=== PATIENT | female | born 1940 | race Caucasian/White ===

== ENCOUNTER 2019-09-11 15:50 | IRF | payer MEDICARE, SELFPAY ==
--- NOTE | ~2019-09-11 | XR_ITS ---
EXAMINATION: XR chest 2V DATE: 09/23/2019 14:01 INDICATION: Fever TECHNIQUE: Frontal and lateral views of the chest are obtained COMPARISON: None available FINDINGS: There are airspace opacities left lower lobe. A small left pleural effusion is present. The re is no pneumothorax. The heart size is normal for technique. There are changes of prior cardiac robert selvin. A loop monitor device is implanted in the left anterior chest wall. A coronary artery stent is noted. There is moderate thoracic spondylosis. IMPRESSION: 1. Small left pleural effusion. 2. Left basilar airspace opacity, consistent with atelectasis versus pneumonia. Reviewed, dictated and finalized at location A.
--- NOTE | ~2019-09-11 | MR_ITS ---
EXAMINATION: MR brain/brain stem wo/w con DATE: 09/19/2019 12:28 INDICATION: Weakness. TECHNIQUE: Magnetic resonance imaging (MRI) of the brain and brainstem was performed without and with 14 mL MultiHance intravenous contrast. Sequences included sagittal and axial T1-weighted FSE, axial diffusion-weighted FS EPI, axial T2*-weighted GRE, axial T2-weighted FLAIR Propeller, and axial T2-we ighted Propeller. Postcontrast sequences included axial and coronal T1-weighted FSE. Apparent diffusi on coefficient (ADC) maps were created. COMPARISON: None. FINDINGS: There is a large distribution of increased T2-weighted signal intensity involving the right frontal, temporal, parietal, and adnexa upper lobes, right insula, right basal ganglia, and right th alamus in expected distribution of right middle cerebral artery. There are areas of cortical and subc ortical increased T1-weighted signal intensity and decreased T2*weighted signal intensity within this volume. There is a large distribution of contrast enhancement within this volume with a cortical pre dominance. There is enlargement of this area of the brain with 10 mm leftward midline shift. Right la teral ventricle and third ventricle are small. There are scattered areas of nonspecific increased T2- weighted signal intensity in the left cerebral white matter, which is within normal limits for the pa tient's age. The paranasal sinuses are clear. There are likely changes of ocular lens replacement robert geries. The mastoid air cells are normal. IMPRESSION: 1. Large subacute ischemic infarct in the expected distribution of right middle cerebral artery with areas of hemorrhagic conversion. 2. 10 mm leftward midline shift. Reviewed, dictated and finalized at location A.
--- NOTE | ~2019-09-11 | XR_ITS ---
EXAMINATION: XR barium swallow modified DATE: 09/18/2019 11:01 INDICATION: Dysphagia. TECHNIQUE: Modified barium esophagram was performed by myself to administered fluoroscopy, in conjun ction with speech pathologist who administered barium in varying consistencies as per speech patholog ist documentation. This was recorded on tape. A single fluoroscopic spot image was recorded. The DAP for this procedure was 2.7 Gycm2. Fluoroscopy exposure time was 3.4 minutes. FINDINGS: Oral stage: Slow bolus formation. Pharyngeal phase: Adequate function. Laryngeal penetration: Trace with solids and thin liquids. Aspiration: None. Laryngeal sensitivity: Present. IMPRESSION: Trace laryngeal penetration with solids and thin liquids. Please refer to speech patholo gist findings and specific feeding recommendations. Reviewed, dictated and finalized at location A. IMPRESSION: Trace laryngeal penetration with solids and thin liquids. Please r efer to speech pathologist findings and specific feeding recommendations.
--- NOTE | ~2019-09-11 | MR_ITS ---
EXAMINATION: MR brain/brain stem wo con DATE: 09/26/2019 10:25 INDICATION: Stroke. Memory deficits. TECHNIQUE: Magnetic resonance imaging (MRI) of the brain and brainstem was performed without intraven ous contrast. Sequences included sagittal and axial T1-weighted SE, axial diffusion-weighted FS SE, a xial T2*-weighted GRE, axial T2-weighted FLAIR, and axial T2-weighted FSE. Postcontrast axial and cor onal T1-weighted SE was obtained. Apparent diffusion coefficient (ADC) maps were created. COMPARISON: Brain MR dated 09/19/2019 FINDINGS: Again seen is a large region of increased T2 signal loss of restricted diffusion involving the right frontal, temporal and parietal lobes as well as the right insula and portions of the right basal gang radha and right thalamus consistent with subacute infarct. Similar pattern of cortical and subcortical increased T1 signal with susceptibility artifact with signal loss on T2*weighted images consistent wi th regions of hemorrhagic conversion laminar necrosis. The degree of cytotoxic edema has decreased wi th reduction in the amount of associated mass effect with decrease in amount of effacement of the rig ht lateral ventricle and with resolution of prior right left midline shift at the ventricular septum. No new regions of restricted diffusion to suggest new acute infarct. No abnormal intracranial mass l esion or abnormal extra-axial fluid collections. There is mild age-appropriate scattered nonspecific increased T2-weighted signal intensity in the cerebral white matter, predominantly involving the deep and periventricular white matter. Symmetric prominence of the sulci and ventricles consistent with m ild age-appropriate diffuse cerebral volume loss. Flow voids are seen in the cerebral arteries on the T2-weighted sequences consistent with their expected patency. Changes of bilateral intraocular lens replacement. Mild mucoperiosteal thickening the bilateral ethmoid sinuses. IMPRESSION: 1. Decrease in cytotoxic edema and associated localized mass effect/swelling associated with a large subacute ischemic infarct in the expected vascular distribution of the right middle cerebral artery w ith unchanged regions of hemorrhagic conversion and laminar necrosis. The prior secondary right to le ft midline shift has resolved. Reviewed, dictated and finalized at location A. IMPRESSION: 1. Decrease in cytotoxic edema and associated localized mass effect/swelling as sociated with a large subacute ischemic infarct in the expected vascular distri bution of the right middle cerebral artery with unchanged regions of hemorrhagi c conversion and laminar necrosis. The prior secondary right to left midline sh ift has resolved.
[2019-09-11 15:50] VITALS: BP 144/55; PULSE 68; RESP 19; TEMP 36.7; O2SAT 99; BMI 26.2
--- NOTE | 2019-09-11 16:19 | ADMGEN ---
This patient, Randa Call, was admitted to [facility] Room 226-02. Patient/family oriented to hospital policies and general routines including ID bracelet, bed and alarms, visiting hours, pain management, procedures, bathroom and other care routines, personal items, smoking policy, room service/diet, and visiting hours. Valuables list has been completed. Information on how to activate the Rapid Response Team has been discussed. Patient/Family are encouraged to report perceived risks to care and to ask questions if they do not understand what they are told or what they should do.
[2019-09-11 18:12] LABS: Glucose Point of Care 233 (65-105)
[2019-09-11] MEDS: INSULIN ASPART (*BKC) 100 UNITS/ML SUB-Q (18:52)
[2019-09-11 21:11] VITALS: PULSE 78
[2019-09-11] MEDS: ATORVASTATIN 40 MG TABLET 80 MG PO (21:11)
[2019-09-11] MEDS: METOPROLOL TARTRATE 25 MG TABLET PO (21:11)
[2019-09-11 21:28] LABS: Glucose Point of Care 184 (65-105)
[2019-09-11 22:00] VITALS: BP 144/51; PULSE 69; RESP 18; TEMP 36.4; O2SAT 100
--- NOTE | 2019-09-11 22:30 | WPDCN ---
Assessment and Plan Assessment and plan (1) Recent cerebrovascular accident: Code(s): Z86.73 - Personal history of transient ischemic attack (TIA), and cerebral infarction without residual deficits Status: Acute Assessment and Plan: Currently undergoing rehab in [facility]. Patient does have residual dysphagia and is on a pureed diet with thickened liquids. Continue aspirin, clopidogrel, and statin. (2) Insulin dependent diabetes mellitus: Status: Acute Assessment and Plan: Continue basal insulin. Initiate sliding scale insulin, Accu-Cheks, and hypoglycemic protocol. (3) Essential hypertension: Code(s): I10 - Essential (primary) hypertension Status: Acute Assessment and Plan: Blood pressure on admission was 144/55. Her antihypertensives will be continued. Blood pressures will be monitored daily. (4) Hypothyroidism: Code(s): E03.9 - Hypothyroidism, unspecified Status: Acute Assessment and Plan: Continue levothyroxine. (5) Hyperlipidemia: Code(s): E78.5 - Hyperlipidemia, unspecified Status: Acute Assessment and Plan: Continue statin. She is also on Repatha. Additional Plan Thank you for allowing us to participate in this patient's care. Please do not hesitate to contact us with any questions. We will follow with you. Supervising physician for this medical consultation is Dr. Betty Mas. HPI Data of Consult Date/Time: 09/11/19 22:30 Requesting Physician: Dave Parson MD Primary Care Provider: Fili Brar, [facility] Consult Narrative Narrative: Randa Call is a 78-year-old right handed female with history of recent stroke, hypertension, hyperlipidemia, insulin-dependent diabetes, hypothyroidism, chronic kidney disease, chronic anemia, and coronary artery disease whom the hospitalist service has been consulted for help managing her chronic medical conditions. On August 30, 2019 she awoke from sleep with left-sided weakness and presented to [facility] where she was found to have a right M2 thrombus with mild cerebral edema. She was transferred to [facility] but was not a candidate for tPA given the fact that she presented greater than 4.5 hours after last known well. Unfortunately perfusion imaging was unfavorable and she was not a candidate for endovascular intervention. Additionally, her troponin levels were elevated and she was able to relay to staff that the day prior to her presentation, while outside gardening, that she developed substernal chest pain with shortness of breath. She was then taken to the clinical lab assistant and had percutaneous intervention with a drug-eluting stent to a [place] circumflex which revealed critical ostial stenosis. Her previous bypass grafts were patent and left ventricular systolic function was at the low end of normal. She was continued on aspirin and was started on clopidogrel (reportedly she was on Brilinta prior to this hospitalization). A repeat brain CT done a couple of days after presentation showed possible concerns of intracranial hemorrhage, although it was felt that the findings were due to retained contrast and she was kept on dual anti-platelet therapy. CT of the head and neck showed no significant carotid stenosis and the concern was that her stroke was due to a cardioembolic source/occult atrial fibrillation. A loop recorder has subsequently been inserted. She suffered an acute kidney injury, presumably due to contrast, and a temporary dialysis catheter was placed however she never required dialysis. Her left-sided weakness has improved each day, however she remains on a pureed and thickened liquid diet due to some
[2019-09-12 04:33] LABS: Basophils Absolute Auto 0.1 K/mm3 (0.0-0.1); Basophils Percent Auto 0.7 % (0.2-1.2); Eosinophils Absolute Auto 0.2 K/mm3 (0-0.3); Eosinophils Percent Auto 1.5 % (0-4.4); Hematocrit 27.4 % (37.0-47.0); Hemoglobin 8.9 g/dL (12.0-15.0); Immature Granulocyte Absolute 0.08 K/mm3 (0.00-0.031); Immature Granulocyte Percent A 0.6 % (0-0.5); Lymphocytes Absolute Auto 1.17 K/mm3 (0.9-3.2); Lymphocytes Percent Auto 8.5 % (18.3-44.2); Mean Corpuscular HGB Conc 32.5 g/dl (32-36); Mean Corpuscular Volume 98.6 fl (80-100); Mean Platelet Volume 10.4 fl (7.4-10.4); Monocytes Absolute Auto 0.9 K/mm3 (0.1-0.6); Monocytes Percent Auto 6.4 % (2.6-8.5); Neutrophils Absolute Auto 11.3 K/mm3 (1.3-6.7); Neutrophils Percent Auto 82.3 % (45.5-73.1); Platelet Count Result 341 k/mm3 (150-375); Red Blood Count 2.78 M/mm3 (4.2-5.4); Red Cell Distribution Width 14.4 % (11.5-14.5); White Blood Count 13.7 K/mm3 (4.5-10.0)
[2019-09-12 04:46] LABS: Blood Urea Nitrogen 19 mg/dL (7-17); Calcium 8.1 mg/dL (8.4-10.2); Carbon Dioxide 28 mmol/L (22-30); Chloride 99 mmol/L (98-107); Cholesterol 105 mg/dL (0-200); Estimated CRCL calculation 32 ml/min; Estimated Glomerular Filt Rate 40; Glucose 196 mg/dL (65-105); HDL Direct 73 mg/dL; Potassium 4.4 mmol/L (3.4-5.0); Sodium 133 mmol/L (137-145); Triglycerides 41 mg/dL (<150)
[2019-09-12 05:01] LABS: Hemoglobin A1C 8.6 % (<5.7)
[2019-09-12 05:02] LABS: LDL Cholesterol Direct < 30 mg/dL
[2019-09-12 06:00] VITALS: BP 135/60; PULSE 75; RESP 16; TEMP 36.7; O2SAT 100
[2019-09-12] MEDS: LEVOTHYROXINE SODIUM 150 MCG TABLET PO (06:14)
[2019-09-12 06:59] LABS: Glucose Point of Care 251 (65-105)
[2019-09-12] MEDS: INSULIN ASPART (*BKC) 100 UNITS/ML SUB-Q ×3 (07:28→17:14)
[2019-09-12] MEDS: INSULIN GLARGINE (*BKC) 100 UNITS/ML 10 UNITS SUB-Q (07:29)
[2019-09-12] MEDS: AMLODIPINE BESYLATE 2.5 MG TABLET PO (09:18)
[2019-09-12] MEDS: PAROXETINE 10 MG TABLET PO (09:18)
[2019-09-12] MEDS: CLOPIDOGREL BISULFATE 75 MG TABLET PO (09:18)
[2019-09-12] MEDS: ISOSORBIDE MONONITRATE 60 MG TAB.ER.24H PO (09:18)
[2019-09-12] MEDS: ASPIRIN 81 MG CHEWABLE TABLET PO (09:18)
[2019-09-12 09:19] VITALS: PULSE 75
[2019-09-12] MEDS: METOPROLOL TARTRATE 25 MG TABLET PO ×2 (09:19→20:52)
--- NOTE | 2019-09-12 10:00 | WPDREHABHP ---
H&P: HPI History of Present Illness Chief complaint: cva Narrative: Randa Call is a 78 year old female HISTORY OF PRESENT ILLNESS: The patient's primary rehab impairment category is stroke The etiologic diagnosis is acute right middle cerebral artery stroke I saw this patient [id number] on me the September 12, 2019 at 10:00 a.m. The patient is a 78-year-old the right-handed white woman with a past medical history of diabetes, hypertension, coronary artery disease, myocardial infarction, congestive heart failure, chronic renal insufficiency, hyperlipidemia, hypothyroidism, and depression who presented to [facility] on August 30, 2019 with left-sided weakness and slurring of the speech. Patient reported a cleaning her yard and had a sudden onset of severe Severe midsternal chest pain and shortness of breath. It subsided when she rested. She called a friend later when she was unable to get up and was taken to [facility]. TPA was not administered as she was outside the window for tPA. She was transferred to [facility] on August 30, [address] evaluation[address] A [address] angiography revealed right M2 thrombosis and no carotid stenosis. CT cerebral perfusion scan demonstrated a moderate core infarction with moderate surrounding penumbra in the right MCA distribution. she was admitted with diagnosis of right MCA stroke and non ST elevation myocardial infarction. Repeat CT of the head on September 01 showed contrast staining of the large right MCA distribution infarct involving the right temporal, insular, frontal, and parietal lobes with right to left 4 millimeter midline shift and increased mass effect. Neurology was involved and allowed for permissive hypertension and continue on her statin therapy and started on aspirin and Plavix. A loop recorder was placed to rule out atrial fibrillation. Cardiovascular consult was ordered for elevated troponin consistent with an non ST elevation myocardial infarction. An echocardiogram was performed and she was scheduled for cardiac catheterization her appetite August 27, 2019. Results were as follows. Critical three-vessel coronary artery disease with a de Dov stenosis of the ostium of the circumflex branch, patent 2 of 2 bypass grafts to the distal circumflex and right coronary artery. Ejection fraction 50% and moderate mitral regurgitation. A successful percutaneous coronary intervention was performed with implantation of 2.5 x 12 millimeter drug eluting stent in the ostium of the circumflex branch. Nephrology was consulted on August 31 for worsening renal function and IV fluids were stopped. Acute kidney injury was attributed to contrast nephropathy and further no for toxins were avoided. Her renal function continued to deteriorate and dialysis catheter was inserted on September 04, 2019. She underwent temporary dialysis and her creatinine issues doing down training and has improved to 1.33 at the time the screening was done. Dialysis has been discontinued and catheter was removed and September 10, 2019 patient was diagnosed with a urinary tract infection was placed on Rocephin and completed treatment. She passed her modified barium will swelling on September 07, 2019 and was placed on a mechanically altered missed and moist dysphagia 2 diet with nectar thickened liquids. Duff a hive for supplemental nutrition was removed on September 09 and patient is sitting 50% of breast 1st 90% of lunch on September 10, 2019. Physical examination is continue to reveal left-sided hemiparesis, impaired balance, decreased gross motor control and decreased safety awareness patient is awake and alert x4 and will be discharged to rehab and subcutaneous heparin for DVT prophylaxis. In patient insurance claims supervisor reviewed patient's chart on September 10, 2019 and made the following recommendations. Consider restarting Lantus at a lower dose than previous consider no more than 10 units of and titrate up as appropriate. If daytime blood glucose con
[2019-09-12 11:02] VITALS: BMI 26.2
[2019-09-12 11:49] LABS: Glucose Point of Care 301 (65-105)
[2019-09-12 14:00] VITALS: BP 143/57; PULSE 65; RESP 19; TEMP 36.6; O2SAT 100
--- NOTE | 2019-09-12 14:19 | PM.IMPN ---
Progress Note: A&P Assessment and Plan (1) Recent cerebrovascular accident: Code(s): Z86.73 - Personal history of transient ischemic attack (TIA), and cerebral infarction without residual deficits Status: Acute Assessment and Plan: Currently undergoing rehab in [facility]. Patient does have residual dysphagia and is on a pureed diet with thickened liquids. She remains on aspirin, clopidogrel, and statin therapy. (2) Insulin dependent diabetes mellitus: Status: Acute Assessment and Plan: Hgb A1c 8.6. Continue to monitor with Accu-Cheks and cover with SSI. Continue Lantus and adjust treatment as needed. (3) Essential hypertension: Code(s): I10 - Essential (primary) hypertension Status: Acute Assessment and Plan: Stable, last BP 135/60. She remains on home Norvasc, Imdur, Lopressor. (4) Coronary artery disease: Qualifiers: Coronary Disease-Associated Artery/Lesion type: unspecified vessel or lesion type [place] vs. transplanted heart: unspecified whether [place] or transplanted heart Associated angina: without angina Qualified Code(s): I25.10 - Atherosclerotic heart disease of [place] coronary artery without angina pectoris Code(s): I25.10 - Atherosclerotic heart disease of [place] coronary artery without angina pectoris Status: Chronic Assessment and Plan: Recently had PCI with stent to circumflex at [facility]. Stable, no chest pain. Continue her home medications as above. (5) Hypothyroidism: Qualifiers: Hypothyroidism type: unspecified Qualified Code(s): E03.9 - Hypothyroidism, unspecified Code(s): E03.9 - Hypothyroidism, unspecified Status: Acute Assessment and Plan: Continue home levothyroxine. (6) Hyperlipidemia: Qualifiers: Hyperlipidemia type: unspecified Qualified Code(s): E78.5 - Hyperlipidemia, unspecified Code(s): E78.5 - Hyperlipidemia, unspecified Status: Acute Assessment and Plan: Maintained on home statin therapy, she is also on Repatha. Additional Plan Thank you for allowing us to participate in this patient's care. Please do not hesitate to contact us with any questions. We will follow with you. Subjective Date/time seen: 09/12/19 1300 Interval history: Ms. Call is a 78yo F in [facility] following a right-sided CVA we are seeing in follow up for multiple medical comorbidities. She is in good spirits, feeling well today and offers no complaints other than being a bit tired from working with therapy today. She denies any chest pain, shortness of breath, or cough. She has tolerated oral intake without nausea, vomiting, or abdominal pain. Review of Systems Review of Systems: Narrative: Twelve systems were reviewed with pertinent positives and negatives as per HPI. Exam Narrative: Exam Narrative: General: Female resting comfortably in bed in no acute distress. HEENT: Normocephalic, EOMI, oral mucosa moist. Cardiovascular: Rate and rhythm regular. Respiratory: Lungs clear to auscultation. Respirations are even and nonlabored. Abdomen: Soft, non-tender, non-distended, bowel sounds present. Extremities: Peripheral pulses intact. No edema or erythema. Scattered ecchymosis to bilateral upper extremities. Neuro: Alert and oriented to self, place, and time. Cranial nerves II-XII grossly intact. Speech is clear. Objective Data Vital Signs Vital Signs: Last Vital Signs Temp 98.1 F 09/12/19 06:00 Pulse 75 09/12/19 09:19 Resp 16 09/12/19 06:00 BP 135/60 09/12/19 06:00 Pulse Ox 100 09/12/19 06:00 Intake/Output Intake/Output: Intake & Output 09/09/19 09/10/19 09/11/19 09/12/19 23:59 23:59 23:59 23:59 Intake Total 60 600 Balance 60 600 Meds/Results Medicat
[2019-09-12 17:12] LABS: Glucose Point of Care 213 (65-105)
[2019-09-12] MEDS: ATORVASTATIN 40 MG TABLET 80 MG PO (20:52)
[2019-09-12 21:08] LABS: Glucose Point of Care 169 (65-105)
[2019-09-12 22:00] VITALS: BP 151/49; PULSE 69; RESP 18; TEMP 37; O2SAT 96
[2019-09-13] MEDS: LEVOTHYROXINE SODIUM 150 MCG TABLET PO (05:50)
[2019-09-13 06:00] VITALS: BP 166/61; PULSE 74; RESP 18; TEMP 37; O2SAT 100
[2019-09-13 06:56] LABS: Glucose Point of Care 114 (65-105)
[2019-09-13] MEDS: INSULIN GLARGINE (*BKC) 100 UNITS/ML 10 UNITS SUB-Q (09:43)
[2019-09-13 09:44] VITALS: PULSE 74
[2019-09-13] MEDS: PAROXETINE 10 MG TABLET PO (09:44)
[2019-09-13] MEDS: ASPIRIN 81 MG CHEWABLE TABLET PO (09:44)
[2019-09-13] MEDS: CLOPIDOGREL BISULFATE 75 MG TABLET PO (09:44)
[2019-09-13] MEDS: AMLODIPINE BESYLATE 2.5 MG TABLET PO (09:44)
[2019-09-13] MEDS: METOPROLOL TARTRATE 25 MG TABLET PO ×2 (09:44→21:12)
[2019-09-13] MEDS: ISOSORBIDE MONONITRATE 60 MG TAB.ER.24H PO (09:44)
--- NOTE | 2019-09-13 10:13 | PC.NURSE ---
Spoke to patient's son this morning to see if he knew if she had any of the subq medicaton Repatha that is nonformulary to bring in. Pt's son stated he would check and see if she has some at home. Also asked if he knew what her wishes were regarding her advanced directive and code status. He stated she has always said she did not want to be on life support. Care coordination was requesting a copy of her advance directive be sent to us. Patient advance directive here. speaking with patient again regarding wishes.
--- NOTE | 2019-09-13 11:42 | PCDIET ---
Nutrition Follow-Up Complete: Nutrition Diagnosis: Suboptimal oral intake related to decreased appetite as evidenced by intakes 30-50%. Nutrition Goal: Patient to consume 50% of meals/supplements or greater. Goal not met. Patient consuming 25-50% of meals on diabetic, pureed diet with mildly thick liquids. Took minimal amount of oral supplement. Recommend changing supplement to no sugar added Thrive Ice Cream (230kcal, 9g protein - mildly thick consistency) BID. Last recorded weight is 76 kg. Bowel Motility: +BM on 09/12/19. Labs Reviewed: Glu (114) - improved Meds Noted: Novolog, Lantus Additional Notes: Groin macerated. Right elbow and left leg with scabs. Will continue to monitor with same goal. Nutrition Monitoring and Evaluation: Follow up in 5 days.
[2019-09-13 11:46] LABS: Glucose Point of Care 221 (65-105)
[2019-09-13] MEDS: INSULIN ASPART (*BKC) 100 UNITS/ML SUB-Q ×2 (12:46→17:15)
[2019-09-13 14:00] VITALS: BP 152/51; PULSE 67; RESP 18; TEMP 36.6; O2SAT 96
--- NOTE | 2019-09-13 14:06 | WPDNEURORHBP ---
Subjective Date/time seen: 09/13/19 14:06 Interval history: this 78-year-old woman is here after having had a right middle cerebral artery territory ischemic infarct with visual field defect and left-sided hemiparesis she is fairly stable denies any headache nausea vomiting chest pain shortness of breath she periodically has some visual hallucination and delusions which is combination of the stroke and also sundowning but remains stable during the daytime only happens after she wakes up from the sleep Review of Systems Review of Systems: All systems reviewed & are unremarkable except as noted in HPI and below Functional Status Ambulation Ability Ability to Ambulate 10 Feet: Moderate Assistance X 1 Ability to Ambulate 50 Feet With 2 Turns: Moderate Assistance X 1 Ambulation Assistive Devices: Walker, Wheeled Transfers Ability Ability to Transfer In/Out of Chair: Moderate Assistance X 1 Exam Const: General: comfortable and no acute distress HENMT: General nose exam: Normal nares present Mouth: Yes moist mucous membranes Eyes: General: appearance normal, both eyes and all related structures Other: left-sided visual field defect which is rather dense Neck: Neck: supple and no JVD Resp: Effort & Inspection: normal respiratory effort Auscultation: clear to auscultation bilaterally Cardio: Rate: regular rate Rhythm: regular rhythm GI: GI Palp: Yes Soft to palpation Auscultation: normal bowel sounds Skin: General skin exam: normal color and no rashes or lesions noted Neuro: Other: patient is awake alert oriented time place and person with fairly decent speech and language function left-sided visual defect and the left-sided hemiparesis Extrem: General: normal to inspection Psych: Mental Status: mental status grossly normal Objective Data Vital Signs Vital Signs: Vital Signs - 24 hr 09/13/19 21:12 09/13/19 21:47 09/14/19 06:00 Temperature 37.0 C 36.1 C L Pulse Rate 78 68 73 Respiratory Rate 20 20 Blood Pressure 150/55 H 167/50 H Pulse Oximetry 99 100 09/14/19 09:28 Temperature Pulse Rate 73 Respiratory Rate Blood Pressure Pulse Oximetry Intake/Output Intake/Output: Intake & Output 09/11/19 09/12/19 09/13/19 09/14/19 23:59 23:59 23:59 23:59 Intake Total 60 850 240 360 Balance 60 850 240 360 Meds/Results Medications: Active Medications Generic Name Dose Route Start Last Admin Trade Name Freq PRN Reason Stop Dose Admin Amlodipine Besylate 5 mg 09/13/19 15:46 09/14/19 09:28 Norvasc PO 5 mg DAILY YAMILE Administration Aspirin 81 mg 09/12/19 09:00 09/14/19 09:28 Aspirin Chewable PO 81 mg DAILY YAMILE Administration Atorvastatin Calcium 80 mg 09/11/19 21:00 09/13/19 21:12 Lipitor PO 80 mg HS YAMILE Administration Clopidogrel Bisulfate 75 mg 09/12/19 09:00 09/14/19 09:28 Plavix PO 75 mg DAILY YAMILE Administration Dextrose 12.5 gm 09/11/19 16:27 Dextrose 50% Syringe IV PUSH PRN PRN Hypoglycemia Protocol Dextrose 12.5 gm 09/11/19 17:42 Dextrose 50% Syringe IV PUSH PRN PRN Hypoglycemia Protocol Glucagon 1 mg 09/11/19 16:27 Glucagon For Inj IM PRN PRN Hypoglycemia Protocol Glucagon 1 mg 09/11/19 17:42 Glucagon For Inj IM PRN PRN Hypoglycemia Protocol Glucose 15 gm 09/11/19 16:27 Glutose 15 PO PRN PRN Hypoglycemia Protocol Glucose 15 gm 09/11/19 17:42 Glutose 15 PO PRN PRN Hypoglycemia Protocol Dextrose 1,000 mls @ 100 mls/hr 09/11/19 16:27 Dextrose 5% 1,000 Ml IVPB PRN PRN Hypoglycemia Protocol Dextrose 1,000 mls @ 100 mls/hr 09/11/19 17:42 Dextrose 5% 1,000 Ml IVPB PRN PRN Hypoglycemia Protocol Insulin Aspart 2 - 5 units 09/11/19 17:00 09/14/19 11:29 Novolog SUB-Q Not Given TIDWM [facility] Protocol Insulin Glargine 10 units 09/12/19 09:00 09/14/19 07:23
--- NOTE | 2019-09-13 15:42 | PM.IMPN ---
Progress Note: A&P Assessment and Plan (1) Recent cerebrovascular accident: Code(s): Z86.73 - Personal history of transient ischemic attack (TIA), and cerebral infarction without residual deficits Status: Acute Assessment and Plan: Currently undergoing rehab in [facility]. Patient does have residual dysphagia and is on a pureed diet with thickened liquids. She remains on aspirin, clopidogrel, and statin therapy. (2) Insulin dependent diabetes mellitus: Status: Chronic Assessment and Plan: Hgb A1c 8.6. Continue to monitor with Accu-Cheks and cover with SSI. Continue Lantus and adjust treatment as needed. (3) Essential hypertension: Code(s): I10 - Essential (primary) hypertension Status: Chronic Assessment and Plan: She remains on home Norvasc, Imdur, Lopressor. BPs elevated to 160s systolic, can increase her home Norvasc and monitor response. (4) Coronary artery disease: Qualifiers: Associated angina: without angina Coronary Disease-Associated Artery/Lesion type: unspecified vessel or lesion type [place] vs. transplanted heart: unspecified whether [place] or transplanted heart Qualified Code(s): I25.10 - Atherosclerotic heart disease of [place] coronary artery without angina pectoris Code(s): I25.10 - Atherosclerotic heart disease of [place] coronary artery without angina pectoris Status: Chronic Assessment and Plan: Recently had PCI with stent to circumflex at [facility]. Stable, no chest pain. Continue her home medications as above. (5) Hypothyroidism: Qualifiers: Hypothyroidism type: unspecified Qualified Code(s): E03.9 - Hypothyroidism, unspecified Code(s): E03.9 - Hypothyroidism, unspecified Status: Acute Assessment and Plan: Continue home levothyroxine. (6) Hyperlipidemia: Qualifiers: Hyperlipidemia type: unspecified Qualified Code(s): E78.5 - Hyperlipidemia, unspecified Code(s): E78.5 - Hyperlipidemia, unspecified Status: Acute Assessment and Plan: Maintained on home statin therapy, she is also on Repatha. Additional Plan Thank you for allowing us to participate in this patient's care. Please do not hesitate to contact us with any questions. We will follow with you. Subjective Date/time seen: 09/13/19 1400 Interval history: Ms. Call is a 78yo F in [facility] following a right-sided CVA we are seeing in follow up for management of several medical comorbidities. She is feeling well today and offers no complaints. She denies any chest pain, shortness of breath, or cough. She has tolerated oral intake without nausea, vomiting, or abdominal pain. She is working well with therapy. Review of Systems Review of Systems: Narrative: Twelve systems were reviewed with pertinent positives and negatives as per HPI. Exam Narrative: Exam Narrative: General: Female resting comfortably in bed in no acute distress. HEENT: Normocephalic, EOMI, oral mucosa moist. Cardiovascular: Rate and rhythm regular. Respiratory: Lungs clear to auscultation. Respirations are even and nonlabored. Abdomen: Soft, non-tender, non-distended, bowel sounds present. Extremities: Peripheral pulses intact. No edema or erythema. Scattered ecchymosis to bilateral upper extremities. Neuro: Alert and oriented to self, place, and time. Cranial nerves II-XII grossly intact. Speech is clear. Objective Data Vital Signs Vital Signs: Last Vital Signs Temp 98 F 09/13/19 14:00 Pulse 67 09/13/19 14:00 Resp 18 09/13/19 14:00 BP 152/51 H 09/13/19 14:00 Pulse Ox 96 09/13/19 14:00 Intake/Output Intake/Output: Intake & Output 09/10/19 09/11/19 09/12/19 09/13/19 23:59 23:59 23:59 23:59 Intake Total 60 850 120 Balance 60
[2019-09-13 17:26] LABS: Glucose Point of Care 219 (65-105)
--- NOTE | 2019-09-13 19:00 | PC.NURSE ---
spoke with Patient's son regarding code status. Pt son stated patient always told him she did not want to be on life support. Spoke with patient as well . Patient stated she would like for us to try to resucsitate her but she does not want her life prolonged on life support. She stated she would like to stay a full code and that if for some reason she needs CPR she has a healthcare POA and they have the ability to further decide from there according to the wishes in her advanced directives.
[2019-09-13 21:12] VITALS: PULSE 78
[2019-09-13] MEDS: ATORVASTATIN 40 MG TABLET 80 MG PO (21:12)
[2019-09-13 21:47] VITALS: BP 150/55; PULSE 68; RESP 20; TEMP 37; O2SAT 99
[2019-09-13 21:56] LABS: Glucose Point of Care 150 (65-105)
[2019-09-14 06:00] VITALS: BP 167/50; PULSE 73; RESP 20; TEMP 36.1; O2SAT 100
[2019-09-14] MEDS: LEVOTHYROXINE SODIUM 150 MCG TABLET PO (06:00)
[2019-09-14 07:03] LABS: Glucose Point of Care 151 (65-105)
[2019-09-14] MEDS: INSULIN GLARGINE (*BKC) 100 UNITS/ML 10 UNITS SUB-Q (07:23)
[2019-09-14 09:28] VITALS: PULSE 73
[2019-09-14] MEDS: CLOPIDOGREL BISULFATE 75 MG TABLET PO (09:28)
[2019-09-14] MEDS: METOPROLOL TARTRATE 25 MG TABLET PO ×2 (09:28→20:45)
[2019-09-14] MEDS: ASPIRIN 81 MG CHEWABLE TABLET PO (09:28)
[2019-09-14] MEDS: AMLODIPINE BESYLATE 5 MG TABLET PO (09:28)
[2019-09-14] MEDS: PAROXETINE 10 MG TABLET PO (09:28)
[2019-09-14] MEDS: ISOSORBIDE MONONITRATE 60 MG TAB.ER.24H PO (09:29)
--- NOTE | 2019-09-14 10:35 | RPD ---
INDIVIDUALIZED PLAN OF CARE FOR Randa Call Brief Synthesis of Pre-Admission Screen, Post-Admission Evaluation and Therapy Evaluations: The patient presents to rehab with Acute right MCA stroke. Comorbidities include acute kidney injury and renal failure requiring dialysis, status post dialysis catheter insertion and removal, NSTEMI, status post loop recorder. hypertension, coronary artery disease, diabetes mellitus with hyperglycemia and hypoglycemia, dyslipidemia, dysphagia, congestive heart failure, edema, malnutrition, aphasia, left-sided hemiparesis, urinary tract infection, elevated troponin, hypothyroidism, depression, anion gap metabolic acidosis, status post cardiac catheterization with stent placement. The patient requires physician services for neurology services, medical oversight, and coordination of care.Emotional needs will be monitored as depression is a common sequelae of stroke. The patient needs physician monitoring and treatment of hypertension, hyperglycemia, hypoglycemia, dysphagia, monitoring for adverse reactions to new medications, monitoring of infection, and pain control. The patient requires nursing services for frequent neuro checks, anticoagulation therapy, medication management and education, pressure relief and skin care management, monitoring of labs, diabetes management and education, and fall/safety precautions. Deficits include:ADLs, Balance, Endurance, Family Training/Education, Mobility, Pain Management, ROM, Safety, Strength, Swallowing, Transfers Electronic Prepress Technician/Case Management for: Discharge Planning and Patient/Family Counseling Physical Therapy: 5 days per week for 60 minutes. Treatments may include: Therapeutic Exercise, Gait Training, Neuromuscular Re-education, Transfer Training, Community Reintegration, Bed Mobility, Patient/Family Education, Wheelchair Mobility Group Therapy/Concurrent Therapy Rationales: -Improve attention span during functional activities in a distracted environment. -Enhance problem solving and/or adequate judgment skills during functional activities in a distracted environment. -Promote increased safety awareness in a distracted environment to reduce fall risk with functional tasks, transfers, and ambulation to allow a more safe, self-sufficient return to the home environment. -Improve dynamic balance skills to promote safety and independence with functional activities in a distracted environment for maximum gain. Occupational Therapy: 5 days per week for 60 minutes. Treatments may include: Therapeutic Exercise, Therapeutic Activity, Cognitive Training, Self-Care Transfer Training, Community Reintegration, Home Management, Patient/Family Education, Wheelchair Mobility Training, Energy Conservation Training Group Therapy/Concurrent Therapy Rationales: -Allow therapist to observe and teach generalization and carry-over of skills learned in individual therapy. -Enhance problem solving and sequencing skills during therapeutic activities in a distracted environment. -Promote increased safety awareness in a realistic setting to reduce fall risk with functional tasks due to visual and verbal distractions. -Increase functional level with ADLs, ADL transfers and use of adaptive equipment through therapeutic activities with others while promoting safety to allow a more safe, self-sufficient return home. Speech Therapy: 5 days per week for 60 minutes. Treatments may include: Dysphasia Therapy, Speech/Language/Communication Therapy, Cognitive Training, Patient/Family Education Group Therapy/Concurrent Therapy - Rationale: -Allow therapist to observe and teach generalization and carry-over of skills learned in individual therapy. -Improve comprehension skills with complex or abstract ideas through discussion in a realistic setting. -Enhance problem solving skills with complex issues during activities in a distracted environment. -Promote increased memory skills and concentration in a distracted environment
[2019-09-14 11:35] LABS: Glucose Point of Care 200 (65-105)
[2019-09-14 14:00] VITALS: BP 153/54; PULSE 67; RESP 18; TEMP 36.7; O2SAT 100
--- NOTE | 2019-09-14 15:35 | WPDNEURORHBP ---
Subjective Date/time seen: 09/14/19 15:35 Interval history: this 78-year-old woman is here after having a stroke with left-sided hemiparesis and left-sided visual field defect she is quite stable doing fairly well denies any headache nausea vomiting chest pain shortness of breath the hospital is following her diabetic status Review of Systems Review of Systems: All systems reviewed & are unremarkable except as noted in HPI and below Functional Status Ambulation Ability Ability to Ambulate 10 Feet: Moderate Assistance X 1 Ability to Ambulate 50 Feet With 2 Turns: Moderate Assistance X 1 Ambulation Assistive Devices: Walker, Wheeled Transfers Ability Ability to Transfer In/Out of Chair: Moderate Assistance X 1 Exam Const: General: comfortable and no acute distress HENMT: General nose exam: Normal nares present Mouth: Yes moist mucous membranes Eyes: General: appearance normal, both eyes and all related structures Neck: Neck: supple and no JVD Resp: Effort & Inspection: normal respiratory effort Auscultation: clear to auscultation bilaterally Cardio: Rate: regular rate Rhythm: regular rhythm GI: GI Palp: Yes Soft to palpation Auscultation: normal bowel sounds Skin: General skin exam: normal color and no rashes or lesions noted Neuro: Other: she is awake and alert and well oriented to time place and person is speech language functions are normal she has a left-sided visual field defect left-sided hemiparesis which are improved Extrem: General: normal to inspection Psych: Mental Status: mental status grossly normal Objective Data Vital Signs Vital Signs: Vital Signs - 24 hr 09/13/19 21:12 09/13/19 21:47 09/14/19 06:00 Temperature 37.0 C 36.1 C L Pulse Rate 78 68 73 Respiratory Rate 20 20 Blood Pressure 150/55 H 167/50 H Pulse Oximetry 99 100 09/14/19 09:28 Temperature Pulse Rate 73 Respiratory Rate Blood Pressure Pulse Oximetry Intake/Output Intake/Output: Intake & Output 09/11/19 09/12/19 09/13/19 09/14/19 23:59 23:59 23:59 23:59 Intake Total 60 850 240 360 Balance 60 850 240 360 Meds/Results Medications: Active Medications Generic Name Dose Route Start Last Admin Trade Name Freq PRN Reason Stop Dose Admin Amlodipine Besylate 5 mg 09/13/19 15:46 09/14/19 09:28 Norvasc PO 5 mg DAILY YAMILE Administration Aspirin 81 mg 09/12/19 09:00 09/14/19 09:28 Aspirin Chewable PO 81 mg DAILY YAMILE Administration Atorvastatin Calcium 80 mg 09/11/19 21:00 09/13/19 21:12 Lipitor PO 80 mg HS YAMILE Administration Clopidogrel Bisulfate 75 mg 09/12/19 09:00 09/14/19 09:28 Plavix PO 75 mg DAILY YAMILE Administration Dextrose 12.5 gm 09/11/19 16:27 Dextrose 50% Syringe IV PUSH PRN PRN Hypoglycemia Protocol Dextrose 12.5 gm 09/11/19 17:42 Dextrose 50% Syringe IV PUSH PRN PRN Hypoglycemia Protocol Glucagon 1 mg 09/11/19 16:27 Glucagon For Inj IM PRN PRN Hypoglycemia Protocol Glucagon 1 mg 09/11/19 17:42 Glucagon For Inj IM PRN PRN Hypoglycemia Protocol Glucose 15 gm 09/11/19 16:27 Glutose 15 PO PRN PRN Hypoglycemia Protocol Glucose 15 gm 09/11/19 17:42 Glutose 15 PO PRN PRN Hypoglycemia Protocol Dextrose 1,000 mls @ 100 mls/hr 09/11/19 16:27 Dextrose 5% 1,000 Ml IVPB PRN PRN Hypoglycemia Protocol Dextrose 1,000 mls @ 100 mls/hr 09/11/19 17:42 Dextrose 5% 1,000 Ml IVPB PRN PRN Hypoglycemia Protocol Insulin Aspart 2 - 5 units 09/11/19 17:00 09/14/19 11:29 Novolog SUB-Q Not Given TIDWM [facility] Protocol Insulin Glargine 10 units 09/12/19 09:00 09/14/19 07:23 Lantus SUB-Q 10 units DAILY YAMILE Administration Isosorbide Mononitrate 60 mg 09/12/19 09:00 09/14/19 09:29 Imdur PO 60 mg DAILY YAMILE Administration Levothyroxine Sodium 150 mcg 09/12/19
--- NOTE | 2019-09-14 15:58 | PM.IMPN ---
Progress Note: A&P Assessment and Plan (1) Recent cerebrovascular accident: Code(s): Z86.73 - Personal history of transient ischemic attack (TIA), and cerebral infarction without residual deficits Status: Acute Assessment and Plan: Currently undergoing rehab [facility]. Patient does have residual dysphagia and is on a pureed diet with thickened liquids. She remains on aspirin, clopidogrel, and statin therapy. (2) Insulin dependent diabetes mellitus: Status: Chronic Assessment and Plan: Hgb A1c 8.6. Continue to monitor with Accu-Cheks and cover with SSI. Continue Lantus and adjust treatment as needed. (3) Essential hypertension: Code(s): I10 - Essential (primary) hypertension Status: Chronic Assessment and Plan: She remains on home Norvasc, Imdur, Lopressor. Increased home Norvasc yesterday, monitor BP. (4) Coronary artery disease: Qualifiers: Coronary Disease-Associated Artery/Lesion type: unspecified vessel or lesion type [place] vs. transplanted heart: unspecified whether [place] or transplanted heart Associated angina: without angina Qualified Code(s): I25.10 - Atherosclerotic heart disease of [place] coronary artery without angina pectoris Code(s): I25.10 - Atherosclerotic heart disease of [place] coronary artery without angina pectoris Status: Chronic Assessment and Plan: Recently had PCI with stent to circumflex at [facility]. Stable, no chest pain. Continue her home medications as above. (5) Hypothyroidism: Qualifiers: Hypothyroidism type: unspecified Qualified Code(s): E03.9 - Hypothyroidism, unspecified Code(s): E03.9 - Hypothyroidism, unspecified Status: Acute Assessment and Plan: Continue home levothyroxine. (6) Hyperlipidemia: Qualifiers: Hyperlipidemia type: unspecified Qualified Code(s): E78.5 - Hyperlipidemia, unspecified Code(s): E78.5 - Hyperlipidemia, unspecified Status: Acute Assessment and Plan: Maintained on home Statin therapy, she is also on Repatha they are trying to bring from home. Additional Plan Thank you for allowing us to participate in this patient's care. Please do not hesitate to contact us with any questions. We will follow with you. Subjective Date/time seen: 09/14/19 15:45 Interval history: Ms. Call is a 78yo F in [facility] following a right-sided CVA we are seeing in follow up for management of several medical comorbidities. She is resting comfortably, feeling well today and offers no complaints. She denies any chest pain, shortness of breath, or cough. She has tolerated oral intake without nausea, vomiting, or abdominal pain. Review of Systems Review of Systems: Narrative: Twelve systems were reviewed with pertinent positives and negatives as per HPI. Exam Narrative: Exam Narrative: General: Female resting comfortably in bed in no acute distress. HEENT: Normocephalic, EOMI, oral mucosa moist. Cardiovascular: Rate and rhythm regular. Respiratory: Lungs clear to auscultation. Respirations are even and non-labored. Abdomen: Soft, non-tender, non-distended, bowel sounds present. Extremities: Peripheral pulses intact. No edema or erythema. Neuro: Alert and oriented to self, place, and time. Cranial nerves II-XII grossly intact. Speech is clear. Objective Data Vital Signs Vital Signs: Last Vital Signs Temp 98.0 F 09/14/19 14:00 Pulse 67 09/14/19 14:00 Resp 18 09/14/19 14:00 BP 153/54 H 09/14/19 14:00 Pulse Ox 100 09/14/19 14:00 Intake/Output Intake/Output: Intake & Output 09/11/19 09/12/19 09/13/19 09/14/19 23:59 23:59 23:59 23:59 Intake Total 60 850 240 360 Balance 60 850 240 360 Meds/Results Medications: Active Medicati
[2019-09-14 17:42] LABS: Glucose Point of Care 173 (65-105)
[2019-09-14 20:45] VITALS: PULSE 68
[2019-09-14] MEDS: ATORVASTATIN 40 MG TABLET 80 MG PO (20:46)
[2019-09-14 21:39] LABS: Glucose Point of Care 173 (65-105)
[2019-09-14 22:00] VITALS: BP 149/55; PULSE 68; RESP 16; TEMP 36.6; O2SAT 100
[2019-09-15 06:00] VITALS: BP 152/70; PULSE 71; RESP 18; TEMP 36.9; O2SAT 100
[2019-09-15] MEDS: LEVOTHYROXINE SODIUM 150 MCG TABLET PO (06:31)
[2019-09-15 06:51] LABS: Glucose Point of Care 167 (65-105)
[2019-09-15 08:00] VITALS: PULSE 71; RESP 18; O2SAT 100
[2019-09-15] MEDS: ISOSORBIDE MONONITRATE 60 MG TAB.ER.24H PO (08:52)
[2019-09-15 08:53] VITALS: PULSE 71
[2019-09-15] MEDS: AMLODIPINE BESYLATE 5 MG TABLET PO (08:53)
[2019-09-15] MEDS: ASPIRIN 81 MG CHEWABLE TABLET PO (08:53)
[2019-09-15] MEDS: METOPROLOL TARTRATE 25 MG TABLET PO ×2 (08:53→20:42)
[2019-09-15] MEDS: INSULIN GLARGINE (*BKC) 100 UNITS/ML 10 UNITS SUB-Q (08:53)
[2019-09-15] MEDS: CLOPIDOGREL BISULFATE 75 MG TABLET PO (08:53)
[2019-09-15] MEDS: PAROXETINE 10 MG TABLET PO (08:53)
[2019-09-15 12:07] LABS: Glucose Point of Care 302 (65-105)
--- NOTE | 2019-09-15 12:56 | WPDNEURORHBP ---
Subjective Date/time seen: Left hemiparesiswith left visual field cut09/15/19 12:56 Review of Systems Review of Systems: All systems reviewed & are unremarkable except as noted in HPI and below Functional Status Ambulation Ability Ability to Ambulate 10 Feet: Moderate Assistance X 1 Ability to Ambulate 50 Feet With 2 Turns: Moderate Assistance X 1 Ambulation Assistive Devices: Walker, Wheeled Transfers Ability Ability to Transfer In/Out of Chair: Moderate Assistance X 1 Exam Const: General: cooperative, comfortable and no acute distress HENMT: Head: normal to inspection General nose exam: No nasal discharge present Eyes: General: appearance normal, both eyes and all related structures Neck: Neck: full ROM, supple and no JVD Resp: Effort & Inspection: normal respiratory effort Auscultation: clear to auscultation bilaterally Cardio: Rate: regular rate Rhythm: regular rhythm GI: GI Palp: Yes No hepatosplenomegaly present Auscultation: normal bowel sounds Skin: General skin exam: no rashes or lesions noted Neuro: Motor exam (neuro): Abnormal motor strength present (improving left hemiparesis) Psych: Appearance: grossly normal Objective Data Vital Signs Vital Signs: Vital Signs - 24 hr 09/14/19 14:00 09/14/19 20:45 09/14/19 22:00 Temperature 36.7 C 36.6 C Pulse Rate 67 68 68 Respiratory Rate 18 16 Blood Pressure 153/54 H 149/55 H Pulse Oximetry 100 100 09/15/19 06:00 09/15/19 08:00 09/15/19 08:53 Temperature 36.9 C Pulse Rate 71 71 71 Respiratory Rate 18 18 Blood Pressure 152/70 H Pulse Oximetry 100 100 Intake/Output Intake/Output: Intake & Output 09/12/19 09/13/19 09/14/19 09/15/19 23:59 23:59 23:59 23:59 Intake Total 850 240 600 120 Balance 850 240 600 120 Meds/Results Medications: Active Medications Generic Name Dose Route Start Last Admin Trade Name Freq PRN Reason Stop Dose Admin Amlodipine Besylate 5 mg 09/13/19 15:46 09/15/19 08:53 Norvasc PO 5 mg DAILY YAMILE Administration Aspirin 81 mg 09/12/19 09:00 09/15/19 08:53 Aspirin Chewable PO 81 mg DAILY YAMILE Administration Atorvastatin Calcium 80 mg 09/11/19 21:00 09/14/19 20:46 Lipitor PO 80 mg HS YAMILE Administration Clopidogrel Bisulfate 75 mg 09/12/19 09:00 09/15/19 08:53 Plavix PO 75 mg DAILY YAMILE Administration Dextrose 12.5 gm 09/11/19 16:27 Dextrose 50% Syringe IV PUSH PRN PRN Hypoglycemia Protocol Dextrose 12.5 gm 09/11/19 17:42 Dextrose 50% Syringe IV PUSH PRN PRN Hypoglycemia Protocol Glucagon 1 mg 09/11/19 16:27 Glucagon For Inj IM PRN PRN Hypoglycemia Protocol Glucagon 1 mg 09/11/19 17:42 Glucagon For Inj IM PRN PRN Hypoglycemia Protocol Glucose 15 gm 09/11/19 16:27 Glutose 15 PO PRN PRN Hypoglycemia Protocol Glucose 15 gm 09/11/19 17:42 Glutose 15 PO PRN PRN Hypoglycemia Protocol Dextrose 1,000 mls @ 100 mls/hr 09/11/19 16:27 Dextrose 5% 1,000 Ml IVPB PRN PRN Hypoglycemia Protocol Dextrose 1,000 mls @ 100 mls/hr 09/11/19 17:42 Dextrose 5% 1,000 Ml IVPB PRN PRN Hypoglycemia Protocol Insulin Aspart 2 - 5 units 09/11/19 17:00 09/15/19 08:52 Novolog SUB-Q Not Given TIDWM [facility] Protocol Insulin Glargine 10 units 09/12/19 09:00 09/15/19 08:53 Lantus SUB-Q 10 units DAILY YAMILE Administration Isosorbide Mononitrate 60 mg 09/12/19 09:00 09/15/19 08:52 Imdur PO 60 mg DAILY YAMILE Administration Levothyroxine Sodium 150 mcg 09/12/19 06:30 09/15/19 06:31 Synthroid PO 150 mcg 0630 YAMILE Administration Metoprolol Tartrate 25 mg 09/11/19 21:00 09/15/19 08:53 Lopressor PO 25 mg Q12HR YAMILE Administration Non-Formulary Medication 140 mg 09/17/19 09:00 Evolocumab [Repatha Syringe] SUB-Q 09/17/19 09:01 ONCE ONE Paroxetine HCl 1
[2019-09-15] MEDS: INSULIN ASPART (*BKC) 100 UNITS/ML SUB-Q ×2 (13:17→17:11)
[2019-09-15 14:00] VITALS: BP 154/58; PULSE 80; RESP 18; TEMP 36.7; O2SAT 98
[2019-09-15 16:56] LABS: Glucose Point of Care 212 (65-105)
[2019-09-15 20:42] VITALS: PULSE 76
[2019-09-15] MEDS: ATORVASTATIN 40 MG TABLET 80 MG PO (20:42)
[2019-09-15 21:18] LABS: Glucose Point of Care 204 (65-105)
[2019-09-15 22:00] VITALS: BP 146/52; PULSE 71; RESP 18; TEMP 37.1; O2SAT 100
[2019-09-16 06:00] VITALS: BP 168/58; PULSE 72; RESP 19; TEMP 37.1; O2SAT 100
[2019-09-16 06:38] LABS: Glucose Point of Care 219 (65-105)
[2019-09-16] MEDS: LEVOTHYROXINE SODIUM 150 MCG TABLET PO (06:49)
[2019-09-16 08:00] VITALS: PULSE 72; RESP 19; O2SAT 100
[2019-09-16] MEDS: ASPIRIN 81 MG CHEWABLE TABLET PO (09:34)
[2019-09-16] MEDS: CLOPIDOGREL BISULFATE 75 MG TABLET PO (09:34)
[2019-09-16] MEDS: ISOSORBIDE MONONITRATE 60 MG TAB.ER.24H PO (09:35)
[2019-09-16] MEDS: PAROXETINE 10 MG TABLET PO (09:35)
[2019-09-16] MEDS: AMLODIPINE BESYLATE 5 MG TABLET PO (09:35)
[2019-09-16] MEDS: METOPROLOL TARTRATE 25 MG TABLET PO ×2 (09:35→19:41)
[2019-09-16] MEDS: INSULIN GLARGINE (*BKC) 100 UNITS/ML 10 UNITS SUB-Q (09:37)
[2019-09-16] MEDS: INSULIN ASPART (*BKC) 100 UNITS/ML SUB-Q ×2 (09:39→12:49)
--- NOTE | 2019-09-16 10:06 | P.PNIM_ITS ---
Progress Note: A&P Assessment and Plan (1) Recent cerebrovascular accident: Code(s): Z86.73 - Personal history of transient ischemic attack (TIA), and cerebral infarction without residual deficits Status: Acute Assessment and Plan: * Currently undergoing rehab in [facility]. * Patient does have residual dysphagia and is on a pureed diet with thickened liquids. * She remains on aspirin, clopidogrel, and statin therapy. (2) Insulin dependent diabetes mellitus: Status: Chronic Assessment and Plan: * Hgb A1c 8.6. Continue to monitor with Accu-Cheks and cover with SSI. Continue Lantus and adjust treatment as needed. * Blood sugars in 200s, will increase Lantus. (3) Essential hypertension: Code(s): I10 - Essential (primary) hypertension Status: Chronic Assessment and Plan: * She remains on home Norvasc, Imdur, Lopressor. Increased home Norvasc 5/7 to 5mg, monitor BP. * BPs 168/58 this AM, increase Norvasc to 10mg. (4) Coronary artery disease: Qualifiers: Associated angina: without angina Coronary Disease-Associated Artery/Lesion type: unspecified vessel or lesion type [place] vs. transplanted heart: unspecified whether [place] or transplanted heart Qualified Code(s): I25.10 - Atherosclerotic heart disease of [place] coronary artery without angina pectoris Code(s): I25.10 - Atherosclerotic heart disease of [place] coronary artery without angina pectoris Status: Chronic Assessment and Plan: * Recently had PCI with stent to circumflex at [facility]. Stable, no chest pain. * Continue her home medications as above. (5) Hypothyroidism: Qualifiers: Hypothyroidism type: unspecified Qualified Code(s): E03.9 - Hypothyroidism, unspecified Code(s): E03.9 - Hypothyroidism, unspecified Status: Acute Assessment and Plan: * Continue home levothyroxine. (6) Hyperlipidemia: Qualifiers: Hyperlipidemia type: unspecified Qualified Code(s): E78.5 - Hyp erlipidemia, unspecified Code(s): E78.5 - Hyperlipidemia, unspecified Status: Acute Assessment and Plan: * Maintained on home Statin therapy, she is also on Repatha they are trying to bring from home. Subjective Date/time seen: 09/16/19 0945 Interval history: Ms. Call is a 78yo F in [facility] following a right-sided CVA we are seeing in follow up for management of several medical comorbidities. She is resting comfortably in bed. She is doing well with therapy. She denies any chest pain, shortness of breath, or cough. She is tolerating oral intake without nausea or vomiting. Review of Systems Review of Systems: Narrative: Twelve systems were reviewed with pertinent positives and negatives as per HPI. Exam Narrative: Exam Narrative: General: Female resting comfortably in bed in no acute distress. HEENT: Normocephalic, EOMI, oral mucosa moist. Cardiovascular: Rate and rhythm regular. Respiratory: Lungs clear to auscultation. Respirations are even and non- labored. Abdomen: Soft, non-tender, non-distended, bowel sounds present. Extremities: Peripheral pulses intact. No edema or erythema. Neuro: Alert and oriented to self, place, and time. Speech is clear. Objective Data Vital Signs Vital Signs: Last Vital Signs Temp 98.8 F 09/16/19 06:00
--- NOTE | 2019-09-16 10:06 | PM.IMPN ---
Progress Note: A&P Assessment and Plan (1) Recent cerebrovascular accident: Code(s): Z86.73 - Personal history of transient ischemic attack (TIA), and cerebral infarction without residual deficits Status: Acute Assessment and Plan: Currently undergoing rehab in [facility]. Patient does have residual dysphagia and is on a pureed diet with thickened liquids. She remains on aspirin, clopidogrel, and statin therapy. (2) Insulin dependent diabetes mellitus: Status: Chronic Assessment and Plan: Hgb A1c 8.6. Continue to monitor with Accu-Cheks and cover with SSI. Continue Lantus and adjust treatment as needed. Blood sugars in 200s, will increase Lantus. (3) Essential hypertension: Code(s): I10 - Essential (primary) hypertension Status: Chronic Assessment and Plan: She remains on home Norvasc, Imdur, Lopressor. Increased home Norvasc 5/7 to 5mg, monitor BP. BPs 168/58 this AM, increase Norvasc to 10mg. (4) Coronary artery disease: Qualifiers: Associated angina: without angina Coronary Disease-Associated Artery/Lesion type: unspecified vessel or lesion type [place] vs. transplanted heart: unspecified whether [place] or transplanted heart Qualified Code(s): I25.10 - Atherosclerotic heart disease of [place] coronary artery without angina pectoris Code(s): I25.10 - Atherosclerotic heart disease of [place] coronary artery without angina pectoris Status: Chronic Assessment and Plan: Recently had PCI with stent to circumflex at [facility]. Stable, no chest pain. Continue her home medications as above. (5) Hypothyroidism: Qualifiers: Hypothyroidism type: unspecified Qualified Code(s): E03.9 - Hypothyroidism, unspecified Code(s): E03.9 - Hypothyroidism, unspecified Status: Acute Assessment and Plan: Continue home levothyroxine. (6) Hyperlipidemia: Qualifiers: Hyperlipidemia type: unspecified Qualified Code(s): E78.5 - Hyperlipidemia, unspecified Code(s): E78.5 - Hyperlipidemia, unspecified Status: Acute Assessment and Plan: Maintained on home Statin therapy, she is also on Repatha they are trying to bring from home. Subjective Date/time seen: 09/16/19 0945 Interval history: Ms. Call is a 78yo F in [facility] following a right-sided CVA we are seeing in follow up for management of several medical comorbidities. She is resting comfortably in bed. She is doing well with therapy. She denies any chest pain, shortness of breath, or cough. She is tolerating oral intake without nausea or vomiting. Review of Systems Review of Systems: Narrative: Twelve systems were reviewed with pertinent positives and negatives as per HPI. Exam Narrative: Exam Narrative: General: Female resting comfortably in bed in no acute distress. HEENT: Normocephalic, EOMI, oral mucosa moist. Cardiovascular: Rate and rhythm regular. Respiratory: Lungs clear to auscultation. Respirations are even and non-labored. Abdomen: Soft, non-tender, non-distended, bowel sounds present. Extremities: Peripheral pulses intact. No edema or erythema. Neuro: Alert and oriented to self, place, and time. Speech is clear. Objective Data Vital Signs Vital Signs: Last Vital Signs Temp 98.8 F 09/16/19 06:00 Pulse 72 09/16/19 06:00 Resp 19 09/16/19 06:00 BP 168/58 H 09/16/19 06:00 Pulse Ox 100 09/16/19 06:00 Intake/Output Intake/Output: Intake & Output 09/13/19 09/14/19 09/15/19 09/16/19 23:59 23:59 23:59 23:59 Intake Total 240 600 480 120 Balance 240 600 480 120 Meds/Results Medications: Active Medications Generic Name Dose Route Start Last Admin Trade Name Freq PRN Reason Stop Dose Admin Amlodipine Besylate 5 mg 09/13/19 15
[2019-09-16 11:54] LABS: Glucose Point of Care 287 (65-105)
[2019-09-16 14:00] VITALS: BP 158/54; PULSE 86; RESP 18; TEMP 36.1; O2SAT 96
[2019-09-16 17:06] LABS: Glucose Point of Care 172 (65-105)
[2019-09-16 19:41] VITALS: PULSE 88
[2019-09-16] MEDS: ATORVASTATIN 40 MG TABLET 80 MG PO (19:41)
[2019-09-16 20:58] LABS: Glucose Point of Care 310 (65-105)
[2019-09-16 22:00] VITALS: BP 147/50; PULSE 69; RESP 16; TEMP 37.2; O2SAT 99
[2019-09-17 05:01] LABS: Basophils Absolute Auto 0.1 K/mm3 (0.0-0.1); Eosinophils Absolute Auto 0.1 K/mm3 (0-0.3); Eosinophils Percent Auto 1.3 % (0-4.4); Hematocrit 26.7 % (37.0-47.0); Hemoglobin 8.8 g/dL (12.0-15.0); Immature Granulocyte Absolute 0.01 K/mm3 (0.00-0.031); Immature Granulocyte Percent A 0.1 % (0-0.5); Lymphocytes Absolute Auto 1.19 K/mm3 (0.9-3.2); Lymphocytes Percent Auto 16.8 % (18.3-44.2); Mean Corpuscular Hemoglobin 31.7 pg (26-34); Mean Platelet Volume 10.6 fl (7.4-10.4); Monocytes Absolute Auto 0.9 K/mm3 (0.1-0.6); Monocytes Percent Auto 12.7 % (2.6-8.5); Neutrophils Absolute Auto 4.8 K/mm3 (1.3-6.7); Neutrophils Percent Auto 68.1 % (45.5-73.1); Platelet Count Result 287 k/mm3 (150-375); Red Blood Count 2.78 M/mm3 (4.2-5.4); White Blood Count 7.1 K/mm3 (4.5-10.0)
[2019-09-17 05:28] LABS: Blood Urea Nitrogen 11 mg/dL (7-17); Calcium 8.1 mg/dL (8.4-10.2); Carbon Dioxide 31 mmol/L (22-30); Chloride 100 mmol/L (98-107); Estimated CRCL calculation 41 ml/min; Estimated Glomerular Filt Rate 54; Glucose 247 mg/dL (65-105); Sodium 133 mmol/L (137-145)
[2019-09-17 06:00] VITALS: BP 160/50; PULSE 67; RESP 16; TEMP 36.8; O2SAT 99
[2019-09-17] MEDS: LEVOTHYROXINE SODIUM 150 MCG TABLET PO (06:05)
[2019-09-17 06:12] LABS: Glucose Point of Care 243 (65-105)
--- NOTE | 2019-09-17 10:19 | P.PNIM_ITS ---
Progress Note: A&P Assessment and Plan (1) Recent cerebrovascular accident: Code(s): Z86.73 - Personal history of transient ischemic attack (TIA), and cerebral infarction without residual deficits Status: Acute Assessment and Plan: * Currently undergoing rehab in [facility]. * Patient does have residual dysphagia and is on a pureed diet with thickened liquids. * She remains on aspirin, clopidogrel, and statin therapy. (2) Insulin dependent diabetes mellitus: Status: Chronic Assessment and Plan: * Hgb A1c 8.6. Continue to monitor with Accu-Cheks and cover with SSI. Continue Lantus and adjust treatment as needed. * Lantus was increased to 14 units 09/16. Blood sugars still elevated today - increase Lantus to 20 units. (3) Essential hypertension: Code(s): I10 - Essential (primary) hypertension Status: Chronic Assessment and Plan: * She remains on home Norvasc, Imdur, Lopressor. * BPs still elevated. Home Norvasc increased / to 5mg; BPs still high - increased to 10 mg 09/16. Monitor BP and adjust treatment as needed. (4) Coronary artery disease: Qualifiers: Associated angina: without angina Coronary Disease-Associated Artery/Lesion type: unspecified vessel or lesion type [place] vs. transplanted heart: unspecified whether [place] or transplanted heart Qualified Code(s): I25.10 - Atherosclerotic heart disease of [place] coronary artery without angina pectoris Code(s): I25.10 - Atherosclerotic heart disease of [place] coronary artery without angina pectoris Status: Chronic Assessment and Plan: * Recently had PCI with stent to circumflex at [facility]. Stable, no chest pain. * Continue her home medications as above. (5) Hypothyroidism: Qualifiers: Hypothyroidism type: unspecified Qualified Code(s): E03.9 - Hypothyroidism, unspecified Code(s): E03.9 - Hypothyroidism, unspecified Status: Acute Assessment and Plan: * Continue home levothyroxine. (6) Hyperlipidemia: Qualifiers: Hyperlipidemia type: unspecified Qualified Code(s): E78.5 - Hyperlipidemia, unspecified Code(s): E78.5 - Hyperlipidemia, unspecified Status: Acute Assessment and Plan: * Maintained on home Statin therapy, she is also on Repatha at home. Subjective Date/time seen: 09/17/19 0945 Interval history: Ms. Call is a 78yo F in [facility] following a right-sided CVA we are seeing in follow up for management of several medical comorbidities. She is sitting up in bedside chair. She is doing well today but feels tired. She denies any chest pain, shortness of breath, or cough. She is tolerating oral intake without nausea or vomiting. Review of Systems Review of Systems: Narrative: Twelve systems were reviewed with pertinent positives and negatives as per HPI. Exam Narrative: Exam Narrative: General: Female resting comfortably in bed in no acute distress. HEENT: Normocephalic, EOMI, oral mucosa moist. Cardiovascular: Rate and rhythm regular. Respiratory: Lungs clear to auscultation. Respirations are even and non- labored. Abdomen: Soft, non-tender, non-distended, bowel sounds present. Extremities: Peripheral pulses intact. No edema or erythema. Neuro: Alert and oriented to self, place, and time. Speech is clear. Objective Data Vital Signs Vital Signs:
--- NOTE | 2019-09-17 10:19 | PM.IMPN ---
Progress Note: A&P Assessment and Plan (1) Recent cerebrovascular accident: Code(s): Z86.73 - Personal history of transient ischemic attack (TIA), and cerebral infarction without residual deficits Status: Acute Assessment and Plan: Currently undergoing rehab in [facility]. Patient does have residual dysphagia and is on a pureed diet with thickened liquids. She remains on aspirin, clopidogrel, and statin therapy. (2) Insulin dependent diabetes mellitus: Status: Chronic Assessment and Plan: Hgb A1c 8.6. Continue to monitor with Accu-Cheks and cover with SSI. Continue Lantus and adjust treatment as needed. Lantus was increased to 14 units 09/16. Blood sugars still elevated today - increase Lantus to 20 units. (3) Essential hypertension: Code(s): I10 - Essential (primary) hypertension Status: Chronic Assessment and Plan: She remains on home Norvasc, Imdur, Lopressor. BPs still elevated. Home Norvasc increased 5/ to 5mg; BPs still high - increased to 10 mg 09/16. Monitor BP and adjust treatment as needed. (4) Coronary artery disease: Qualifiers: Associated angina: without angina Coronary Disease-Associated Artery/Lesion type: unspecified vessel or lesion type [place] vs. transplanted heart: unspecified whether [place] or transplanted heart Qualified Code(s): I25.10 - Atherosclerotic heart disease of [place] coronary artery without angina pectoris Code(s): I25.10 - Atherosclerotic heart disease of [place] coronary artery without angina pectoris Status: Chronic Assessment and Plan: Recently had PCI with stent to circumflex at [facility]. Stable, no chest pain. Continue her home medications as above. (5) Hypothyroidism: Qualifiers: Hypothyroidism type: unspecified Qualified Code(s): E03.9 - Hypothyroidism, unspecified Code(s): E03.9 - Hypothyroidism, unspecified Status: Acute Assessment and Plan: Continue home levothyroxine. (6) Hyperlipidemia: Qualifiers: Hyperlipidemia type: unspecified Qualified Code(s): E78.5 - Hyperlipidemia, unspecified Code(s): E78.5 - Hyperlipidemia, unspecified Status: Acute Assessment and Plan: Maintained on home Statin therapy, she is also on Repatha at home. Subjective Date/time seen: 09/17/19 0945 Interval history: Ms. Call is a 78yo F in [facility] following a right-sided CVA we are seeing in follow up for management of several medical comorbidities. She is sitting up in bedside chair. She is doing well today but feels tired. She denies any chest pain, shortness of breath, or cough. She is tolerating oral intake without nausea or vomiting. Review of Systems Review of Systems: Narrative: Twelve systems were reviewed with pertinent positives and negatives as per HPI. Exam Narrative: Exam Narrative: General: Female resting comfortably in bed in no acute distress. HEENT: Normocephalic, EOMI, oral mucosa moist. Cardiovascular: Rate and rhythm regular. Respiratory: Lungs clear to auscultation. Respirations are even and non-labored. Abdomen: Soft, non-tender, non-distended, bowel sounds present. Extremities: Peripheral pulses intact. No edema or erythema. Neuro: Alert and oriented to self, place, and time. Speech is clear. Objective Data Vital Signs Vital Signs: Last Vital Signs Temp 98.2 F 09/17/19 06:00 Pulse 67 09/17/19 06:00 Resp 16 09/17/19 06:00 BP 160/50 H 09/17/19 06:00 Pulse Ox 99 09/17/19 06:00 Intake/Output Intake/Output: Intake & Output 09/14/19 09/15/19 09/16/19 09/17/19 23:59 23:59 23:59 23:59 Intake Total 600 480 600 480 Balance 600 480 600 480 Meds/Results Medications: Active Medications Generic Name Dose Route Start Last Adm
[2019-09-17] MEDS: INSULIN ASPART (*BKC) 100 UNITS/ML SUB-Q ×3 (10:31→17:27)
[2019-09-17] MEDS: INSULIN GLARGINE (*BKC) 100 UNITS/ML 14 UNITS SUB-Q (10:31)
[2019-09-17] MEDS: AMLODIPINE BESYLATE 5 MG TABLET 10 MG PO (10:32)
[2019-09-17] MEDS: CLOPIDOGREL BISULFATE 75 MG TABLET PO (10:32)
[2019-09-17] MEDS: PAROXETINE 10 MG TABLET PO (10:32)
[2019-09-17] MEDS: ASPIRIN 81 MG CHEWABLE TABLET PO (10:32)
[2019-09-17 10:33] VITALS: PULSE 66
[2019-09-17] MEDS: ISOSORBIDE MONONITRATE 60 MG TAB.ER.24H PO (10:33)
[2019-09-17] MEDS: METOPROLOL TARTRATE 25 MG TABLET PO ×2 (10:33→21:01)
[2019-09-17 12:00] VITALS: BMI 26.2
[2019-09-17 12:00] LABS: Glucose Point of Care 326 (65-105)
[2019-09-17 14:00] VITALS: BP 140/57; PULSE 66; RESP 18; TEMP 36.7; O2SAT 100
[2019-09-17 14:47] VITALS: PULSE 68; RESP 18; O2SAT 100
[2019-09-17 16:52] LABS: Glucose Point of Care 290 (65-105)
--- NOTE | 2019-09-17 17:59 | WPDNEURORHBP ---
Subjective Date/time seen: 09/17/19 17:59 left hemiparesis with left visual field cut and coronary artey disease Review of Systems Review of Systems: All systems reviewed & are unremarkable except as noted in HPI and below Functional Status Ambulation Ability Ability to Ambulate 10 Feet: Moderate Assistance X 1 Ability to Ambulate 50 Feet With 2 Turns: Moderate Assistance X 1 Ambulation Assistive Devices: Walker, Wheeled Transfers Ability Ability to Transfer In/Out of Chair: Moderate Assistance X 1 Exam Const: General: cooperative, comfortable and no acute distress HENMT: Head: normal to inspection Ears: hearing grossly normal bilaterally General nose exam: No nasal discharge present Mouth: Yes Normal oral and palatal mucosa present Eyes: General: appearance normal, both eyes and all related structures Resp: Auscultation: clear to auscultation bilaterally GI: Auscultation: normal bowel sounds Skin: General skin exam: no rashes or lesions noted Neuro: Motor exam (neuro): Abnormal motor strength present (left hemiparesis improving) Psych: Appearance: grossly normal Objective Data Vital Signs Vital Signs: Vital Signs - 24 hr 09/16/19 19:41 09/16/19 22:00 09/17/19 06:00 Temperature 37.2 C 36.8 C Pulse Rate 88 69 67 Respiratory Rate 16 16 Blood Pressure 147/50 H 160/50 H Pulse Oximetry 99 99 09/17/19 10:33 09/17/19 14:00 09/17/19 14:47 Temperature 36.7 C Pulse Rate 66 66 68 Respiratory Rate 18 18 Blood Pressure 140/57 L Pulse Oximetry 100 100 Intake/Output Intake/Output: Intake & Output 09/14/19 09/15/19 09/16/19 09/17/19 23:59 23:59 23:59 23:59 Intake Total 600 480 600 840 Balance 600 480 600 840 Meds/Results Medications: Active Medications Generic Name Dose Route Start Last Admin Trade Name Freq PRN Reason Stop Dose Admin Amlodipine Besylate 10 mg 09/17/19 09:00 09/17/19 10:32 Norvasc PO 10 mg DAILY YAMILE Administration Aspirin 81 mg 09/12/19 09:00 09/17/19 10:32 Aspirin Chewable PO 81 mg DAILY YAMILE Administration Atorvastatin Calcium 80 mg 09/11/19 21:00 09/16/19 19:41 Lipitor PO 80 mg HS YAMILE Administration Clopidogrel Bisulfate 75 mg 09/12/19 09:00 09/17/19 10:32 Plavix PO 75 mg DAILY YAMILE Administration Dextrose 12.5 gm 09/11/19 16:27 Dextrose 50% Syringe IV PUSH PRN PRN Hypoglycemia Protocol Dextrose 12.5 gm 09/11/19 17:42 Dextrose 50% Syringe IV PUSH PRN PRN Hypoglycemia Protocol Glucagon 1 mg 09/11/19 16:27 Glucagon For Inj IM PRN PRN Hypoglycemia Protocol Glucagon 1 mg 09/11/19 17:42 Glucagon For Inj IM PRN PRN Hypoglycemia Protocol Glucose 15 gm 09/11/19 16:27 Glutose 15 PO PRN PRN Hypoglycemia Protocol Glucose 15 gm 09/11/19 17:42 Glutose 15 PO PRN PRN Hypoglycemia Protocol Dextrose 1,000 mls @ 100 mls/hr 09/11/19 16:27 Dextrose 5% 1,000 Ml IVPB PRN PRN Hypoglycemia Protocol Dextrose 1,000 mls @ 100 mls/hr 09/11/19 17:42 Dextrose 5% 1,000 Ml IVPB PRN PRN Hypoglycemia Protocol Insulin Aspart 2 - 5 units 09/11/19 17:00 09/17/19 17:27 Novolog SUB-Q 3 units TIDWM YAMILE Administration Protocol Insulin Glargine 20 units 09/18/19 09:00 Lantus SUB-Q DAILY YAMILE Isosorbide Mononitrate 60 mg 09/12/19 09:00 09/17/19 10:33 Imdur PO 60 mg DAILY YAMILE Administration Levothyroxine Sodium 150 mcg 09/12/19 06:30 09/17/19 06:05 Synthroid PO 150 mcg 0630 YAMILE Administration Metoprolol Tartrate 25 mg 09/11/19 21:00 09/17/19 10:33 Lopressor PO 25 mg Q12HR YAMILE Administration Paroxetine HCl 10 mg 09/12/19 09:00 09/17/19 10:32 Paxil PO 10 mg QAM YAMILE Administration Labs Labs: Laboratory Results - last 24 hr 09/16/19 09/17/19 09/17/19 19:45 04:39 04:40 WBC 7.1 RBC 2.78 L
[2019-09-17 21:01] VITALS: PULSE 72
[2019-09-17] MEDS: ATORVASTATIN 40 MG TABLET 80 MG PO (21:01)
[2019-09-17 21:34] LABS: Glucose Point of Care 265 (65-105)
[2019-09-17 22:00] VITALS: BP 135/48; PULSE 72; RESP 18; TEMP 37.7; O2SAT 99
[2019-09-18] VITALS (7 sets, daily range): BP systolic 135–144; BP diastolic 48–71; PULSE 68–74; RESP 16–18; TEMP 36.8–37.3; O2SAT 98–100
[2019-09-18] MEDS: LEVOTHYROXINE SODIUM 150 MCG TABLET PO (06:58)
[2019-09-18] MEDS: INSULIN ASPART (*BKC) 100 UNITS/ML SUB-Q ×3 (07:17→17:42)
[2019-09-18 08:08] LABS: Glucose Point of Care 250 (65-105)
[2019-09-18] MEDS: ASPIRIN 81 MG CHEWABLE TABLET PO (09:47)
[2019-09-18] MEDS: CLOPIDOGREL BISULFATE 75 MG TABLET PO (09:47)
[2019-09-18] MEDS: AMLODIPINE BESYLATE 5 MG TABLET 10 MG PO (09:47)
[2019-09-18] MEDS: METOPROLOL TARTRATE 25 MG TABLET PO ×2 (09:48→20:30)
[2019-09-18] MEDS: PAROXETINE 10 MG TABLET PO (09:48)
[2019-09-18] MEDS: ISOSORBIDE MONONITRATE 60 MG TAB.ER.24H PO (09:48)
[2019-09-18] MEDS: INSULIN GLARGINE (*BKC) 100 UNITS/ML 20 UNITS SUB-Q (09:51)
--- NOTE | 2019-09-18 10:53 | PCDIET ---
Nutrition Follow-Up Complete: Nutrition Diagnosis: Suboptimal oral intake related to decreased appetite as evidenced by intakes 30-50%. Nutrition Goal: Patient to consume 50% of meals/supplements or greater. Goal met. Average intake since 09/14/19 has been 55% of meals on diabetic, pureed diet with mildly thick liquids. Patient had not been receiving Thrive Ice Cream (no sugar added); was continuing to receive Glucerna and not accepting it. Clarified MD order with dietary department. Patient to have MBS today. Last recorded weight is 76 kg. Recommend obtaining new weight. Bowel Motility: Last BM on 09/16/19. Labs Reviewed: Glu (250) - Lantus being increased. Meds Noted: Novolog, Lantus Additional Notes: Right elbow and left leg with scabs; no other skin issues reported. Will continue to monitor with same goals. Nutrition Monitoring and Evaluation: Follow up in 5 days.
--- NOTE | 2019-09-18 11:42 | PCSTNOTE ---
Please refer to the Modified Barium Swallow Evaluation in the EMR.
[2019-09-18 12:14] LABS: Glucose Point of Care 409 (65-105)
--- NOTE | 2019-09-18 12:23 | PC.NURSE ---
Talked with Dr. Seymour and advised him of accucheck being 409 and he ordered 5 units Novolog now. will continue to monitor patient.
[2019-09-18 13:31] LABS: Glucose Point of Care 359 (65-105)
--- NOTE | 2019-09-18 14:10 | PCCDE ---
diabetes education: meds: Lantus increased today to 20 units and continues on low dose Novolog correction scale at meals. BG today was 250 at breakfast and 409 at lunch. Called endo office (Dr Angeles) and left message requesting her Humalog dosing at home. Met with pt; pt sts I am non compliant . Questioned pt about what she means and she states that sometimes she eats [employer] donut when she visits her friend. Encouraged pt to not be so hard on herself and that it is what she does/eats most of the time that matters the most. Pt sts she has had DM for 40 years and pt c/o flucuating BG. MONITORING: pt SMBG before meals and bedtime and tracks in logbook. Pt sts BG range 40-600mg/dl. Pt was able to voice some causes of hyperglycemia and hypoglycemia. MEDICATIONS: pt sts to take Toujeo (long acting insulin) every day without problems. When questioning pt is she is able to identify what causes her hypoglycemia she sts I think I go overboard with my insulin. It appears that sometimes pt will check BG after eating and dose Humalog on that BG. Advised to only dose on pre-meal BG and take insulin before she eats. Pt v/u. EXERCISE: Pt also sts she likes to do a lot of yard work and recognizes that this can be a factor in hypoglycemia. Pt usually treats with food. Recommended to carry glucose tabs outside with her and if she plans to be outside for more than 15 minutes she should test BG before going outside. Pt sts she does have glucose tabs at home too. Pt was very drowsy and falling asleep. Provided Diabetes Management book with educator contact info. Pt sees endo every 3 mos.
--- NOTE | 2019-09-18 15:57 | PM.IMPN ---
Progress Note: A&P Assessment and Plan (1) Recent cerebrovascular accident: Code(s): Z86.73 - Personal history of transient ischemic attack (TIA), and cerebral infarction without residual deficits Status: Acute Assessment and Plan: ----was at [facility] and now currently undergoing rehab in [facility]. Patient does have residual dysphagia and is on a pureed diet with thickened liquids. Continue aspirin, clopidogrel, and statin therapy. (2) Insulin dependent diabetes mellitus: Status: Chronic Assessment and Plan: -----patient has had diabetes for 40 years and says that she usually takes 7-10 units of Humalog with her meals as well as 36 units of long-acting insulin. For whatever reason, [facility] did not discharge her on any sliding scale insulin so this was unknown until today. We have been giving her 2-5 units of insulin which is under dosing her. At this time I will transition her to high sliding scale and continue her Lantus but will be increased. Metformin will also be started and she is told to let us know if she starts having any upset stomach or diarrhea. Hgb A1c 8.6. Continue to monitor with Accu-Cheks and cover with SSI. I have asked the nursing staff to call the medicine team for any glucose >400. (3) Essential hypertension: Code(s): I10 - Essential (primary) hypertension Status: Chronic Assessment and Plan: ----Last bp 135/66. Continue home Norvasc, Imdur, Lopressor. (4) Coronary artery disease: Qualifiers: Coronary Disease-Associated Artery/Lesion type: unspecified vessel or lesion type [place] vs. transplanted heart: unspecified whether [place] or transplanted heart Associated angina: without angina Qualified Code(s): I25.10 - Atherosclerotic heart disease of [place] coronary artery without angina pectoris Code(s): I25.10 - Atherosclerotic heart disease of [place] coronary artery without angina pectoris Status: Chronic Assessment and Plan: ------Recently had PCI with stent to circumflex at [facility]. Stable, no chest pain. Continue her home medications as above. (5) Hypothyroidism: Qualifiers: Hypothyroidism type: unspecified Qualified Code(s): E03.9 - Hypothyroidism, unspecified Code(s): E03.9 - Hypothyroidism, unspecified Status: Acute Assessment and Plan: -----Continue home levothyroxine. (6) Hyperlipidemia: Qualifiers: Hyperlipidemia type: unspecified Qualified Code(s): E78.5 - Hyperlipidemia, unspecified Code(s): E78.5 - Hyperlipidemia, unspecified Status: Acute Assessment and Plan: ----Maintained on home Statin therapy, she is also on Repatha at home. Time Spent With Patient Time with patient: 25 - 35 minutes Subjective Date/time seen: 09/18/19 15:57 Interval history: Pt is a 78-year-old female consulted for diabetes management. Patient was seen today and has no complaints. She said she did well with therapy and is not in any pain. We reviewed her typical diabetes regimen and at home, before her stroke, she said she was taking Humalog with a sliding scale. She said she averaged about 7-10 units per meal. She also took Toujeo 36 units every morning. She has never been on metformin and does not know why. Today the patient denies chest pain, shortness of breath, fevers, chills, nausea, vomiting, diarrhea or constipation. Review of Systems Review of Systems: All systems reviewed & are unremarkable except as noted in HPI and below Exam Narrative: Exam Narrative: General: Well developed well nourished patient resting comfortably in bed in no acute distress HEENT: normocephalic Neck: supple Neuro: Alert and oriented x4. 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 Unable to plantar flex on the left. Right-sided strength 5/5. CV:RRR Resp:CTA Abd: Soft, non distended. No pain to palpation. Positive bowel sounds Extremities: No swelling, eryt
[2019-09-18 15:58] LABS: Glucose Point of Care 241 (65-105)
--- NOTE | 2019-09-18 16:28 | WPDNEURORHBP ---
Subjective Date/time seen: 09/18/19 16:28 Interval history: this 78-year-old woman is here with the right hemispheric stroke with rather dense left-sided visual field defect left-sided neglect and moderately severe left hemiparesis she was relatively tired this morning but better today not engage much therapy with remains awake alert without any headache nausea vomiting chest pain shortness of breath fever chills or sore throat Review of Systems Review of Systems: All systems reviewed & are unremarkable except as noted in HPI and below Functional Status Ambulation Ability Ability to Ambulate 10 Feet: Moderate Assistance X 1 Ability to Ambulate 50 Feet With 2 Turns: Moderate Assistance X 1 Ambulation Assistive Devices: Walker, Wheeled Transfers Ability Ability to Transfer In/Out of Chair: Maximum Assistance X 1 Exam Const: General: comfortable and no acute distress HENMT: General nose exam: Normal nares present Mouth: Yes moist mucous membranes Eyes: General: appearance normal, both eyes and all related structures Neck: Neck: supple and no JVD Resp: Effort & Inspection: normal respiratory effort Auscultation: clear to auscultation bilaterally Cardio: Rate: regular rate Rhythm: regular rhythm GI: GI Palp: Yes Soft to palpation Auscultation: normal bowel sounds Skin: General skin exam: normal color and no rashes or lesions noted Neuro: Other: she is awake and alert well oriented time place and person with fixed neurological deficit which is relatively weaker today however I believe it is related to her fatigue and tiredness rather than any new evidence of stroke but we will observe Extrem: General: normal to inspection Psych: Mental Status: mental status grossly normal Objective Data Vital Signs Vital Signs: Vital Signs - 24 hr 09/17/19 21:01 09/17/19 22:00 09/18/19 06:00 Temperature 37.7 C H 37.1 C Pulse Rate 72 72 71 Respiratory Rate 18 16 Blood Pressure 135/48 L 142/48 H Pulse Oximetry 99 100 09/18/19 08:00 09/18/19 09:48 09/18/19 14:00 Temperature 37.3 C Pulse Rate 72 72 68 Respiratory Rate 16 16 Blood Pressure 135/66 Pulse Oximetry 100 100 Intake/Output Intake/Output: Intake & Output 09/15/19 09/16/19 09/17/19 09/18/19 23:59 23:59 23:59 23:59 Intake Total 496 563 5469 720 Balance 540 213 2775 720 Meds/Results Medications: Active Medications Generic Name Dose Route Start Last Admin Trade Name Freq PRN Reason Stop Dose Admin Amlodipine Besylate 10 mg 09/17/19 09:00 09/18/19 09:47 Norvasc PO 10 mg DAILY YAMILE Administration Aspirin 81 mg 09/12/19 09:00 09/18/19 09:47 Aspirin Chewable PO 81 mg DAILY YAMILE Administration Atorvastatin Calcium 80 mg 09/11/19 21:00 09/17/19 21:01 Lipitor PO 80 mg HS YAMILE Administration Clopidogrel Bisulfate 75 mg 09/12/19 09:00 09/18/19 09:47 Plavix PO 75 mg DAILY YAMILE Administration Dextrose 12.5 gm 09/11/19 16:27 Dextrose 50% Syringe IV PUSH PRN PRN Hypoglycemia Protocol Glucagon 1 mg 09/11/19 16:27 Glucagon For Inj IM PRN PRN Hypoglycemia Protocol Glucose 15 gm 09/11/19 16:27 Glutose 15 PO PRN PRN Hypoglycemia Protocol Dextrose 1,000 mls @ 100 mls/hr 09/11/19 16:27 Dextrose 5% 1,000 Ml IVPB PRN PRN Hypoglycemia Protocol Insulin Aspart 4 - 8 units 09/18/19 17:00 Novolog SUB-Q TIDWM [facility] Protocol Insulin Glargine 20 units 09/18/19 09:00 09/18/19 09:51 Lantus SUB-Q 20 units DAILY YAMILE Administration Isosorbide Mononitrate 60 mg 09/12/19 09:00 09/18/19 09:48 Imdur PO 60 mg DAILY YAMILE Administration Levothyroxine Sodium 150 mcg 09/12/19 06:30 09/18/19 06:58 Synthroid PO 150 mcg 0630 YAMILE Administration Metformin HCl 500 mg 09/18/19 17:00 Glucophage PO BIDWM [facility] Metoprolol Tartrate 25 mg 09/11/19 21:00 09/18/19 09:48 Lopressor PO 25
[2019-09-18 17:01] LABS: Glucose Point of Care 218 (65-105)
[2019-09-18] MEDS: metFORMIN HCL 500 MG TABLET PO (17:42)
[2019-09-18] MEDS: ATORVASTATIN 40 MG TABLET 80 MG PO (20:30)
[2019-09-18 20:43] LABS: Glucose Point of Care 256 (65-105)
[2019-09-19] VITALS (7 sets, daily range): BP systolic 126–148; BP diastolic 48–64; PULSE 70–87; RESP 17–20; TEMP 36.6–37.6; O2SAT 98–100
[2019-09-19 04:57] LABS: Basophils Absolute Auto 0.1 K/mm3 (0.0-0.1); Eosinophils Absolute Auto 0.1 K/mm3 (0-0.3); Eosinophils Percent Auto 1.6 % (0-4.4); Hemoglobin 9.7 g/dL (12.0-15.0); Immature Granulocyte Absolute 0.02 K/mm3 (0.00-0.031); Immature Granulocyte Percent A 0.3 % (0-0.5); Lymphocytes Absolute Auto 1.38 K/mm3 (0.9-3.2); Lymphocytes Percent Auto 19.7 % (18.3-44.2); Mean Corpuscular HGB Conc 32.3 g/dl (32-36); Mean Corpuscular Hemoglobin 31.7 pg (26-34); Monocytes Absolute Auto 0.7 K/mm3 (0.1-0.6); Monocytes Percent Auto 10.1 % (2.6-8.5); Neutrophils Absolute Auto 4.7 K/mm3 (1.3-6.7); Neutrophils Percent Auto 67.3 % (45.5-73.1); Platelet Count Result 257 k/mm3 (150-375); Red Blood Count 3.06 M/mm3 (4.2-5.4); Red Cell Distribution Width 13.8 % (11.5-14.5)
[2019-09-19 05:14] LABS: Blood Urea Nitrogen 14 mg/dL (7-17); Calcium 8.1 mg/dL (8.4-10.2); Carbon Dioxide 31 mmol/L (22-30); Chloride 102 mmol/L (98-107); Estimated CRCL calculation 41 ml/min; Estimated Glomerular Filt Rate 54; Glucose 124 mg/dL (65-105); Potassium 4.1 mmol/L (3.4-5.0); Sodium 135 mmol/L (137-145)
[2019-09-19] MEDS: LEVOTHYROXINE SODIUM 150 MCG TABLET PO (06:06)
[2019-09-19 06:59] LABS: Glucose Point of Care 137 (65-105)
[2019-09-19] MEDS: CLOPIDOGREL BISULFATE 75 MG TABLET PO (09:00)
[2019-09-19] MEDS: AMLODIPINE BESYLATE 5 MG TABLET 10 MG PO (09:00)
[2019-09-19] MEDS: ASPIRIN 81 MG CHEWABLE TABLET PO (09:00)
[2019-09-19] MEDS: PAROXETINE 10 MG TABLET PO (09:00)
[2019-09-19] MEDS: METOPROLOL TARTRATE 25 MG TABLET PO ×2 (09:01→22:05)
[2019-09-19] MEDS: metFORMIN HCL 500 MG TABLET PO ×2 (09:01→17:02)
[2019-09-19] MEDS: ISOSORBIDE MONONITRATE 60 MG TAB.ER.24H PO (09:01)
[2019-09-19] MEDS: INSULIN GLARGINE (*BKC) 100 UNITS/ML 20 UNITS SUB-Q (09:02)
--- NOTE | 2019-09-19 10:16 | ECG_ITS ---
Measurements Intervals [place] Rate: 72 P: 47 TX: 149 QRS: -14 QRSD: 132 T: 120 QT: 430 QTc: 474 Interpretive Statements SINUS RHYTHM LEFT BUNDLE BRANCH BLOCK BASELINE ARTIFACT- I, II, III, AVR, AVL, AVF ABNORMAL ECG Electronically Signed On 09-19-2019 11:42:23 CDT by Flip Earl D.O.
--- NOTE | 2019-09-19 10:38 | PCCDE ---
Angelita from Dr Angeles's office (endo) left a message this am with pt's home insulin dosin units [place] daily, Humalog at meals: 5 units for low carb meal, 7 units for medium carb meal and 10 units for high carb meal plus correction scale of 2 units for BG >150, 3 units for BG >200, 5 units for BG > 300 Pt is currently receiving 20 units of Lantus daily (dose increased on 09/17) and moderate correction scale (similar to home correction). BG was 137mg/dl this am but noted BG up to 409mg/dl yesterday at lunch. May wish to add 5 units Novolog at meals if trend persists.
[2019-09-19 10:41] LABS: Basophils Absolute Auto 0.1 K/mm3 (0.0-0.1); Eosinophils Absolute Auto 0.1 K/mm3 (0-0.3); Eosinophils Percent Auto 0.9 % (0-4.4); Immature Granulocyte Absolute 0.02 K/mm3 (0.00-0.031); Immature Granulocyte Percent A 0.3 % (0-0.5); Lymphocytes Absolute Auto 1.01 K/mm3 (0.9-3.2); Lymphocytes Percent Auto 12.9 % (18.3-44.2); Mean Corpuscular HGB Conc 32.3 g/dl (32-36); Mean Corpuscular Hemoglobin 31.7 pg (26-34); Mean Corpuscular Volume 98.4 fl (80-100); Mean Platelet Volume 10.8 fl (7.4-10.4); Monocytes Absolute Auto 0.7 K/mm3 (0.1-0.6); Monocytes Percent Auto 8.6 % (2.6-8.5); Neutrophils Percent Auto 76.3 % (45.5-73.1); Platelet Count Result 282 k/mm3 (150-375); Red Blood Count 3.15 M/mm3 (4.2-5.4); Red Cell Distribution Width 13.9 % (11.5-14.5); White Blood Count 7.8 K/mm3 (4.5-10.0)
--- NOTE | 2019-09-19 11:00 | PC.NURSE ---
Dr Parson notified of change in patient status - patient requiring increased assistance with bathing and ambulating this morning. Also noted to be leaning toward left side more than observed in past. Patient also had difficulty with am meds- normally takes meds with bites of applesauce and swallows without difficulty but this morning pills rolled out of left side of patient's mouth. Patient alert and oriented x 3. Left sided weakness persists with left field visual deficit same. Dr Parson notified by Radha enrique. Son notified.
[2019-09-19 11:36] LABS: Glucose Point of Care 246 (65-105)
--- NOTE | 2019-09-19 11:37 | PC.NURSE ---
Dr Parson here to examine patient and discuss ongoing plan for care with son, Geovanni. Aurea Alvarez notified of patient status including lab results, EKG, and pending MRI.
--- NOTE | 2019-09-19 12:07 | PM.IMPN ---
Progress Note: A&P Assessment and Plan (1) Recent cerebrovascular accident: Code(s): Z86.73 - Personal history of transient ischemic attack (TIA), and cerebral infarction without residual deficits Status: Acute Assessment and Plan: ----was at [facility] and now currently undergoing rehab in [facility]. Concern by [facility] staff for worsening symptoms. Pt is going to get an MRI today. She does have residual dysphagia and is on a pureed diet with thickened liquids. Continue aspirin, clopidogrel, and statin therapy. Continue PT/OT/ST. (2) Insulin dependent diabetes mellitus: Status: Chronic Assessment and Plan: -----patient has had diabetes for 40 years and says that she usually takes 7-10 units of Humalog with her meals as well as 36 units of long-acting insulin. For whatever reason, [facility] did not discharge her on any sliding scale insulin. We have been giving her 2-5 units of insulin which is under dosing her. Continue mod-dose sliding scale and continue lantus at a reduced dose at this time. Metformin was also started. Will see how this regimen does and adjust further as needed. Her glucose has been more controlled toay. Educated the pt on side affects of metformin such as abdominal pain or diarrhea and to let us know if this occurs. Hgb A1c 8.6. Continue to monitor with Accu-Cheks and cover with SSI. I have asked the nursing staff to call the medicine team for any glucose >400. (3) Essential hypertension: Code(s): I10 - Essential (primary) hypertension Status: Chronic Assessment and Plan: ----Last bp 148/56. Continue home Norvasc, Imdur, Lopressor. (4) Coronary artery disease: Qualifiers: Coronary Disease-Associated Artery/Lesion type: unspecified vessel or lesion type [place] vs. transplanted heart: unspecified whether [place] or transplanted heart Associated angina: without angina Qualified Code(s): I25.10 - Atherosclerotic heart disease of [place] coronary artery without angina pectoris Code(s): I25.10 - Atherosclerotic heart disease of [place] coronary artery without angina pectoris Status: Chronic Assessment and Plan: ------Recently had PCI with stent to circumflex at [facility]. Stable, no chest pain. EKG NSR w/ LBBB. Since pt was just stented and has no CP or cardiac symptoms at this time, do not suspect ACS. LBBB chronic? Perceptive content not allowing me to log in. Will see if I can get an EKG from [facility]. Continue her home medications as above. (5) Hypothyroidism: Qualifiers: Hypothyroidism type: unspecified Qualified Code(s): E03.9 - Hypothyroidism, unspecified Code(s): E03.9 - Hypothyroidism, unspecified Status: Acute Assessment and Plan: -----Continue home levothyroxine. (6) Hyperlipidemia: Qualifiers: Hyperlipidemia type: unspecified Qualified Code(s): E78.5 - Hyperlipidemia, unspecified Code(s): E78.5 - Hyperlipidemia, unspecified Status: Acute Assessment and Plan: ----Maintained on home Statin therapy, she is also on Repatha at home. Subjective Date/time seen: 09/19/19 12:07 Interval history: Pt is a 78-year-old female consulted for diabetes management. Patient was seen today and has no complaints. She says she thought she did well with physical therapy but she wasn't able to do things today like she has been in during his stay. The nurse, at bedside, states that she has been leaning to the left and was having more trouble taking her pills this morning. Pt denies CP, fevers, chills, dysuria, abdominal pain, nausea or vomiting. Exam Narrative: Exam Narrative: General: Well developed well nourished patient resting comfortably in bed in no acute distress HEENT: normocephalic Neck: supple Neuro: Alert and oriented to herself, place, and time but couldn't think of the presidents name. Very weak research and evaluation analyst strength on the left. Unable to plantar flex
[2019-09-19] MEDS: INSULIN ASPART (*BKC) 100 UNITS/ML SUB-Q (12:45)
[2019-09-19] MEDS: DEXAMETHASONE 2 MG TABLET PO (13:49)
[2019-09-19] MEDS: DEXAMETHASONE 4 MG TABLET 8 MG PO (13:49)
[2019-09-19] MEDS: PANTOPRAZOLE 40 MG TABLET PO ×2 (13:49→22:06)
[2019-09-19 14:44] LABS: Add Urine Microscopic? YES; Appearance Urine Clear (Clear); Bilirubin Urine Negative (Negative); Blood Urine Negative (Negative); Color Urine Yellow (Yellow); Glucose Urine UA 3+ mg/dL (Negative); Ketones Urine Negative (Negative); Leukocyte Esterase Ur Negative LEU/UL (Negative); Mucus Urine Rare /lpf; Nitrate Urine Negative (Negative); Protein Urine 3+ mg/dL (Negative); RBC Urine 0-2 /hpf (0-2); Specific Grav Ur 1.013 (1.001-1.035); Squamous Epithelial Cell Urine Rare /hpf (Few); Urobilinogen Urine Negative mg/dL (<2.0); WBC Urine 0-3 /hpf
--- NOTE | 2019-09-19 14:57 | PC.NURSE ---
call placed to Dr Haim Pond's office at [phone] to obtain fax number. Faxed a copy of the MRI report per Dr Parson's request to Dr Pond's office at fax number [phone]. pt is currently receiving neurochecks q 6 hours and are wnl at this time. plavix is currently on hold as well at this time. gave patient one time dose of decadron 10 mg and protonix as well. will conitnue to monitor.
--- NOTE | 2019-09-19 15:47 | PC.NURSE ---
patient signed a release of information in order to obtain EKG records from previous hospital. fax was sent to [facility] at [phone] to fax number [phone]. will continue to monitor.
[2019-09-19 16:43] LABS: Glucose Point of Care 110 (65-105)
[2019-09-19] MEDS: DEXAMETHASONE 4 MG TABLET PO (17:27)
[2019-09-19] MEDS: ATORVASTATIN 40 MG TABLET 80 MG PO (22:05)
[2019-09-19 22:24] LABS: Glucose Point of Care 201 (65-105)
[2019-09-20] VITALS (8 sets, daily range): BP systolic 117–129; BP diastolic 44–61; PULSE 67–76; RESP 18–20; TEMP 36.9–37.3; O2SAT 97–100
[2019-09-20] MEDS: DEXAMETHASONE 4 MG TABLET PO ×4 (02:31→17:00)
[2019-09-20 04:45] LABS: Glucose Point of Care 235 (65-105)
[2019-09-20 06:55] LABS: Glucose Point of Care 240 (65-105)
[2019-09-20] MEDS: LEVOTHYROXINE SODIUM 150 MCG TABLET PO (06:59)
[2019-09-20] MEDS: INSULIN ASPART (*BKC) 100 UNITS/ML SUB-Q ×3 (07:17→16:54)
[2019-09-20] MEDS: INSULIN GLARGINE (*BKC) 100 UNITS/ML 20 UNITS SUB-Q (09:19)
[2019-09-20] MEDS: metFORMIN HCL 500 MG TABLET PO ×2 (09:21→16:56)
[2019-09-20] MEDS: ISOSORBIDE MONONITRATE 60 MG TAB.ER.24H PO (09:21)
[2019-09-20] MEDS: PAROXETINE 10 MG TABLET PO (09:21)
[2019-09-20] MEDS: AMLODIPINE BESYLATE 5 MG TABLET 10 MG PO (09:21)
[2019-09-20] MEDS: PANTOPRAZOLE 40 MG TABLET PO ×2 (09:21→20:03)
[2019-09-20] MEDS: METOPROLOL TARTRATE 25 MG TABLET PO ×2 (09:21→20:02)
[2019-09-20] MEDS: ASPIRIN 81 MG CHEWABLE TABLET PO (09:21)
[2019-09-20 11:47] LABS: Glucose Point of Care 338 (65-105)
[2019-09-20 11:47] LABS: Glucose Point of Care 413 (65-105)
--- NOTE | 2019-09-20 13:56 | PM.IMPN ---
Progress Note: A&P Assessment and Plan (1) Recent cerebrovascular accident: Code(s): Z86.73 - Personal history of transient ischemic attack (TIA), and cerebral infarction without residual deficits Status: Acute Assessment and Plan: ----was at [facility] and now currently undergoing rehab in [facility]. Concern by [facility] staff for worsening symptoms 09/18.. Repeat scan shows worsening stroke with hemorrhagic transformation with a midline shift of 10 mm. Previously this shift was 4 mm. I talked to a neurologist at [facility] who suggested that we continue dexamethasone and holding the Plavix for 7 days. If she has worsening symptoms, she will need to be transferred and other, more invasive, treatments should be pursued. Patient is doing well at this time and I spoke to her family about this.. (2) Insulin dependent diabetes mellitus: Status: Chronic Assessment and Plan: ----- Worse since on dexamethasone. Will increase lantus and change to high dose SSI. If she continues to run high with this, will do planned meal time insulin with SSI. patient has had diabetes for 40 years and says that she usually takes 7-10 units of Humalog with her meals as well as 36 units of long-acting insulin. Metformin was also started this stay. Educated the pt on side affects of metformin such as abdominal pain or diarrhea and to let us know if this occurs. Hgb A1c 8.6. Continue to monitor with Accu-Cheks and cover with SSI. I have asked the nursing staff to call the medicine team for any glucose >400. (3) Essential hypertension: Code(s): I10 - Essential (primary) hypertension Status: Chronic Assessment and Plan: ----Last bp 129/61. Continue home Norvasc, Imdur, Lopressor. (4) Coronary artery disease: Qualifiers: Coronary Disease-Associated Artery/Lesion type: unspecified vessel or lesion type [place] vs. transplanted heart: unspecified whether [place] or transplanted heart Associated angina: without angina Qualified Code(s): I25.10 - Atherosclerotic heart disease of [place] coronary artery without angina pectoris Code(s): I25.10 - Atherosclerotic heart disease of [place] coronary artery without angina pectoris Status: Chronic Assessment and Plan: ------Recently had PCI with stent to circumflex at [facility]. Stable, no chest pain. EKG NSR w/ LBBB. Since pt was just stented and has no CP or cardiac symptoms at this time, do not suspect ACS. LBBB chronic, confirmed with old EKGs 09/19. Continue aspirin. (5) Hypothyroidism: Qualifiers: Hypothyroidism type: unspecified Qualified Code(s): E03.9 - Hypothyroidism, unspecified Code(s): E03.9 - Hypothyroidism, unspecified Status: Acute Assessment and Plan: -----Continue home levothyroxine. (6) Hyperlipidemia: Qualifiers: Hyperlipidemia type: unspecified Qualified Code(s): E78.5 - Hyperlipidemia, unspecified Code(s): E78.5 - Hyperlipidemia, unspecified Status: Acute Assessment and Plan: ----Maintained on home Statin therapy, she is also on Repatha at home. Subjective Date/time seen: 09/20/19 13:56 Interval history: Pt is a 78-year-old female consulted for diabetes management. Patient was seen today and has no complaints. She says she is feeling much better. Nursing staff said she did better with therapy and was able to taker her pills better. Pt denies nausea, vomiting, fevers, chills, constipation, diarrhea, chest pain, sob, or abdominal pain. Exam Narrative: Exam Narrative: General: Well developed well nourished patient resting comfortably in the chair in no acute distress HEENT: normocephalic Neck: supple Neuro: Alert and oriented x4. 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 Decreased strength in left lower limb. Right-sided strength 5/5. CV:RRR. EKG reviewed NSR w/ LBBB (chronic on review of old EKG) Resp:CTA Abd: Soft, non distended. No pain to
[2019-09-20 16:45] LABS: Glucose Point of Care 318 (65-105)
[2019-09-20] MEDS: ATORVASTATIN 40 MG TABLET 80 MG PO (20:01)
[2019-09-20 20:27] LABS: Glucose Point of Care 314 (65-105)
[2019-09-21] VITALS (7 sets, daily range): BP systolic 126–142; BP diastolic 51–57; PULSE 66–76; RESP 18–20; TEMP 36.6–37.1; O2SAT 95–100
[2019-09-21] MEDS: DEXAMETHASONE 4 MG TABLET PO ×4 (00:27→17:27)
[2019-09-21] MEDS: LEVOTHYROXINE SODIUM 150 MCG TABLET PO (06:16)
[2019-09-21 06:55] LABS: Glucose Point of Care 269 (65-105)
[2019-09-21] MEDS: INSULIN ASPART (*BKC) 100 UNITS/ML SUB-Q ×2 (07:12→12:08)
[2019-09-21] MEDS: INSULIN GLARGINE (*BKC) 100 UNITS/ML 27 UNITS SUB-Q (09:18)
[2019-09-21] MEDS: AMLODIPINE BESYLATE 5 MG TABLET 10 MG PO (09:26)
[2019-09-21] MEDS: ASPIRIN 81 MG CHEWABLE TABLET PO (09:26)
[2019-09-21] MEDS: METOPROLOL TARTRATE 25 MG TABLET PO ×2 (09:26→21:51)
[2019-09-21] MEDS: metFORMIN HCL 500 MG TABLET PO ×2 (09:26→17:27)
[2019-09-21] MEDS: PAROXETINE 10 MG TABLET PO (09:26)
[2019-09-21] MEDS: ISOSORBIDE MONONITRATE 60 MG TAB.ER.24H PO (09:26)
[2019-09-21] MEDS: PANTOPRAZOLE 40 MG TABLET PO ×2 (09:27→21:52)
[2019-09-21 11:42] LABS: Glucose Point of Care 313 (65-105)
--- NOTE | 2019-09-21 12:41 | PCDIET ---
Nutrition Follow-Up Complete: Nutrition Diagnosis: Suboptimal oral intake related to decreased appetite as evidenced by intakes 30-50%. Nutrition Goal: Patient to consume 50% of meals/supplements or greater. Goal met. Patient consumed an average of 69% of meals since 09/18/19. Spoke with patient via phone due to COVID-19 precautions. Patient reports improving appetite. Taking some Thrive Ice cream. Does not especially care for it but would like to continue on it for the time being. Last recorded weight is 76 kg. Recommend obtaining new weight. Bowel Motility: Last BM on 09/20/19. Labs Reviewed: Glu (313) Meds Noted: Dexamethasone, Novolog, Lantus, Glucophage, Protonix Additional Notes: MD increasing Lantus. Diet is appropriate (pureed, diabetic with mildly thick liquids and no sugar added Thrive BID). No documented pressure sores. Will continue to monitor with same goals. Nutrition Monitoring and Evaluation: Follow up in 5 days.
--- NOTE | 2019-09-21 14:31 | WPDNEURORHBP ---
Subjective Date/time seen: 09/21/19 14:31 Interval history: this 78-year-old woman is recuperating fairly well with the hemorrhagic transformation of the right hemispheric stroke she denies any headache nausea vomiting chest pain shortness of breath and tremendous improvement in the past 48 hours with the use of the Decadron Review of Systems Review of Systems: All systems reviewed & are unremarkable except as noted in HPI and below Functional Status Ambulation Ability Ability to Ambulate 10 Feet: Contact Guard Ability to Ambulate 50 Feet With 2 Turns: Minimum Assistance X 1 Ability to Ambulate 150 Feet: Minimum Assistance X 1 Ambulation Assistive Devices: Walker, Wheeled Transfers Ability Ability to Transfer In/Out of Chair: Maximum Assistance X 1 Exam Const: General: comfortable and no acute distress HENMT: General nose exam: Normal nares present Mouth: Yes moist mucous membranes Eyes: General: appearance normal, both eyes and all related structures Neck: Neck: supple and no JVD Resp: Effort & Inspection: normal respiratory effort Auscultation: clear to auscultation bilaterally Cardio: Rate: regular rate Rhythm: regular rhythm GI: GI Palp: Yes Soft to palpation Auscultation: normal bowel sounds Skin: General skin exam: normal color and no rashes or lesions noted Neuro: Other: patient has significantly improved overall and past 48 hours she remains awake alert and well oriented to time place person with normal speech and language function left-sided a.m. hemiparesis has improved and she walked quite a bit Extrem: General: normal to inspection Psych: Mental Status: mental status grossly normal Objective Data Vital Signs Vital Signs: Vital Signs - 24 hr 09/20/19 20:00 09/20/19 20:02 09/20/19 20:20 Temperature 36.9 C Pulse Rate 75 75 75 Respiratory Rate 20 20 Blood Pressure 127/45 L Pulse Oximetry 100 100 09/20/19 22:00 09/21/19 06:00 09/21/19 09:26 Temperature 36.9 C 37.1 C Pulse Rate 75 76 76 Respiratory Rate 20 18 Blood Pressure 127/45 L 142/51 H Pulse Oximetry 100 100 09/21/19 11:43 Temperature 36.6 C Pulse Rate 73 Respiratory Rate 20 Blood Pressure 126/56 L Pulse Oximetry 100 Intake/Output Intake/Output: Intake & Output 09/18/19 09/19/19 09/20/19 09/21/19 23:59 23:59 23:59 23:59 Intake Total 1190 840 960 Output Total 500 Balance 1190 340 960 Meds/Results Medications: Active Medications Generic Name Dose Route Start Last Admin Trade Name Freq PRN Reason Stop Dose Admin Amlodipine Besylate 10 mg 09/17/19 09:00 09/21/19 09:26 Norvasc PO 10 mg DAILY YAMILE Administration Aspirin 81 mg 09/12/19 09:00 09/21/19 09:26 Aspirin Chewable PO 81 mg DAILY YAMILE Administration Atorvastatin Calcium 80 mg 09/11/19 21:00 09/20/19 20:01 Lipitor PO 80 mg HS YAMILE Administration Clopidogrel Bisulfate 75 mg 09/12/19 09:00 09/19/19 09:00 Plavix PO 75 mg DAILY YAMILE Administration Dexamethasone 4 mg 09/19/19 18:00 09/21/19 12:09 Dexamethasone Po PO 4 mg Q6HR YAMILE Administration Dextrose 12.5 gm 09/11/19 16:27 Dextrose 50% Syringe IV PUSH PRN PRN Hypoglycemia Protocol Glucagon 1 mg 09/11/19 16:27 Glucagon For Inj IM PRN PRN Hypoglycemia Protocol Glucose 15 gm 09/11/19 16:27 Glutose 15 PO PRN PRN Hypoglycemia Protocol Dextrose 1,000 mls @ 100 mls/hr 09/11/19 16:27 Dextrose 5% 1,000 Ml IVPB PRN PRN Hypoglycemia Protocol Insulin Aspart 4 - 8 units 09/20/19 12:00 09/21/19 12:08 Novolog SUB-Q 6 units TIDWM YAMILE Administration Protocol Insulin Glargine 27 units 09/21/19 09:00 09/21/19 09:18 Lantus SUB-Q 27 units DAILY YAMILE Administration Isosorbide Mononitrate 60 mg 09/12/19 09:00 09/21/19 09:26 Imdur PO 60 mg DAILY YAMILE Administration Levothyroxine Sodium 150 mcg 09/12/19 06:30 09/21/19 06:16
--- NOTE | 2019-09-21 15:32 | PM.IMPN ---
Progress Note: A&P Assessment and Plan (1) Recent cerebrovascular accident: Code(s): Z86.73 - Personal history of transient ischemic attack (TIA), and cerebral infarction without residual deficits Status: Acute Assessment and Plan: ----was at [facility] and now currently undergoing rehab in [facility]. Concern by [facility] staff for worsening symptoms 09/18. Repeat scan shows worsening stroke with hemorrhagic transformation with a midline shift of 10 mm. Previously this shift was 4 mm. I talked to a neurologist at [facility] who suggested that we continue dexamethasone and holding the Plavix for 7 days. If she has worsening symptoms, she will need to be transferred and other, more invasive, treatments should be pursued. Patient is doing well at this time and I spoke to her family about this. (2) Insulin dependent diabetes mellitus: Status: Chronic Assessment and Plan: ----- Worse since on dexamethasone. Will increase lantus again today (pt took 36u at home at baseline) and continue high dose SSI. If she continues to run high with this, will do planned meal time insulin with SSI. patient has had diabetes for 40 years and says that she usually takes 7-10 units of Humalog with her meals as well as 36 units of long-acting insulin. Metformin was also started this stay. Educated the pt on side affects of metformin such as abdominal pain or diarrhea and to let us know if this occurs. Hgb A1c 8.6. Continue to monitor with Accu-Cheks and cover with SSI. I have asked the nursing staff to call the medicine team for any glucose >400. (3) Essential hypertension: Code(s): I10 - Essential (primary) hypertension Status: Chronic Assessment and Plan: ----Last bp 129/53. Continue home Norvasc, Imdur, Lopressor. (4) Coronary artery disease: Qualifiers: Coronary Disease-Associated Artery/Lesion type: unspecified vessel or lesion type [place] vs. transplanted heart: unspecified whether [place] or transplanted heart Associated angina: without angina Qualified Code(s): I25.10 - Atherosclerotic heart disease of [place] coronary artery without angina pectoris Code(s): I25.10 - Atherosclerotic heart disease of [place] coronary artery without angina pectoris Status: Chronic Assessment and Plan: ------Recently had PCI with stent to circumflex at [facility]. Stable, no chest pain. EKG NSR w/ LBBB. Since pt was just stented and has no CP or cardiac symptoms at this time, do not suspect ACS. LBBB chronic, confirmed with old EKGs 09/19. Continue aspirin. (5) Hypothyroidism: Qualifiers: Hypothyroidism type: unspecified Qualified Code(s): E03.9 - Hypothyroidism, unspecified Code(s): E03.9 - Hypothyroidism, unspecified Status: Acute Assessment and Plan: -----Continue home levothyroxine. (6) Hyperlipidemia: Qualifiers: Hyperlipidemia type: unspecified Qualified Code(s): E78.5 - Hyperlipidemia, unspecified Code(s): E78.5 - Hyperlipidemia, unspecified Status: Acute Assessment and Plan: ----Maintained on home Statin therapy, she is also on Repatha at home. Subjective Date/time seen: 09/21/19 15:32 Interval history: Pt is a 78-year-old female consulted for diabetes management. Patient was seen today and has no complaints. Pt denies nausea, vomiting, fevers, chills, constipation, diarrhea, chest pain, sob, or abdominal pain. She is doing better with physical therapy. Exam Narrative: Exam Narrative: General: Well developed well nourished patient resting comfortably in the bed eating lunch in no acute distress HEENT: normocephalic Neck: supple Neuro: Alert and oriented x4. 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 Decreased strength in left lower limb. Right-sided strength 5/5. CV:RRR. EKG reviewed NSR w/ LBBB (chronic on review of old EKG) Resp:CTA Abd: Soft, non distended. No pain to palpation. Positive bowel s
[2019-09-21 16:53] LABS: Glucose Point of Care 188 (65-105)
[2019-09-21] MEDS: ATORVASTATIN 40 MG TABLET 80 MG PO (21:52)
[2019-09-21 22:31] LABS: Glucose Point of Care 209 (65-105)
[2019-09-22] MEDS: DEXAMETHASONE 4 MG TABLET PO ×5 (03:59→21:00)
[2019-09-22] MEDS: LEVOTHYROXINE SODIUM 150 MCG TABLET PO (05:25)
[2019-09-22 06:00] VITALS: BP 132/58; PULSE 81; RESP 19; TEMP 37; O2SAT 99
[2019-09-22 07:34] LABS: Glucose Point of Care 150 (65-105)
[2019-09-22] MEDS: INSULIN GLARGINE (*BKC) 100 UNITS/ML 32 UNITS SUB-Q (08:47)
[2019-09-22 08:48] VITALS: PULSE 81
[2019-09-22] MEDS: ISOSORBIDE MONONITRATE 60 MG TAB.ER.24H PO (08:48)
[2019-09-22] MEDS: AMLODIPINE BESYLATE 5 MG TABLET 10 MG PO (08:48)
[2019-09-22] MEDS: METOPROLOL TARTRATE 25 MG TABLET PO ×2 (08:48→20:55)
[2019-09-22] MEDS: PAROXETINE 10 MG TABLET PO (08:48)
[2019-09-22] MEDS: PANTOPRAZOLE 40 MG TABLET PO ×2 (08:49→20:54)
[2019-09-22] MEDS: ASPIRIN 81 MG CHEWABLE TABLET PO (08:49)
[2019-09-22] MEDS: metFORMIN HCL 500 MG TABLET PO ×2 (08:49→17:20)
[2019-09-22 10:00] VITALS: BP 125/56; PULSE 68; RESP 20; TEMP 36.8; O2SAT 100
[2019-09-22 11:50] LABS: Glucose Point of Care 220 (65-105)
[2019-09-22] MEDS: INSULIN ASPART (*BKC) 100 UNITS/ML SUB-Q (12:12)
[2019-09-22 14:00] VITALS: BP 132/53; PULSE 72; RESP 18; TEMP 37.1; O2SAT 100
--- NOTE | 2019-09-22 14:23 | PM.IMPN ---
Progress Note: A&P Assessment and Plan (1) Recent cerebrovascular accident: Code(s): Z86.73 - Personal history of transient ischemic attack (TIA), and cerebral infarction without residual deficits Status: Acute Assessment and Plan: ----was at [facility] and now currently undergoing rehab in [facility]. Concern by [facility] staff for worsening symptoms 09/18. Repeat scan shows worsening stroke with hemorrhagic transformation with a midline shift of 10 mm. Previously this shift was 4 mm. I talked to a neurologist at [facility] who suggested that we continue dexamethasone and holding the Plavix for 7 days. If she has worsening symptoms, she will need to be transferred and other, more invasive, treatments should be pursued. (2) Insulin dependent diabetes mellitus: Status: Chronic Assessment and Plan: ----- Worse since on dexamethasone but better with yesterday's adjustment. Lantus now at 32u a day (she takes 36 at home) and we will continue with high dose SSI. patient has had diabetes for 40 years and says that she usually takes 7-10 units of Humalog with her meals as well as 36 units of long-acting insulin. Metformin was also started this stay. Educated the pt on side affects of metformin such as abdominal pain or diarrhea and to let us know if this occurs. Hgb A1c 8.6. Continue to monitor with Accu-Cheks and cover with SSI. I have asked the nursing staff to call the medicine team for any glucose >400. (3) Essential hypertension: Code(s): I10 - Essential (primary) hypertension Status: Chronic Assessment and Plan: ----Last bp 132/58. Continue home Norvasc, Imdur, Lopressor. (4) Coronary artery disease: Qualifiers: Associated angina: without angina Coronary Disease-Associated Artery/Lesion type: unspecified vessel or lesion type [place] vs. transplanted heart: unspecified whether [place] or transplanted heart Qualified Code(s): I25.10 - Atherosclerotic heart disease of [place] coronary artery without angina pectoris Code(s): I25.10 - Atherosclerotic heart disease of [place] coronary artery without angina pectoris Status: Chronic Assessment and Plan: ------Recently had PCI with stent to circumflex at [facility]. Stable, no chest pain. EKG NSR w/ LBBB. Since pt was just stented and has no CP or cardiac symptoms at this time, do not suspect ACS. LBBB chronic, confirmed with old EKGs 09/19. Continue aspirin. (5) Hypothyroidism: Qualifiers: Hypothyroidism type: unspecified Qualified Code(s): E03.9 - Hypothyroidism, unspecified Code(s): E03.9 - Hypothyroidism, unspecified Status: Acute Assessment and Plan: -----Continue home levothyroxine. (6) Hyperlipidemia: Qualifiers: Hyperlipidemia type: unspecified Qualified Code(s): E78.5 - Hyperlipidemia, unspecified Code(s): E78.5 - Hyperlipidemia, unspecified Status: Acute Assessment and Plan: ----Maintained on home Statin therapy, she is also on Repatha at home. Subjective Date/time seen: 09/22/19 14:23 Interval history: Pt is a 78-year-old female consulted for diabetes management. Patient was seen today and has no complaints. Pt denies nausea, vomiting, fevers, chills, constipation, diarrhea, chest pain, sob, or abdominal pain. Exam Narrative: Exam Narrative: General: Well developed well nourished patient resting comfortably in the bed eating lunch in no acute distress HEENT: normocephalic Neck: supple Neuro: Alert and oriented x4. Very weak meal miller strength on the left. Decreased strength in left lower limb. Right-sided strength 5/5. CV:RRR. EKG reviewed NSR w/ LBBB (chronic on review of old EKG) Resp:CTA Abd: Soft, non distended. No pain to palpation. Positive bowel sounds Extremities: No swelling, erythema, or pain to palpation. Objective Data Vital Signs Vital Signs: Vital Signs - 24 hr 09/21/19 20:00 09/21/19 21:51 05
[2019-09-22 16:53] LABS: Glucose Point of Care 145 (65-105)
--- NOTE | 2019-09-22 17:46 | WPDNEURORHBP ---
Subjective Date/time seen: 09/22/19 17:46 Interval history: this 78-year-old woman is recuperating from the hemorrhagic transformation of the right hemispheric stroke she is doing remarkably well and the walking much better denies any headache nausea vomiting chest pain shortness of breath fever chills sore throat Review of Systems Review of Systems: All systems reviewed & are unremarkable except as noted in HPI and below Functional Status Ambulation Ability Ability to Ambulate 10 Feet: Contact Guard Ability to Ambulate 50 Feet With 2 Turns: Contact Guard Ability to Ambulate 150 Feet: Minimum Assistance X 1 Ambulation Assistive Devices: Walker, Wheeled Transfers Ability Ability to Transfer In/Out of Chair: Maximum Assistance X 1 Exam Const: General: comfortable and no acute distress HENMT: General nose exam: Normal nares present Mouth: Yes moist mucous membranes Eyes: General: appearance normal, both eyes and all related structures Neck: Neck: supple and no JVD Resp: Effort & Inspection: normal respiratory effort Auscultation: clear to auscultation bilaterally Cardio: Rate: regular rate Rhythm: regular rhythm GI: GI Palp: Yes Soft to palpation Auscultation: normal bowel sounds Skin: General skin exam: normal color and no rashes or lesions noted Neuro: Other: her mental status examination is normal left-sided hemiparesis is improving left-sided visual field defect is stable left-sided neglect has significantly improved Extrem: General: normal to inspection Psych: Mental Status: mental status grossly normal Objective Data Vital Signs Vital Signs: Vital Signs - 24 hr 09/21/19 20:00 09/21/19 21:51 09/21/19 22:00 Temperature 36.7 C Pulse Rate 76 76 76 Respiratory Rate 18 18 Blood Pressure 130/57 L Pulse Oximetry 100 100 09/22/19 06:00 09/22/19 08:48 09/22/19 10:00 Temperature 37.0 C 36.8 C Pulse Rate 81 81 68 Respiratory Rate 19 20 Blood Pressure 132/58 L 125/56 L Pulse Oximetry 99 100 09/22/19 14:00 Temperature 37.1 C Pulse Rate 72 Respiratory Rate 18 Blood Pressure 132/53 L Pulse Oximetry 100 Intake/Output Intake/Output: Intake & Output 09/19/19 09/20/19 09/21/19 09/22/19 23:59 23:59 23:59 23:59 Intake Total 840 960 480 720 Output Total 500 250 Balance 340 960 230 720 Meds/Results Medications: Active Medications Generic Name Dose Route Start Last Admin Trade Name Freq PRN Reason Stop Dose Admin Amlodipine Besylate 10 mg 09/17/19 09:00 09/22/19 08:48 Norvasc PO 10 mg DAILY YAMILE Administration Aspirin 81 mg 09/12/19 09:00 09/22/19 08:49 Aspirin Chewable PO 81 mg DAILY YAMILE Administration Atorvastatin Calcium 80 mg 09/11/19 21:00 09/21/19 21:52 Lipitor PO 80 mg HS YAMILE Administration Clopidogrel Bisulfate 75 mg 09/12/19 09:00 09/19/19 09:00 Plavix PO 75 mg DAILY YAMILE Administration Dexamethasone 4 mg 09/22/19 22:00 Dexamethasone Po PO Q8HR [facility] Dextrose 12.5 gm 09/11/19 16:27 Dextrose 50% Syringe IV PUSH PRN PRN Hypoglycemia Protocol Glucagon 1 mg 09/11/19 16:27 Glucagon For Inj IM PRN PRN Hypoglycemia Protocol Glucose 15 gm 09/11/19 16:27 Glutose 15 PO PRN PRN Hypoglycemia Protocol Dextrose 1,000 mls @ 100 mls/hr 09/11/19 16:27 Dextrose 5% 1,000 Ml IVPB PRN PRN Hypoglycemia Protocol Insulin Aspart 4 - 8 units 09/20/19 12:00 09/22/19 17:05 Novolog SUB-Q Not Given TIDWM [facility] Protocol Insulin Glargine 32 units 09/21/19 15:32 09/22/19 08:47 Lantus SUB-Q 32 units DAILY YAMILE Administration Isosorbide Mononitrate 60 mg 09/12/19 09:00 09/22/19 08:48 Imdur PO 60 mg DAILY YAMILE Administration Levothyroxine Sodium 150 mcg 09/12/19 06:30 09/22/19 05:25 Synthroid PO 150 mcg 0630 YAMILE Administration Metformin HCl 500 mg 09/18/19 17:00 09/22/19 17:20 Glucophage PO 5
[2019-09-22] MEDS: ATORVASTATIN 40 MG TABLET 80 MG PO (20:54)
[2019-09-22 20:55] VITALS: PULSE 76
[2019-09-22 21:25] LABS: Glucose Point of Care 168 (65-105)
[2019-09-22 22:00] VITALS: BP 126/67; PULSE 74; RESP 18; TEMP 37.8; O2SAT 100
[2019-09-23] MEDS: LEVOTHYROXINE SODIUM 150 MCG TABLET PO (05:59)
[2019-09-23] MEDS: DEXAMETHASONE 4 MG TABLET PO ×3 (05:59→21:26)
[2019-09-23 06:00] VITALS: BP 156/57; PULSE 77; RESP 77; TEMP 37.2; O2SAT 18
[2019-09-23 07:02] LABS: Glucose Point of Care 108 (65-105)
[2019-09-23] MEDS: AMLODIPINE BESYLATE 5 MG TABLET 10 MG PO (09:17)
[2019-09-23] MEDS: ASPIRIN 81 MG CHEWABLE TABLET PO (09:17)
[2019-09-23] MEDS: metFORMIN HCL 500 MG TABLET PO ×2 (09:17→18:05)
[2019-09-23 09:18] VITALS: PULSE 77
[2019-09-23] MEDS: METOPROLOL TARTRATE 25 MG TABLET PO ×2 (09:18→21:26)
[2019-09-23] MEDS: ISOSORBIDE MONONITRATE 60 MG TAB.ER.24H PO (09:18)
[2019-09-23] MEDS: INSULIN GLARGINE (*BKC) 100 UNITS/ML 25 UNITS SUB-Q (09:18)
[2019-09-23] MEDS: PANTOPRAZOLE 40 MG TABLET PO ×2 (09:19→21:26)
[2019-09-23] MEDS: PAROXETINE 10 MG TABLET PO (09:19)
[2019-09-23 10:00] VITALS: BP 140/64; PULSE 76
[2019-09-23 12:19] LABS: Glucose Point of Care 120 (65-105)
--- NOTE | 2019-09-23 12:44 | PM.IMPN ---
Progress Note: A&P Assessment and Plan (1) Low grade fever: Code(s): R50.9 - Fever, unspecified Status: Acute Assessment and Plan: -----patient had a low-grade fever overnight 100.1. No infection suspected will check a CBC tomorrow morning. I am going to order a spirometer so she can avoid atelectasis. Lung exam sounds normal, no history of dysuria. If she continues to have fevers, more workup will be done. Her white blood cell count may be elevated tomorrow since she is on dexamethasone. As of now, she feels great and I will monitor her. (2) Recent cerebrovascular accident: Code(s): Z86.73 - Personal history of transient ischemic attack (TIA), and cerebral infarction without residual deficits Status: Acute Assessment and Plan: ----was at [facility] and now currently undergoing rehab in [facility]. Concern by [facility] staff for worsening symptoms 09/18. Repeat scan shows worsening stroke with hemorrhagic transformation with a midline shift of 10 mm. Previously this shift was 4 mm. I talked to a neurologist at [facility] who suggested that we continue dexamethasone and holding the Plavix for 7 days. If she has worsening symptoms, she will need to be transferred and other, more invasive, treatments should be pursued. (3) Insulin dependent diabetes mellitus: Status: Chronic Assessment and Plan: ----- Worse since on dexamethasone but better with yesterday's adjustment. Lantus decrease today to 25u since she is getting less steroids (she takes 36 at home) and we will continue with high dose SSI. patient has had diabetes for 40 years and says that she usually takes 7-10 units of Humalog with her meals as well as 36 units of long-acting insulin. Metformin was also started this stay. Educated the pt on side affects of metformin such as abdominal pain or diarrhea and to let us know if this occurs. Hgb A1c 8.6. Continue to monitor with Accu-Cheks and cover with SSI. I have asked the nursing staff to call the medicine team for any glucose >400. (4) Essential hypertension: Code(s): I10 - Essential (primary) hypertension Status: Chronic Assessment and Plan: ----Last bp 156/57, higher than her normal average. Continue home Norvasc, Imdur, and Lopressor. (5) Coronary artery disease: Qualifiers: Coronary Disease-Associated Artery/Lesion type: unspecified vessel or lesion type [place] vs. transplanted heart: unspecified whether [place] or transplanted heart Associated angina: without angina Qualified Code(s): I25.10 - Atherosclerotic heart disease of [place] coronary artery without angina pectoris Code(s): I25.10 - Atherosclerotic heart disease of [place] coronary artery without angina pectoris Status: Chronic Assessment and Plan: ------Recently had PCI with stent to circumflex at [facility]. Stable, no chest pain. EKG NSR w/ LBBB. Since pt was just stented and has no CP or cardiac symptoms at this time, do not suspect ACS. LBBB chronic, confirmed with old EKGs 09/19. Continue aspirin. (6) Hypothyroidism: Qualifiers: Hypothyroidism type: unspecified Qualified Code(s): E03.9 - Hypothyroidism, unspecified Code(s): E03.9 - Hypothyroidism, unspecified Status: Acute Assessment and Plan: -----Continue home levothyroxine. (7) Hyperlipidemia: Qualifiers: Hyperlipidemia type: unspecified Qualified Code(s): E78.5 - Hyperlipidemia, unspecified Code(s): E78.5 - Hyperlipidemia, unspecified Status: Acute Assessment and Plan: ----Maintained on home Statin therapy, she is also on Repatha at home. Additional Plan Thank you for allowing us to participate in this patient's care. Please do not hesitate to contact us with any questions. We will follow with you. Subjective Date/time seen: 09/23/19 12:44 Interval history: 78-year-old female here for CVA. Patient states that she feels
[2019-09-23 14:00] VITALS: BP 135/60; PULSE 70; RESP 18; TEMP 37; O2SAT 100
--- NOTE | 2019-09-23 17:29 | WPDNEURORHBP ---
Subjective Date/time seen: 09/23/19 17:29 Interval history: the 78-year-old woman is recuperating from the hemorrhagic transformation of the rather large right hemispheric stroke with left-sided hemiparesis she has significantly improved and I am tapering her dexamethasone patient denies any headache nausea vomiting chest pain shortness of breath fever chills sore throat and looking forward to go home of course she will need supervision and assistance because of the visual field defect and the safety concerns which have been addressing during the team conference and I have always spoken with her son Review of Systems Review of Systems: All systems reviewed & are unremarkable except as noted in HPI and below Functional Status Ambulation Ability Ability to Ambulate 10 Feet: Contact Guard Ability to Ambulate 50 Feet With 2 Turns: Contact Guard Ability to Ambulate 150 Feet: Contact Guard Ambulation Assistive Devices: Walker, Wheeled Transfers Ability Ability to Transfer In/Out of Chair: Maximum Assistance X 1 Exam Const: General: comfortable and no acute distress HENMT: General nose exam: Normal nares present Mouth: Yes moist mucous membranes Eyes: General: appearance normal, both eyes and all related structures Neck: Neck: supple and no JVD Resp: Effort & Inspection: normal respiratory effort Auscultation: clear to auscultation bilaterally Cardio: Rate: regular rate Rhythm: regular rhythm GI: GI Palp: Yes Soft to palpation Auscultation: normal bowel sounds Skin: General skin exam: normal color and no rashes or lesions noted Neuro: Other: patient has fluent speech well oriented time place and person left visual field defect is stable left hemiparesis has significantly improved Extrem: General: normal to inspection Psych: Mental Status: mental status grossly normal Objective Data Vital Signs Vital Signs: Vital Signs - 24 hr 09/22/19 20:55 09/22/19 22:00 09/23/19 06:00 Temperature 37.8 C H 37.2 C Pulse Rate 76 74 77 Respiratory Rate 18 77 H Blood Pressure 126/67 156/57 H Pulse Oximetry 100 18 L 09/23/19 09:18 09/23/19 10:00 09/23/19 14:00 Temperature 37.0 C Pulse Rate 77 76 70 Respiratory Rate 18 Blood Pressure 140/64 135/60 Pulse Oximetry 100 Intake/Output Intake/Output: Intake & Output 09/20/19 09/21/19 09/22/19 09/23/19 23:59 23:59 23:59 23:59 Intake Total 033 341 5474 840 Output Total 250 Balance 420 864 7793 840 Meds/Results Medications: Active Medications Generic Name Dose Route Start Last Admin Trade Name Freq PRN Reason Stop Dose Admin Amlodipine Besylate 10 mg 09/17/19 09:00 09/23/19 09:17 Norvasc PO 10 mg DAILY YAMILE Administration Aspirin 81 mg 09/12/19 09:00 09/23/19 09:17 Aspirin Chewable PO 81 mg DAILY YAMILE Administration Atorvastatin Calcium 80 mg 09/11/19 21:00 09/22/19 20:54 Lipitor PO 80 mg HS YAMILE Administration Clopidogrel Bisulfate 75 mg 09/12/19 09:00 09/19/19 09:00 Plavix PO 75 mg DAILY YAMILE Administration Dexamethasone 4 mg 09/23/19 21:00 Dexamethasone Po PO Q12HR YAMILE Dextrose 12.5 gm 09/11/19 16:27 Dextrose 50% Syringe IV PUSH PRN PRN Hypoglycemia Protocol Glucagon 1 mg 09/11/19 16:27 Glucagon For Inj IM PRN PRN Hypoglycemia Protocol Glucose 15 gm 09/11/19 16:27 Glutose 15 PO PRN PRN Hypoglycemia Protocol Dextrose 1,000 mls @ 100 mls/hr 09/11/19 16:27 Dextrose 5% 1,000 Ml IVPB PRN PRN Hypoglycemia Protocol Insulin Aspart 4 - 8 units 09/20/19 12:00 09/23/19 12:23 Novolog SUB-Q Not Given TIDWM [facility] Protocol Insulin Glargine 25 units 09/23/19 08:37 09/23/19 09:18 Lantus SUB-Q 25 units DAILY YAMILE Administration Isosorbide Mononitrate 60 mg 09/12/19 09:00 09/23/19 09:18 Imdur PO 60 mg DAILY YAMILE Administration Levothyroxine Sodium 150 mcg 09/12/19 06:30
[2019-09-23 17:31] LABS: Glucose Point of Care 103 (65-105)
[2019-09-23] MEDS: ATORVASTATIN 40 MG TABLET 80 MG PO (21:25)
[2019-09-23 21:26] VITALS: PULSE 72
[2019-09-23 21:43] LABS: Glucose Point of Care 97 (65-105)
[2019-09-23 22:00] VITALS: BP 140/50; PULSE 73; RESP 18; TEMP 37.1; O2SAT 100
[2019-09-24] VITALS (7 sets, daily range): BP systolic 133–148; BP diastolic 52–78; PULSE 68–82; RESP 18; TEMP 35.9–37.3; O2SAT 97–100
[2019-09-24 05:09] LABS: Hematocrit 29.5 % (37.0-47.0); Hemoglobin 10.1 g/dL (12.0-15.0); Immature Granulocyte Absolute 0.05 K/mm3 (0.00-0.031); Immature Granulocyte Percent A 0.6 % (0-0.5); Lymphocytes Absolute Auto 0.29 K/mm3 (0.9-3.2); Lymphocytes Percent Auto 3.3 % (18.3-44.2); Mean Corpuscular HGB Conc 34.2 g/dl (32-36); Mean Corpuscular Hemoglobin 31.5 pg (26-34); Mean Corpuscular Volume 91.9 fl (80-100); Mean Platelet Volume 11.4 fl (7.4-10.4); Monocytes Absolute Auto 0.4 K/mm3 (0.1-0.6); Monocytes Percent Auto 4.7 % (2.6-8.5); Neutrophils Absolute Auto 7.9 K/mm3 (1.3-6.7); Neutrophils Percent Auto 91.4 % (45.5-73.1); Platelet Count Result 271 k/mm3 (150-375); Red Blood Count 3.21 M/mm3 (4.2-5.4); Red Cell Distribution Width 13.2 % (11.5-14.5); White Blood Count 8.7 K/mm3 (4.5-10.0)
[2019-09-24 05:18] LABS: CRP 0.6 mg/dL (<1.0)
[2019-09-24] MEDS: LEVOTHYROXINE SODIUM 150 MCG TABLET PO (06:24)
[2019-09-24 06:29] LABS: Glucose Point of Care 68 (65-105)
[2019-09-24] MEDS: metFORMIN HCL 500 MG TABLET PO ×2 (09:00→17:21)
[2019-09-24] MEDS: PANTOPRAZOLE 40 MG TABLET PO ×2 (09:01→20:10)
[2019-09-24] MEDS: METOPROLOL TARTRATE 25 MG TABLET PO ×2 (09:01→20:10)
[2019-09-24] MEDS: ISOSORBIDE MONONITRATE 60 MG TAB.ER.24H PO (09:01)
[2019-09-24] MEDS: INSULIN GLARGINE (*BKC) 100 UNITS/ML 25 UNITS SUB-Q (09:02)
[2019-09-24] MEDS: DEXAMETHASONE 4 MG TABLET PO ×2 (09:02→20:10)
[2019-09-24] MEDS: PAROXETINE 10 MG TABLET PO (09:02)
[2019-09-24] MEDS: AMLODIPINE BESYLATE 5 MG TABLET 10 MG PO (09:02)
[2019-09-24] MEDS: ASPIRIN 81 MG CHEWABLE TABLET PO (09:02)
[2019-09-24 09:11] LABS: Glucose Point of Care 102 (65-105)
--- NOTE | 2019-09-24 11:25 | WPDNEURORHBP ---
Subjective Date/time seen: 09/24/19 11:25 Right hemispheric stroke with hemohrrhagic transformation and resultant left hemiparesis Review of Systems Review of Systems: All systems reviewed & are unremarkable except as noted in HPI and below Functional Status Ambulation Ability Ability to Ambulate 10 Feet: Contact Guard Ability to Ambulate 50 Feet With 2 Turns: Contact Guard Ability to Ambulate 150 Feet: Contact Guard Ambulation Assistive Devices: Walker, Wheeled Transfers Ability Ability to Transfer In/Out of Chair: Maximum Assistance X 1 Exam Const: General: cooperative, comfortable and no acute distress HENMT: Head: normal to inspection General nose exam: Normal external nose present and No nasal discharge present Mouth: Yes Normal oral and palatal mucosa present Eyes: General: appearance normal, both eyes and all related structures Neck: Neck: normal visual inspection and full ROM Resp: Effort & Inspection: normal respiratory effort Auscultation: clear to auscultation bilaterally Cardio: Rate: regular rate Rhythm: regular rhythm GI: Auscultation: normal bowel sounds Skin: General skin exam: no rashes or lesions noted Neuro: General: patient oriented x3 Cranial nerves: Yes CN's II-XII intact bilaterally (improving LVFC) Psych: Appearance: grossly normal Objective Data Vital Signs Vital Signs: Vital Signs - 24 hr 09/23/19 14:00 09/23/19 21:26 09/23/19 22:00 Temperature 37.0 C 37.1 C Pulse Rate 70 72 73 Respiratory Rate 18 18 Blood Pressure 135/60 140/50 L Pulse Oximetry 100 100 09/24/19 02:00 09/24/19 06:00 09/24/19 09:01 Temperature 36.9 C 36.3 C L Pulse Rate 68 69 69 Respiratory Rate 18 18 Blood Pressure 133/55 L 148/56 H Pulse Oximetry 100 100 Intake/Output Intake/Output: Intake & Output 09/21/19 09/22/19 09/23/19 09/24/19 23:59 23:59 23:59 23:59 Intake Total 480 1080 1080 120 Output Total 250 Balance 230 1080 1080 120 Meds/Results Medications: Active Medications Generic Name Dose Route Start Last Admin Trade Name Freq PRN Reason Stop Dose Admin Amlodipine Besylate 10 mg 09/17/19 09:00 09/24/19 09:02 Norvasc PO 10 mg DAILY YAMILE Administration Aspirin 81 mg 09/12/19 09:00 09/24/19 09:02 Aspirin Chewable PO 81 mg DAILY YAMILE Administration Atorvastatin Calcium 80 mg 09/11/19 21:00 09/23/19 21:25 Lipitor PO 80 mg HS YAMILE Administration Clopidogrel Bisulfate 75 mg 09/12/19 09:00 09/19/19 09:00 Plavix PO 75 mg DAILY YAMILE Administration Dexamethasone 4 mg 09/23/19 21:00 09/24/19 09:02 Dexamethasone Po PO 4 mg Q12HR YAMILE Administration Dextrose 12.5 gm 09/11/19 16:27 Dextrose 50% Syringe IV PUSH PRN PRN Hypoglycemia Protocol Glucagon 1 mg 09/11/19 16:27 Glucagon For Inj IM PRN PRN Hypoglycemia Protocol Glucose 15 gm 09/11/19 16:27 Glutose 15 PO PRN PRN Hypoglycemia Protocol Dextrose 1,000 mls @ 100 mls/hr 09/11/19 16:27 Dextrose 5% 1,000 Ml IVPB PRN PRN Hypoglycemia Protocol Insulin Aspart 4 - 8 units 09/20/19 12:00 09/24/19 07:36 Novolog SUB-Q Not Given [facility] Protocol Insulin Aspart 3 - 6 units 09/24/19 12:00 Novolog SUB-Q [facility] Protocol Insulin Glargine 25 units 09/23/19 08:37 09/24/19 09:02 Lantus SUB-Q 25 units DAILY [facility] Administration Isosorbide Mononitrate 60 mg 09/12/19 09:00 09/24/19 09:01 Imdur PO 60 mg DAILY YAMILE Administration Levothyroxine Sodium 150 mcg 09/12/19 06:30 09/24/19 06:24 Synthroid PO 150 mcg 0630 YAMILE Administration Metformin HCl 500 mg 09/18/19 17:00 09/23/19 18:05 Glucophage PO 500 mg BIDWM YAMILE Administration Metoprolol Tartrate 25 mg 09/11/19 21:00 09/24/19 09:01 Lopressor PO 25 mg Q12HR YAMILE Administration Pantoprazole Sodium 40 mg 09/19/19 21:00 09/24/19 09:01 Protonix PO 40 mg
[2019-09-24 11:59] LABS: Glucose Point of Care 136 (65-105)
--- NOTE | 2019-09-24 13:41 | PM.IMPN ---
Progress Note: A&P Assessment and Plan (1) Low grade fever: Code(s): R50.9 - Fever, unspecified Status: Acute Assessment and Plan: -----patient had a low-grade fever 09/21 of 100.1 but has not had one since. CXR shows atelectasis vs PNA. She has not had any coughing, lung exam normal, and her WBC count is normal. Suspect atelectasis. Spirometer ordered and I reviewed how it worked with her in the room today. If she continues to have fevers, more workup will be done. (2) Recent cerebrovascular accident: Code(s): Z86.73 - Personal history of transient ischemic attack (TIA), and cerebral infarction without residual deficits Status: Acute Assessment and Plan: ----was at [facility] and now currently undergoing rehab in [facility]. Concern by [facility] staff for worsening symptoms 09/18. Repeat scan shows worsening stroke with hemorrhagic transformation with a midline shift of 10 mm. Previously this shift was 4 mm. I talked to a neurologist at [facility] who suggested that we continue dexamethasone and holding the Plavix for 7 days (today is day 5). If she has worsening symptoms, she will need to be transferred and other, more invasive, treatments should be pursued. (3) Insulin dependent diabetes mellitus: Status: Chronic Assessment and Plan: ----- Worse since on dexamethasone but now that the medication is being tappered down, we are a little too low. Will decrease lantus and SSI. Since lantus was given this morning, I am having them check her Q4 hours until she trends up. Last glucose 136. patient has had diabetes for 40 years and says that she usually takes 7-10 units of Humalog with her meals as well as 36 units of long-acting insulin. Metformin was also started this stay. Educated the pt on side affects of metformin such as abdominal pain or diarrhea and to let us know if this occurs. Hgb A1c 8.6. Continue to monitor with Accu-Cheks and cover with SSI. I have asked the nursing staff to call the medicine team for any glucose >400 or any lows. (4) Essential hypertension: Code(s): I10 - Essential (primary) hypertension Status: Chronic Assessment and Plan: ----Last bp 148/56. Continue home Norvasc, Imdur, and Lopressor. (5) Coronary artery disease: Qualifiers: Coronary Disease-Associated Artery/Lesion type: unspecified vessel or lesion type [place] vs. transplanted heart: unspecified whether [place] or transplanted heart Associated angina: without angina Qualified Code(s): I25.10 - Atherosclerotic heart disease of [place] coronary artery without angina pectoris Code(s): I25.10 - Atherosclerotic heart disease of [place] coronary artery without angina pectoris Status: Chronic Assessment and Plan: ------Recently had PCI with stent to circumflex at [facility]. Stable, no chest pain. EKG NSR w/ LBBB. Since pt was just stented and has no CP or cardiac symptoms at this time, do not suspect ACS. LBBB chronic, confirmed with old EKGs 09/19. Continue aspirin. (6) Hypothyroidism: Qualifiers: Hypothyroidism type: unspecified Qualified Code(s): E03.9 - Hypothyroidism, unspecified Code(s): E03.9 - Hypothyroidism, unspecified Status: Acute Assessment and Plan: -----Continue home levothyroxine. (7) Hyperlipidemia: Qualifiers: Hyperlipidemia type: unspecified Qualified Code(s): E78.5 - Hyperlipidemia, unspecified Code(s): E78.5 - Hyperlipidemia, unspecified Status: Acute Assessment and Plan: ----Maintained on home Statin therapy, she is also on Repatha at home. Additional Plan Thank you for allowing us to participate in this patient's care. Please do not hesitate to contact us with any questions. We will follow with you. Subjective Date/time seen: 09/24/19 13:41 Interval history: Pt is a 78 y/o female with DM here for rehab from an acute stroke. Patient was seen tod
--- NOTE | 2019-09-24 15:29 | PCPTNOTE ---
Randa Call was evaluated for a wheeled walker on 09/24/2019 by this physical therapist. The wheeled walker will resolve patient's mobility limitations and will be used for ADL's within the home. The patient can safely use the wheeled walker. ?The wheeled walker will resolve the patient?s mobility deficits, including transfers, ambulation and ADL's. Marivel Armenta PT
[2019-09-24 16:39] LABS: Glucose Point of Care 107 (65-105)
[2019-09-24] MEDS: ATORVASTATIN 40 MG TABLET 80 MG PO (20:10)
[2019-09-24 21:22] LABS: Glucose Point of Care 80 (65-105)
[2019-09-25] MEDS: GLUCOSE ORAL GEL 15 GM OF GLUCSE IN 37.5 GM TUBE PO (00:22)
[2019-09-25 01:04] LABS: Glucose Point of Care 51 (65-105)
[2019-09-25 01:04] LABS: Glucose Point of Care 30 (65-105)
[2019-09-25 01:04] LABS: Glucose Point of Care 87 (65-105)
[2019-09-25 04:13] LABS: Glucose Point of Care 97 (65-105)
[2019-09-25 06:00] VITALS: BP 198/93; PULSE 55; RESP 20; TEMP 37.1; O2SAT 96
[2019-09-25] MEDS: LEVOTHYROXINE SODIUM 150 MCG TABLET PO (06:13)
[2019-09-25 06:27] LABS: Glucose Point of Care 103 (65-105)
[2019-09-25 07:45] LABS: Glucose Point of Care 107 (65-105)
--- NOTE | 2019-09-25 07:45 | PC.NURSE ---
spoke with Enriqueta with hospitalist group regarding low blood sugars overnight. morning accucheck was approximately 107. went through medications due this morning and Enriqueta stated metformin was alright to give this morning. will continue with q4 hour accuchecks. will continue to monitor.
[2019-09-25] MEDS: DEXAMETHASONE 4 MG TABLET PO ×2 (09:04→20:35)
[2019-09-25] MEDS: ISOSORBIDE MONONITRATE 60 MG TAB.ER.24H PO (09:04)
[2019-09-25] MEDS: PAROXETINE 10 MG TABLET PO (09:04)
[2019-09-25] MEDS: AMLODIPINE BESYLATE 5 MG TABLET 10 MG PO (09:04)
[2019-09-25] MEDS: ASPIRIN 81 MG CHEWABLE TABLET PO (09:04)
[2019-09-25] MEDS: metFORMIN HCL 500 MG TABLET PO ×2 (09:04→17:35)
[2019-09-25 09:05] VITALS: PULSE 55
[2019-09-25] MEDS: PANTOPRAZOLE 40 MG TABLET PO ×2 (09:05→20:35)
[2019-09-25] MEDS: METOPROLOL TARTRATE 25 MG TABLET PO ×2 (09:05→20:35)
[2019-09-25 11:41] LABS: Glucose Point of Care 192 (65-105)
--- NOTE | 2019-09-25 13:31 | WPDNEURORHBP ---
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 and we had to hold her Plavix at that time she is doing remarkably well and we are tapering her dexamethasone she denies any headache nausea vomiting chest pain shortness of breath her sugar in the 30s this morning for unclear reason however she is much better and we discussed the team conference everything seems to be going in the right direction however she is left with the decreased memory and of course safety awareness and visual field defect on the left side she is walking 300 feet in the therapy which is remarkably well of course with the help of the walker and assistance Review of Systems Review of Systems: All systems reviewed & are unremarkable except as noted in HPI and below Functional Status Ambulation Ability Ability to Ambulate 10 Feet: Contact Guard Ability to Ambulate 50 Feet With 2 Turns: Contact Guard Ability to Ambulate 150 Feet: Contact Guard Ambulation Assistive Devices: Walker, Wheeled Transfers Ability Ability to Transfer In/Out of Chair: Maximum Assistance X 1 Exam Const: General: comfortable and no acute distress HENMT: General nose exam: Normal nares present Mouth: Yes moist mucous membranes Eyes: General: appearance normal, both eyes and all related structures Neck: Neck: supple and no JVD Resp: Effort & Inspection: normal respiratory effort Auscultation: clear to auscultation bilaterally Cardio: Rate: regular rate Rhythm: regular rhythm GI: GI Palp: Yes Soft to palpation Auscultation: normal bowel sounds Skin: General skin exam: normal color and no rashes or lesions noted Neuro: Other: patient is awake and alert and well oriented time place person mild short-term memory deficit otherwise the left hemiparesis has improved visual field defect is stable neglect is improving however safety awareness and the ability to to the consequences of her own at is affected this was shared with her son present at the time of the team conference Extrem: General: normal to inspection Psych: Mental Status: mental status grossly normal Objective Data Vital Signs Vital Signs: Vital Signs - 24 hr 09/24/19 14:00 09/24/19 18:00 09/24/19 20:10 Temperature 35.9 C L 36.2 C L Pulse Rate 78 82 78 Respiratory Rate 18 18 Blood Pressure 146/78 H 138/74 Pulse Oximetry 98 97 09/24/19 22:00 09/25/19 06:00 09/25/19 09:05 Temperature 37.3 C 37.1 C Pulse Rate 76 55 L 55 L Respiratory Rate 18 20 Blood Pressure 144/52 H 198/93 H Pulse Oximetry 100 96 Intake/Output Intake/Output: Intake & Output 09/22/19 09/23/19 09/24/19 09/25/19 23:59 23:59 23:59 23:59 Intake Total 1080 1080 480 718 Balance 1080 1080 480 237 Meds/Results Medications: Active Medications Generic Name Dose Route Start Last Admin Trade Name Freq PRN Reason Stop Dose Admin Amlodipine Besylate 10 mg 09/17/19 09:00 09/25/19 09:04 Norvasc PO 10 mg DAILY YAMILE Administration Aspirin 81 mg 09/12/19 09:00 09/25/19 09:04 Aspirin Chewable PO 81 mg DAILY YAMILE Administration Atorvastatin Calcium 80 mg 09/11/19 21:00 09/24/19 20:10 Lipitor PO 80 mg HS YAMILE Administration Clopidogrel Bisulfate 75 mg 09/12/19 09:00 09/19/19 09:00 Plavix PO 75 mg DAILY YAMILE Administration Dexamethasone 4 mg 09/23/19 21:00 09/25/19 09:04 Dexamethasone Po PO 4 mg Q12HR YAMILE Administration Dextrose 12.5 gm 09/11/19 16:27 Dextrose 50% Syringe IV PUSH PRN PRN Hypoglycemia Protocol Glucagon 1 mg 09/11/19 16:27 Glucagon For Inj IM PRN PRN Hypoglycemia Protocol Glucose 15 gm 09/11/19 16:27 09/25/19 00:22 Glutose 15 PO 15 gm PRN PRN Administration Hypoglycemia Protocol Dextrose 1,000 mls @ 100 mls/hr 09/11/19 16:27 Dextrose 5% 1,000 Ml IVPB PRN PRN Hyp
--- NOTE | 2019-09-25 13:38 | PM.IMPN ---
Progress Note: A&P Assessment and Plan (1) Recent cerebrovascular accident: Code(s): Z86.73 - Personal history of transient ischemic attack (TIA), and cerebral infarction without residual deficits Status: Acute Assessment and Plan: Was at [facility] and now currently undergoing rehab in [facility]. Concern by [facility] staff for worsening symptoms 09/18. Repeat scan showed worsening stroke with hemorrhagic transformation with a midline shift of 10 mm. Previously this shift was 4 mm. Previous provider spoke to a neurologist at [facility] who suggested that continuing dexamethasone and holding the Plavix for 7 days (today is day 6). Neuro plans for repeat MRI brain tomorrow to reassess. (2) Insulin dependent diabetes mellitus: Status: Chronic Assessment and Plan: Hgb A1c 8.6. Difficulty controlling blood sugars since started on Dexamethasone. Had hypoglycemia last night down to 30s, improved today. Lantus is on hold. Continue with metformin and SSI for today. Continue accu-cheks ACHS. She has had diabetes for 40 years and says that she usually takes 7-10 units of Humalog with her meals as well as 36 units of long-acting insulin. Metformin was also started this stay. (3) Essential hypertension: Code(s): I10 - Essential (primary) hypertension Status: Chronic Assessment and Plan: Elevated this AM; improved this afternoon 134/69. Continue home norvasc, imdur, and lopressor. (4) Coronary artery disease: Qualifiers: Associated angina: without angina Coronary Disease-Associated Artery/Lesion type: unspecified vessel or lesion type [place] vs. transplanted heart: unspecified whether [place] or transplanted heart Qualified Code(s): I25.10 - Atherosclerotic heart disease of [place] coronary artery without angina pectoris Code(s): I25.10 - Atherosclerotic heart disease of [place] coronary artery without angina pectoris Status: Chronic Assessment and Plan: Recently had PCI with stent to circumflex at [facility]. Stable, no chest pain. EKG NSR w/ chronic LBBB compared to prior EKGs 09/2013. Continue aspirin. (5) Hypothyroidism: Qualifiers: Hypothyroidism type: unspecified Qualified Code(s): E03.9 - Hypothyroidism, unspecified Code(s): E03.9 - Hypothyroidism, unspecified Status: Acute Assessment and Plan: Continue home levothyroxine. (6) Hyperlipidemia: Qualifiers: Hyperlipidemia type: unspecified Qualified Code(s): E78.5 - Hyperlipidemia, unspecified Code(s): E78.5 - Hyperlipidemia, unspecified Status: Acute Assessment and Plan: Maintained on home statin therapy, she is also on Repatha at home. Additional Plan Thank you for allowing us to participate in this patient's care. Please do not hesitate to contact us with any questions. We will follow with you. Subjective Date/time seen: 09/25/19 1245 Interval history: Ms. Call is a 78yo F in [facility] following a right-sided CVA we are seeing in follow up for management of several medical comorbidities. She is sitting up in bedside chair, doing well today but she is frustrated because she cannot read the time on the clock. She denies chest pain, shortness of breath, or cough. She is tolerating oral intake without nausea or vomiting. Review of Systems Review of Systems: Narrative: Twelve systems were reviewed with pertinent positives and negatives as per HPI. Exam Narrative: Exam Narrative: General: Female sitting up in bedside chair eating lunch in no acute distress. HEENT: Normocephalic, EOMI, oral mucosa moist. Cardiovascular: Rate and rhythm are regular. Respiratory: Lungs clear to auscultation all patterson. Non-labored breathing. Abdomen: Soft, non-tender, non-distended, bowel sounds pres
[2019-09-25 14:00] VITALS: BP 134/69; PULSE 76; RESP 18; TEMP 37.4; O2SAT 100
[2019-09-25 16:30] LABS: Glucose Point of Care 233 (65-105)
[2019-09-25] MEDS: INSULIN ASPART (*BKC) 100 UNITS/ML SUB-Q (17:34)
[2019-09-25 20:00] VITALS: PULSE 70; RESP 18; O2SAT 100
[2019-09-25 20:21] LABS: Glucose Point of Care 268 (65-105)
[2019-09-25] MEDS: ATORVASTATIN 40 MG TABLET 80 MG PO (20:34)
[2019-09-25 20:35] VITALS: PULSE 70
[2019-09-25 22:00] VITALS: BP 139/50; PULSE 70; RESP 18; TEMP 37.4; O2SAT 100
[2019-09-26 04:19] LABS: SARS-CoV-2 RNA PCR Negative
[2019-09-26 04:52] LABS: Hematocrit 26.6 % (37.0-47.0); Hemoglobin 8.9 g/dL (12.0-15.0); Immature Granulocyte Absolute 0.04 K/mm3 (0.00-0.031); Immature Granulocyte Percent A 0.5 % (0-0.5); Lymphocytes Absolute Auto 0.32 K/mm3 (0.9-3.2); Lymphocytes Percent Auto 4.4 % (18.3-44.2); Mean Corpuscular HGB Conc 33.5 g/dl (32-36); Mean Corpuscular Hemoglobin 31.3 pg (26-34); Mean Corpuscular Volume 93.7 fl (80-100); Mean Platelet Volume 11.9 fl (7.4-10.4); Monocytes Absolute Auto 0.5 K/mm3 (0.1-0.6); Monocytes Percent Auto 6.1 % (2.6-8.5); Neutrophils Absolute Auto 6.5 K/mm3 (1.3-6.7); Platelet Count Result 227 k/mm3 (150-375); Red Blood Count 2.84 M/mm3 (4.2-5.4); Red Cell Distribution Width 13.2 % (11.5-14.5); White Blood Count 7.3 K/mm3 (4.5-10.0)
[2019-09-26 05:43] LABS: Blood Urea Nitrogen 37 mg/dL (7-17); Calcium 7.8 mg/dL (8.4-10.2); Carbon Dioxide 31 mmol/L (22-30); Chloride 98 mmol/L (98-107); Estimated CRCL calculation 30 ml/min; Estimated Glomerular Filt Rate 37; Glucose 212 mg/dL (65-105); Potassium 4.5 mmol/L (3.4-5.0); Sodium 132 mmol/L (137-145)
[2019-09-26] MEDS: LEVOTHYROXINE SODIUM 150 MCG TABLET PO (05:47)
[2019-09-26 06:00] VITALS: BP 153/53; PULSE 70; RESP 16; TEMP 37.8; O2SAT 100
[2019-09-26 06:51] LABS: Glucose Point of Care 221 (65-105)
[2019-09-26] MEDS: INSULIN ASPART (*BKC) 100 UNITS/ML SUB-Q ×3 (07:32→18:01)
[2019-09-26] MEDS: ISOSORBIDE MONONITRATE 60 MG TAB.ER.24H PO (11:09)
[2019-09-26] MEDS: metFORMIN HCL 500 MG TABLET PO ×2 (11:09→17:58)
[2019-09-26] MEDS: DEXAMETHASONE 4 MG TABLET PO (11:09)
[2019-09-26] MEDS: AMLODIPINE BESYLATE 5 MG TABLET 10 MG PO (11:09)
[2019-09-26] MEDS: ASPIRIN 81 MG CHEWABLE TABLET PO (11:09)
[2019-09-26 11:10] VITALS: PULSE 70
[2019-09-26] MEDS: PANTOPRAZOLE 40 MG TABLET PO ×2 (11:10→20:28)
[2019-09-26] MEDS: METOPROLOL TARTRATE 25 MG TABLET PO ×2 (11:10→20:28)
[2019-09-26] MEDS: PAROXETINE 10 MG TABLET PO (11:10)
--- NOTE | 2019-09-26 12:36 | PCDIET ---
Nutrition Follow-Up Complete: Nutrition Diagnosis: Suboptimal oral intake related to decreased appetite as evidenced by intakes 30-50%. Nutrition Goal: Patient to consume 50% of meals/supplements or greater. Goal met. Patient consumed average of 61% of meals since 09/22/19. Does not care for Thrive and would like to stop receiving it. Recommend continuing diabetic, minced and moist diet with mildly thick liquids and stopping Thrive supplement. Intake encouraged. Last recorded weight is 74.4 kg which is decreased. Bowel Motility: Last documented BM on 09/24/19. Labs Reviewed: Glu (212), BUN (37), Cr (1.4), Na (132) Meds Noted: Dexamethasone, Novolog, Lantus, Glucophage, Protonix Additional Notes: No documented pressure sores. Will continue to monitor with same goal. Nutrition Monitoring and Evaluation: Follow up in 7 days.
[2019-09-26 12:38] LABS: Glucose Point of Care 271 (65-105)
--- NOTE | 2019-09-26 13:07 | PM.IMPN ---
Progress Note: A&P Assessment and Plan (1) Recent cerebrovascular accident: Code(s): Z86.73 - Personal history of transient ischemic attack (TIA), and cerebral infarction without residual deficits Status: Acute Assessment and Plan: Was at [facility] and now currently undergoing rehab in [facility]. Worsening symptoms 09/18. Repeat scan showed worsening stroke with hemorrhagic transformation with a midline shift of 10 mm. Previously this shift was 4 mm. Previous provider spoke to a neurologist at [facility] who suggested that continuing dexamethasone and holding the Plavix for 7 days (today is day 7). Repeat MRI today showed decrease in edema and resolution of the midline shift compared to MRI 09/18. (2) Insulin dependent diabetes mellitus: Status: Chronic Assessment and Plan: Hgb A1c 8.6. Difficulty controlling blood sugars since started on Dexamethasone. Had hypoglycemia in days prior down to 30s, now back in 200s. Resume lantus; continue with metformin and cover with SSI. Continue accu-cheks ACHS. She has had diabetes for 40 years and says that she usually takes 7-10 units of Humalog with her meals as well as 36 units of long-acting insulin. Metformin was also started this stay. (3) Essential hypertension: Code(s): I10 - Essential (primary) hypertension Status: Chronic Assessment and Plan: Last . Continue home norvasc, imdur, and lopressor. (4) Coronary artery disease: Qualifiers: Associated angina: without angina Coronary Disease-Associated Artery/Lesion type: unspecified vessel or lesion type [place] vs. transplanted heart: unspecified whether [place] or transplanted heart Qualified Code(s): I25.10 - Atherosclerotic heart disease of [place] coronary artery without angina pectoris Code(s): I25.10 - Atherosclerotic heart disease of [place] coronary artery without angina pectoris Status: Chronic Assessment and Plan: Recently had PCI with stent to circumflex at [facility]. Stable, no chest pain. EKG NSR w/ chronic LBBB compared to prior EKGs 09/2013. Continue aspirin. (5) Hypothyroidism: Qualifiers: Hypothyroidism type: unspecified Qualified Code(s): E03.9 - Hypothyroidism, unspecified Code(s): E03.9 - Hypothyroidism, unspecified Status: Acute Assessment and Plan: Continue home levothyroxine. (6) Hyperlipidemia: Qualifiers: Hyperlipidemia type: unspecified Qualified Code(s): E78.5 - Hyperlipidemia, unspecified Code(s): E78.5 - Hyperlipidemia, unspecified Status: Acute Assessment and Plan: Maintained on home statin therapy, she is also on Repatha at home. Additional Plan Thank you for allowing us to participate in this patient's care. Please do not hesitate to contact us with any questions. We will follow with you. Subjective Date/time seen: 09/26/19 1145 Interval history: Ms. Call is a 78yo F in [facility] following a right-sided CVA we are seeing in follow up for management of several medical comorbidities. She is sitting up in bedside chair, doing well today and offers no complaints; working with speech therapy. She is tolerating oral intake without nausea or vomiting. Review of Systems Review of Systems: Narrative: Twelve systems were reviewed with pertinent positives and negatives as per HPI. Exam Narrative: Exam Narrative: General: Female sitting up in bedside chair eating lunch in no acute distress. HEENT: Normocephalic, EOMI, oral mucosa moist. Cardiovascular: Rate and rhythm are regular. Respiratory: Lungs clear to auscultation all patterson. Non-labored breathing. Abdomen: Soft, non-tender, non-distended, bowel sounds present. Extremities: Peripheral pulses intact. No edema. Neuro: Alert and oriented. Spee
[2019-09-26 14:00] VITALS: BP 139/54; PULSE 75; RESP 20; TEMP 37.1; O2SAT 100
--- NOTE | 2019-09-26 14:22 | WPDNEURORHBP ---
Subjective Date/time seen: 09/26/19 14:22 Interval history: this 78-year-old woman is here after having had a large ischemic stroke which transformed into hemorrhagic infarction with mass effect however she clinically and the both radiographically has significantly improved both by clinical examination by myself and also by the MRI report available for review from myself the patient denies any headache nausea vomiting chest pain shortness of breath fever chills or sore throat Review of Systems Review of Systems: All systems reviewed & are unremarkable except as noted in HPI and below Functional Status Ambulation Ability Ability to Ambulate 10 Feet: Contact Guard Ability to Ambulate 50 Feet With 2 Turns: Contact Guard Ability to Ambulate 150 Feet: Contact Guard Ambulation Assistive Devices: Walker, Wheeled Transfers Ability Ability to Transfer In/Out of Chair: Maximum Assistance X 1 Exam Const: General: comfortable and no acute distress HENMT: General nose exam: Normal nares present Mouth: Yes moist mucous membranes Eyes: General: appearance normal, both eyes and all related structures Other: visual field defect and neglect on the left side Neck: Neck: supple and no JVD Resp: Effort & Inspection: normal respiratory effort Auscultation: clear to auscultation bilaterally Cardio: Rate: regular rate Rhythm: regular rhythm GI: GI Palp: Yes Soft to palpation Auscultation: normal bowel sounds Skin: General skin exam: normal color and no rashes or lesions noted Neuro: Other: patient is awake and alert and well oriented time place person has normal speech and language functions the left-sided hemiparesis has significantly improved visual field defect remains stable and neglect remains stable Extrem: General: normal to inspection Psych: Mental Status: mental status grossly normal Objective Data Vital Signs Vital Signs: Vital Signs - 24 hr 09/25/19 20:00 09/25/19 20:35 09/25/19 22:00 Temperature 37.4 C Pulse Rate 70 70 70 Respiratory Rate 18 18 Blood Pressure 139/50 L Pulse Oximetry 100 100 09/26/19 06:00 09/26/19 11:10 Temperature 37.8 C H Pulse Rate 70 70 Respiratory Rate 16 Blood Pressure 153/53 H Pulse Oximetry 100 Intake/Output Intake/Output: Intake & Output 09/23/19 09/24/19 09/25/19 09/26/19 23:59 23:59 23:59 23:59 Intake Total 1080 480 720 240 Output Total 250 Balance 1080 480 470 240 Meds/Results Medications: Active Medications Generic Name Dose Route Start Last Admin Trade Name Freq PRN Reason Stop Dose Admin Amlodipine Besylate 10 mg 09/17/19 09:00 09/26/19 11:09 Norvasc PO 10 mg DAILY YAMILE Administration Aspirin 81 mg 09/12/19 09:00 09/26/19 11:09 Aspirin Chewable PO 81 mg DAILY YAMILE Administration Atorvastatin Calcium 80 mg 09/11/19 21:00 09/25/19 20:34 Lipitor PO 80 mg HS YAMILE Administration Clopidogrel Bisulfate 75 mg 09/12/19 09:00 09/19/19 09:00 Plavix PO 75 mg DAILY YAMILE Administration Dexamethasone 4 mg 09/23/19 21:00 09/26/19 11:09 Dexamethasone Po PO 4 mg Q12HR YAMILE Administration Dextrose 12.5 gm 09/11/19 16:27 Dextrose 50% Syringe IV PUSH PRN PRN Hypoglycemia Protocol Glucagon 1 mg 09/11/19 16:27 Glucagon For Inj IM PRN PRN Hypoglycemia Protocol Glucose 15 gm 09/11/19 16:27 09/25/19 00:22 Glutose 15 PO 15 gm PRN PRN Administration Hypoglycemia Protocol Dextrose 1,000 mls @ 100 mls/hr 09/11/19 16:27 Dextrose 5% 1,000 Ml IVPB PRN PRN Hypoglycemia Protocol Insulin Aspart 3 - 6 units 09/24/19 12:00 09/26/19 13:01 Novolog SUB-Q 4 units TIDWM YAMILE Administration Protocol Insulin Glargine 15 units 09/24/19 13:40 Lantus SUB-Q DAILY [facility] Isosorbide Mononitrate 60 mg 09/12/19 09:00 09/26/19 11:09 Imdur PO 60 mg DAILY YAMILE Administration Levothyroxine Sodium 150 mcg
[2019-09-26 18:18] LABS: Glucose Point of Care 249 (65-105)
[2019-09-26 20:00] VITALS: PULSE 79; RESP 18; O2SAT 100
[2019-09-26] MEDS: INSULIN GLARGINE (*BKC) 100 UNITS/ML 10 UNITS SUB-Q (20:27)
[2019-09-26 20:28] VITALS: PULSE 79
[2019-09-26] MEDS: ATORVASTATIN 40 MG TABLET 80 MG PO (20:28)
[2019-09-26 20:41] LABS: Glucose Point of Care 280 (65-105)
[2019-09-26 22:00] VITALS: BP 148/57; PULSE 79; RESP 18; TEMP 37.2; O2SAT 100
[2019-09-27 06:00] VITALS: BP 163/61; PULSE 71; RESP 18; TEMP 37.1; O2SAT 100
[2019-09-27] MEDS: LEVOTHYROXINE SODIUM 150 MCG TABLET PO (06:37)
[2019-09-27 06:55] LABS: Glucose Point of Care 183 (65-105)
[2019-09-27] MEDS: AMLODIPINE BESYLATE 5 MG TABLET 10 MG PO (09:41)
[2019-09-27] MEDS: DEXAMETHASONE 4 MG TABLET PO (09:41)
[2019-09-27] MEDS: ASPIRIN 81 MG CHEWABLE TABLET PO (09:41)
[2019-09-27] MEDS: ISOSORBIDE MONONITRATE 60 MG TAB.ER.24H PO (09:41)
[2019-09-27 09:42] VITALS: PULSE 71
[2019-09-27] MEDS: PAROXETINE 10 MG TABLET PO (09:42)
[2019-09-27] MEDS: PANTOPRAZOLE 40 MG TABLET PO ×2 (09:42→21:14)
[2019-09-27] MEDS: METOPROLOL TARTRATE 25 MG TABLET PO ×2 (09:42→21:13)
[2019-09-27] MEDS: metFORMIN HCL 500 MG TABLET PO (09:43)
[2019-09-27] MEDS: INSULIN ASPART (*BKC) 100 UNITS/ML SUB-Q ×2 (12:42→18:52)
[2019-09-27 12:59] LABS: Glucose Point of Care 239 (65-105)
[2019-09-27 14:00] VITALS: BP 136/58; PULSE 74; RESP 16; TEMP 37; O2SAT 100
--- NOTE | 2019-09-27 14:21 | PM.IMPN ---
Progress Note: A&P Assessment and Plan (1) Recent cerebrovascular accident: Code(s): Z86.73 - Personal history of transient ischemic attack (TIA), and cerebral infarction without residual deficits Status: Acute Assessment and Plan: Was at [facility] and now currently undergoing rehab in [facility]. Worsening symptoms 09/18. Repeat scan showed worsening stroke with hemorrhagic transformation with a midline shift of 10 mm. Previously this shift was 4 mm. Previous provider spoke to a neurologist at [facility] who suggested that continuing dexamethasone and holding the Plavix for 7 days. Plavix resumed today. Repeat MRI yesterday showed decrease in edema and resolution of the midline shift compared to MRI 09/18. (2) Insulin dependent diabetes mellitus: Status: Chronic Assessment and Plan: Hgb A1c 8.6. Difficulty controlling blood sugars since started on Dexamethasone. Had hypoglycemia in days prior down to 30s, now back in 200s. Resumed lantus; cover with SSI. Continue accu-cheks ACHS. Would like to cut back on the metformin since she was not on this previously at home. Will continue to adjust insulin regimen to compensate. She has had diabetes for 40 years and says that she usually takes 7-10 units of Humalog with her meals as well as 36 units of long-acting insulin. (3) Essential hypertension: Code(s): I10 - Essential (primary) hypertension Status: Chronic Assessment and Plan: Last . Continue home norvasc, imdur, and lopressor. (4) Coronary artery disease: Qualifiers: Coronary Disease-Associated Artery/Lesion type: unspecified vessel or lesion type [place] vs. transplanted heart: unspecified whether [place] or transplanted heart Associated angina: without angina Qualified Code(s): I25.10 - Atherosclerotic heart disease of [place] coronary artery without angina pectoris Code(s): I25.10 - Atherosclerotic heart disease of [place] coronary artery without angina pectoris Status: Chronic Assessment and Plan: Recently had PCI with stent to circumflex at [facility]. Stable, no chest pain. EKG NSR w/ chronic LBBB compared to prior EKGs 09/2013. Continue aspirin. (5) Hypothyroidism: Qualifiers: Hypothyroidism type: unspecified Qualified Code(s): E03.9 - Hypothyroidism, unspecified Code(s): E03.9 - Hypothyroidism, unspecified Status: Acute Assessment and Plan: Continue home levothyroxine. (6) Hyperlipidemia: Qualifiers: Hyperlipidemia type: unspecified Qualified Code(s): E78.5 - Hyperlipidemia, unspecified Code(s): E78.5 - Hyperlipidemia, unspecified Status: Acute Assessment and Plan: Maintained on home statin therapy, she is also on Repatha at home. Subjective Date/time seen: 09/27/19 1345 Interval history: Ms. Call is a 78yo F in [facility] following a right-sided CVA we are seeing in follow up for management of several medical comorbidities. She is sitting up in bedside chair, doing well today and offers no complaints; eating lunch and working with speech therapy. She is tolerating oral intake without nausea or vomiting. Review of Systems Review of Systems: Narrative: Twelve systems were reviewed with pertinent positives and negatives as per HPI. Exam Narrative: Exam Narrative: General: Female sitting up in bedside chair eating lunch in no acute distress. HEENT: Normocephalic, EOMI, oral mucosa moist. Cardiovascular: Rate and rhythm are regular. Respiratory: Lungs clear to auscultation all patterson. Non-labored breathing. Abdomen: Soft, non-tender, non-distended, bowel sounds present. Extremities: Peripheral pulses intact. No edema. Neuro: Alert and oriented. Speech is clear. Objective Data Vital Signs Vital Signs:
--- NOTE | 2019-09-27 14:37 | WPDNEURORHBP ---
Subjective Date/time seen: 09/27/19 14:37 Interval history: this is a 78-year-old woman is here after having had right hemispheric stroke with hemorrhagic transformation has done remarkably well and is going to finish a for [facility] soon as she is going to be placed in the extended care facility she denies any headache nausea vomiting chest pain shortness of breath fever chills or sore throat Review of Systems Review of Systems: All systems reviewed & are unremarkable except as noted in HPI and below Functional Status Ambulation Ability Ability to Ambulate 10 Feet: Standby Assistance Ability to Ambulate 50 Feet With 2 Turns: Standby Assistance Ability to Ambulate 150 Feet: Standby Assistance Ambulation Assistive Devices: Walker, Wheeled Transfers Ability Ability to Transfer In/Out of Chair: Contact Guard Exam Const: General: comfortable and no acute distress HENMT: General nose exam: Normal nares present Mouth: Yes moist mucous membranes Eyes: General: appearance normal, both eyes and all related structures Neck: Neck: supple and no JVD Resp: Effort & Inspection: normal respiratory effort Auscultation: clear to auscultation bilaterally Cardio: Rate: regular rate Rhythm: regular rhythm GI: GI Palp: Yes Soft to palpation Auscultation: normal bowel sounds Skin: General skin exam: normal color and no rashes or lesions noted Neuro: Other: patient is awake alert well oriented time place and person the visual field defect on the left side is about the same left-sided significant hemiparesis has improved and she is ambulatory but does have she carefully concerns as for as I am concerned and also the therapist concern because she tends to or might be falling on the left side not knowing exactly where she is she has been explained this and she understood it well Extrem: General: normal to inspection Psych: Mental Status: mental status grossly normal Objective Data Vital Signs Vital Signs: Vital Signs - 24 hr 09/27/19 21:13 09/27/19 22:00 09/28/19 06:00 Temperature 37.1 C 37.2 C Pulse Rate 74 72 68 Respiratory Rate 17 18 Blood Pressure 148/57 H 156/51 H Pulse Oximetry 100 100 09/28/19 09:51 09/28/19 09:53 Temperature Pulse Rate 76 76 Respiratory Rate 18 Blood Pressure 149/72 H Pulse Oximetry 99 Intake/Output Intake/Output: Intake & Output 09/25/19 09/26/19 09/27/1920 23:59 23:59 23:59 23:59 Intake Total 201 560 2063 360 Balance 698 816 6962 360 Meds/Results Medications: Active Medications Generic Name Dose Route Start Last Admin Trade Name Freq PRN Reason Stop Dose Admin Amlodipine Besylate 10 mg 09/17/19 09:00 09/28/19 09:53 Norvasc PO 10 mg DAILY YAMILE Administration Aspirin 81 mg 09/12/19 09:00 09/28/19 09:49 Aspirin Chewable PO 81 mg DAILY YAMILE Administration Atorvastatin Calcium 80 mg 09/11/19 21:00 09/27/19 21:13 Lipitor PO 80 mg HS YAMILE Administration Clopidogrel Bisulfate 75 mg 09/28/19 09:00 09/28/19 09:53 Plavix PO 75 mg QAM YAMILE Administration Dexamethasone 4 mg 09/27/19 09:00 09/28/19 09:52 Dexamethasone Po PO 4 mg DAILY YAMILE Administration Dextrose 12.5 gm 09/11/19 16:27 Dextrose 50% Syringe IV PUSH PRN PRN Hypoglycemia Protocol Glucagon 1 mg 09/11/19 16:27 Glucagon For Inj IM PRN PRN Hypoglycemia Protocol Glucose 15 gm 09/11/19 16:27 09/25/19 00:22 Glutose 15 PO 15 gm PRN PRN Administration Hypoglycemia Protocol Dextrose 1,000 mls @ 100 mls/hr 09/11/19 16:27 Dextrose 5% 1,000 Ml IVPB PRN PRN Hypoglycemia Protocol Insulin Aspart 3 - 6 units 09/24/19 12:00 09/28/19 12:16 Novolog SUB-Q Not Given [facility] Protocol Insulin Aspart 5 units 09/28/19 08:00 09/28/19 12:44 Novolog 0.067 units/kg (5 units) Not Given SUB-Q [facility] Insulin Glargine 10 units 09/26/19 21:00 09/27/19 21:
[2019-09-27 17:18] LABS: Glucose Point of Care 256 (65-105)
[2019-09-27 21:13] VITALS: PULSE 74
[2019-09-27] MEDS: ATORVASTATIN 40 MG TABLET 80 MG PO (21:13)
[2019-09-27] MEDS: INSULIN GLARGINE (*BKC) 100 UNITS/ML 10 UNITS SUB-Q (21:17)
[2019-09-27 22:00] VITALS: BP 148/57; PULSE 72; RESP 17; TEMP 37.1; O2SAT 100
[2019-09-28] VITALS (7 sets, daily range): BP systolic 127–156; BP diastolic 51–72; PULSE 68–80; RESP 18–19; TEMP 36.9–37.2; O2SAT 75–100
[2019-09-28 03:28] LABS: Glucose Point of Care 337 (65-105)
[2019-09-28] MEDS: LEVOTHYROXINE SODIUM 150 MCG TABLET PO (06:18)
[2019-09-28 06:36] LABS: Glucose Point of Care 116 (65-105)
--- NOTE | 2019-09-28 09:19 | PM.IMPN ---
Progress Note: A&P Assessment and Plan (1) Recent cerebrovascular accident: Code(s): Z86.73 - Personal history of transient ischemic attack (TIA), and cerebral infarction without residual deficits Status: Acute Assessment and Plan: Was at [facility] and now currently undergoing rehab in [facility]. Worsening symptoms 09/18 when repeat scan showed worsening stroke with hemorrhagic transformation with a midline shift of 10 mm. She has been treated with dexamethasone which is now tapered to once daily. Repeat MRI 09/25 showed decrease in edema and resolution of the midline shift compared to MRI 09/18. (2) Insulin dependent diabetes mellitus: Status: Chronic Assessment and Plan: Hgb A1c 8.6. Metformin was added earlier in the stay due to hyperglycemia related to steroids. Stopped metformin since she was not on this previously at home. Will continue to adjust insulin regimen to get closer to her previous home regimen. Today - continue 10 units lanuts qHS, continue SSI coverage and monitor accu-cheks. She has had diabetes for many years and says that she usually takes 7-10 units of Humalog with her meals as well as 36 units of long-acting insulin. (3) Essential hypertension: Code(s): I10 - Essential (primary) hypertension Status: Chronic Assessment and Plan: Last . Continue home norvasc, imdur, and lopressor. (4) Coronary artery disease: Qualifiers: Associated angina: without angina Coronary Disease-Associated Artery/Lesion type: unspecified vessel or lesion type [place] vs. transplanted heart: unspecified whether [place] or transplanted heart Qualified Code(s): I25.10 - Atherosclerotic heart disease of [place] coronary artery without angina pectoris Code(s): I25.10 - Atherosclerotic heart disease of [place] coronary artery without angina pectoris Status: Chronic Assessment and Plan: Recently had PCI with stent to circumflex at [facility]. Stable, no chest pain. EKG NSR w/ chronic LBBB compared to prior EKGs 09/2013. Continue aspirin. (5) Hypothyroidism: Qualifiers: Hypothyroidism type: unspecified Qualified Code(s): E03.9 - Hypothyroidism, unspecified Code(s): E03.9 - Hypothyroidism, unspecified Status: Acute Assessment and Plan: Continue home levothyroxine. (6) Hyperlipidemia: Qualifiers: Hyperlipidemia type: unspecified Qualified Code(s): E78.5 - Hyperlipidemia, unspecified Code(s): E78.5 - Hyperlipidemia, unspecified Status: Acute Assessment and Plan: Maintained on home statin therapy, she is also on Repatha at home. Additional Plan Thank you for allowing us to participate in this patient's care. Please do not hesitate to contact us with any questions. We will follow with you. Subjective Date/time seen: 09/28/19 09:00 Interval history: Ms. Call is a 78yo F in [facility] following a right-sided CVA we are seeing in follow up for management of several medical comorbidities. She is sitting up in bedside chair, doing well today and offers no complaints; working with speech therapy. She is tolerating oral intake without nausea or vomiting. She denies chest pain or shortness of breath. Review of Systems Review of Systems: Narrative: Twelve systems were reviewed with pertinent positives and negatives as per HPI. Exam Narrative: Exam Narrative: General: Female sitting up in bedside chair in no acute distress. HEENT: Normocephalic, EOMI, oral mucosa moist. Cardiovascular: Rate and rhythm are regular. Respiratory: Lungs clear to auscultation all patterson. Non-labored breathing. Abdomen: Soft, non-tender, non-distended, bowel sounds present. Extremities: Peripheral pulses intact. No edema. Neuro: Alert and oriented. Sp
[2019-09-28] MEDS: INSULIN ASPART (*BKC) 100 UNITS/ML SUB-Q ×2 (09:44→18:05)
[2019-09-28] MEDS: ASPIRIN 81 MG CHEWABLE TABLET PO (09:49)
[2019-09-28] MEDS: ISOSORBIDE MONONITRATE 60 MG TAB.ER.24H PO (09:52)
[2019-09-28] MEDS: PAROXETINE 10 MG TABLET PO (09:52)
[2019-09-28] MEDS: DEXAMETHASONE 4 MG TABLET PO (09:52)
[2019-09-28] MEDS: PANTOPRAZOLE 40 MG TABLET PO ×2 (09:52→20:14)
[2019-09-28] MEDS: CLOPIDOGREL BISULFATE 75 MG TABLET PO (09:53)
[2019-09-28] MEDS: AMLODIPINE BESYLATE 5 MG TABLET 10 MG PO (09:53)
[2019-09-28] MEDS: METOPROLOL TARTRATE 25 MG TABLET PO ×2 (09:53→20:14)
[2019-09-28 12:39] LABS: Glucose Point of Care 73 (65-105)
--- NOTE | 2019-09-28 16:25 | WPDNEURORHBP ---
Subjective Date/time seen: 09/28/19 16:25 Interval history: this 78-year-old woman has done remarkably well after having had a right hemispheric stroke with mass effect she is doing very well and will be discharged to an extended care facility early next week denies any headache nausea vomiting chest pain shortness of breath or any neurological symptoms which are new Review of Systems Review of Systems: All systems reviewed & are unremarkable except as noted in HPI and below Functional Status Ambulation Ability Ability to Ambulate 10 Feet: Standby Assistance Ability to Ambulate 50 Feet With 2 Turns: Standby Assistance Ability to Ambulate 150 Feet: Standby Assistance Ambulation Assistive Devices: Walker, Wheeled Transfers Ability Ability to Transfer In/Out of Chair: Contact Guard Exam Const: General: comfortable and no acute distress HENMT: General nose exam: Normal nares present Eyes: General: appearance normal, both eyes and all related structures Neck: Neck: supple and no JVD Resp: Effort & Inspection: normal respiratory effort Auscultation: clear to auscultation bilaterally Cardio: Rate: regular rate GI: GI Palp: Yes Soft to palpation Auscultation: normal bowel sounds Skin: General skin exam: normal color and no rashes or lesions noted Neuro: Other: patient is awake and alert well oriented time place and person cheerful and happy with left-sided visual field defect which is stable and improving left-sided hemiparesis Extrem: General: normal to inspection Psych: Mental Status: mental status grossly normal Objective Data Vital Signs Vital Signs: Vital Signs - 24 hr 09/27/19 21:13 09/27/19 22:00 09/28/19 06:00 Temperature 37.1 C 37.2 C Pulse Rate 74 72 68 Respiratory Rate 17 18 Blood Pressure 148/57 H 156/51 H Pulse Oximetry 100 100 09/28/19 09:51 09/28/19 09:53 09/28/19 14:00 Temperature 36.9 C Pulse Rate 76 76 74 Respiratory Rate 18 18 Blood Pressure 149/72 H 135/54 L Pulse Oximetry 99 100 Intake/Output Intake/Output: Intake & Output 09/25/19 09/26/19 09/27/19 09/28/19 23:59 23:59 23:59 23:59 Intake Total 363 596 7054 840 Balance 815 421 0471 840 Meds/Results Medications: Active Medications Generic Name Dose Route Start Last Admin Trade Name Freq PRN Reason Stop Dose Admin Amlodipine Besylate 10 mg 09/17/19 09:00 09/28/19 09:53 Norvasc PO 10 mg DAILY YAMILE Administration Aspirin 81 mg 09/12/19 09:00 09/28/19 09:49 Aspirin Chewable PO 81 mg DAILY YAMILE Administration Atorvastatin Calcium 80 mg 09/11/19 21:00 09/27/19 21:13 Lipitor PO 80 mg HS YAMILE Administration Clopidogrel Bisulfate 75 mg 09/28/19 09:00 09/28/19 09:53 Plavix PO 75 mg QAM YAMILE Administration Dexamethasone 4 mg 09/27/19 09:00 09/28/19 09:52 Dexamethasone Po PO 4 mg DAILY YAMILE Administration Dextrose 12.5 gm 09/11/19 16:27 Dextrose 50% Syringe IV PUSH PRN PRN Hypoglycemia Protocol Glucagon 1 mg 09/11/19 16:27 Glucagon For Inj IM PRN PRN Hypoglycemia Protocol Glucose 15 gm 09/11/19 16:27 09/25/19 00:22 Glutose 15 PO 15 gm PRN PRN Administration Hypoglycemia Protocol Dextrose 1,000 mls @ 100 mls/hr 09/11/19 16:27 Dextrose 5% 1,000 Ml IVPB PRN PRN Hypoglycemia Protocol Insulin Aspart 3 - 6 units 09/24/19 12:00 09/28/19 12:16 Novolog SUB-Q Not Given TIDWM [facility] Protocol Insulin Aspart 5 units 09/28/19 08:00 09/28/19 12:44 Novolog 0.067 units/kg (5 units) Not Given SUB-Q TIDWM [facility] Insulin Glargine 10 units 09/26/19 21:00 09/27/19 21:17 Lantus SUB-Q 10 units HS [facility] Administration Isosorbide Mononitrate 60 mg 09/12/19 09:00 09/28/19 09:52 Imdur PO 60 mg DAILY YAMILE Administration Levothyroxine Sodium 150 mcg 09/12/19 06:30 09/28/19 06:18 Synthroid PO 150 mcg 0630 YAMILE Administration Metoprolol
[2019-09-28 16:55] LABS: Glucose Point of Care 204 (65-105)
[2019-09-28 20:14] LABS: Glucose Point of Care 273 (65-105)
[2019-09-28] MEDS: ATORVASTATIN 40 MG TABLET 80 MG PO (20:14)
[2019-09-28] MEDS: INSULIN GLARGINE (*BKC) 100 UNITS/ML 10 UNITS SUB-Q (20:17)
[2019-09-29 06:00] VITALS: BP 149/61; PULSE 73; RESP 17; TEMP 37.4; O2SAT 100
[2019-09-29] MEDS: LEVOTHYROXINE SODIUM 150 MCG TABLET PO (06:34)
[2019-09-29 06:49] LABS: Glucose Point of Care 149 (65-105)
[2019-09-29 08:36] VITALS: PULSE 73
[2019-09-29] MEDS: METOPROLOL TARTRATE 25 MG TABLET PO ×2 (08:36→20:14)
[2019-09-29] MEDS: DEXAMETHASONE 4 MG TABLET PO (08:36)
[2019-09-29] MEDS: PAROXETINE 10 MG TABLET PO (08:36)
[2019-09-29] MEDS: AMLODIPINE BESYLATE 5 MG TABLET 10 MG PO (08:36)
[2019-09-29] MEDS: ISOSORBIDE MONONITRATE 60 MG TAB.ER.24H PO (08:36)
[2019-09-29] MEDS: PANTOPRAZOLE 40 MG TABLET PO ×2 (08:36→20:15)
[2019-09-29] MEDS: CLOPIDOGREL BISULFATE 75 MG TABLET PO (08:36)
[2019-09-29] MEDS: ASPIRIN 81 MG CHEWABLE TABLET PO (08:37)
--- NOTE | 2019-09-29 09:16 | PM.IMPN ---
Progress Note: A&P Assessment and Plan (1) Recent cerebrovascular accident: Code(s): Z86.73 - Personal history of transient ischemic attack (TIA), and cerebral infarction without residual deficits Status: Acute Assessment and Plan: Was at [facility] and now currently undergoing rehab in [facility]. Worsening symptoms 09/18 when repeat scan showed worsening stroke with hemorrhagic transformation with a midline shift of 10 mm. She has been treated with dexamethasone which is now tapered to once daily. Repeat MRI 09/25 showed decrease in edema and resolution of the midline shift compared to MRI 09/18. (2) Insulin dependent diabetes mellitus: Status: Chronic Assessment and Plan: Hgb A1c 8.6. Metformin was added earlier in the stay due to hyperglycemia related to steroids.Stopped metformin since she was not on this previously at home. Will continue to adjust insulin regimen to get closer to her previous home regimen. Today - continue 10 units lanuts qHS, continue SSI coverage and monitor accu-cheks. BG 149 this AM. She has had diabetes for many years and says that she usually takes 7-10 units of Humalog with her meals as well as 36 units of long-acting insulin. (3) Essential hypertension: Code(s): I10 - Essential (primary) hypertension Status: Chronic Assessment and Plan: Last 149/61. Continue home norvasc, imdur, and lopressor. (4) Coronary artery disease: Qualifiers: Associated angina: without angina Coronary Disease-Associated Artery/Lesion type: unspecified vessel or lesion type [place] vs. transplanted heart: unspecified whether [place] or transplanted heart Qualified Code(s): I25.10 - Atherosclerotic heart disease of [place] coronary artery without angina pectoris Code(s): I25.10 - Atherosclerotic heart disease of [place] coronary artery without angina pectoris Status: Chronic Assessment and Plan: Recently had PCI with stent to circumflex at [facility]. Stable, no chest pain. EKG NSR w/ chronic LBBB compared to prior EKGs 09/2013. Continue aspirin. Plavix resumed. (5) Hypothyroidism: Qualifiers: Hypothyroidism type: unspecified Qualified Code(s): E03.9 - Hypothyroidism, unspecified Code(s): E03.9 - Hypothyroidism, unspecified Status: Acute Assessment and Plan: Continue home levothyroxine. (6) Hyperlipidemia: Qualifiers: Hyperlipidemia type: unspecified Qualified Code(s): E78.5 - Hyperlipidemia, unspecified Code(s): E78.5 - Hyperlipidemia, unspecified Status: Acute Assessment and Plan: Maintained on home statin therapy, she is also on Repatha at home. Additional Plan Thank you for allowing us to participate in this patient's care. Please do not hesitate to contact us with any questions. We will follow with you. Subjective Date/time seen: 09/29/19 0840 Interval history: Ms. Call is a 78yo F in [facility] following a right-sided CVA we are seeing in follow up for management of several medical comorbidities. She is doing very well. She offers no complaints; working on some problem-solving activities with therapy. She is tolerating oral intake without nausea or vomiting. She denies chest pain or shortness of breath. Review of Systems Review of Systems: Narrative: Twelve systems were reviewed with pertinent positives and negatives as per HPI. Exam Narrative: Exam Narrative: General: Female sitting up in bedside chair in no acute distress. HEENT: Normocephalic, EOMI, oral mucosa moist. Cardiovascular: Rate and rhythm are regular. Respiratory: Lungs clear to auscultation all patterson. Non-labored breathing. Abdomen: Soft, non-tender, non-distended, bowel sounds present. Extremities: Peripheral pulses intact. No edema. Neur
[2019-09-29 11:36] LABS: Glucose Point of Care 229 (65-105)
[2019-09-29] MEDS: INSULIN ASPART (*BKC) 100 UNITS/ML SUB-Q ×2 (12:22→17:08)
--- NOTE | 2019-09-29 12:55 | WPDNEURORHBP ---
Subjective Date/time seen: 0Right hemispheric stroke with left hemiparesis,secondary mass effect though decreasing cytotoxic edema,sendary hemmorhage clearing righ to left shift improving Review of Systems Review of Systems: All systems reviewed & are unremarkable except as noted in HPI and below Functional Status Ambulation Ability Ability to Ambulate 10 Feet: Standby Assistance Ability to Ambulate 50 Feet With 2 Turns: Standby Assistance Ability to Ambulate 150 Feet: Standby Assistance Ambulation Assistive Devices: Walker, Wheeled Transfers Ability Ability to Transfer In/Out of Chair: Contact Guard Exam Const: General: comfortable and no acute distress Eyes: General: appearance normal, both eyes and all related structures Neck: Neck: full ROM Resp: Auscultation: clear to auscultation bilaterally Cardio: Rate: regular rate Rhythm: regular rhythm GI: Auscultation: normal bowel sounds Skin: General skin exam: no rashes or lesions noted Neuro: General: patient oriented x3 and moves all extremities Cranial nerves: Yes Equal, round and reactive pupils present, Yes Bilaterally intact EOM present, Yes Nystagmus not present, Yes Midline tongue present, Yes Ability to bilaterally elevate shoulders present and Yes Other cranial nerve findings present (LVFC) Cognition (Neuro): normal cognition Speech: normal speech Motor exam (neuro): Abnormal motor strength present Sensory Exam: Sensory deficit (Neuro) Deep tendon reflexes (DTR's): Right triceps reflex intensity grade: 1+, Left triceps reflex intensity grade: 2+, Rt Biceps (C5, C6): 1+, Left biceps reflex intensity grade: 2+, Right brachioradialis reflex intensity grade: 1+, Left brachioradialis reflex intensity grade: 2+, Right patellar reflex intensity grade: 1+, Left patellar reflex intensity grade: 2+, Right ankle reflex intensity grade: 1+ and Left ankle reflex intensity grade: 2+ Plantar Reflex Responses: downgoing: right and upgoing (positive Babinski): left Psych: Appearance: grossly normal Objective Data Vital Signs Vital Signs: Vital Signs - 24 hr 09/28/19 14:00 09/28/19 20:14 09/28/19 22:00 Temperature 36.9 C 37.1 C Pulse Rate 74 80 71 Respiratory Rate 18 19 Blood Pressure 135/54 L 127/54 L Pulse Oximetry 100 100 09/29/19 06:00 09/29/19 08:36 Temperature 37.4 C Pulse Rate 73 73 Respiratory Rate 17 Blood Pressure 149/61 H Pulse Oximetry 100 Intake/Output Intake/Output: Intake & Output 09/26/19 09/27/19 09/28/19 09/29/19 23:59 23:59 23:59 23:59 Intake Total 720 1320 1080 Balance 720 1320 1080 Meds/Results Medications: Active Medications Generic Name Dose Route Start Last Admin Trade Name Freq PRN Reason Stop Dose Admin Amlodipine Besylate 10 mg 09/17/19 09:00 09/29/19 08:36 Norvasc PO 10 mg DAILY YAMILE Administration Aspirin 81 mg 09/12/19 09:00 09/29/19 08:37 Aspirin Chewable PO 81 mg DAILY YAMILE Administration Atorvastatin Calcium 80 mg 09/11/19 21:00 09/28/19 20:14 Lipitor PO 80 mg HS YAMILE Administration Clopidogrel Bisulfate 75 mg 09/28/19 09:00 09/29/19 08:36 Plavix PO 75 mg QAM YAMILE Administration Dexamethasone 4 mg 09/27/19 09:00 09/29/19 08:36 Dexamethasone Po PO 4 mg DAILY YAMILE Administration Dextrose 12.5 gm 09/11/19 16:27 Dextrose 50% Syringe IV PUSH PRN PRN Hypoglycemia Protocol Glucagon 1 mg 09/11/19 16:27 Glucagon For Inj IM PRN PRN Hypoglycemia Protocol Glucose 15 gm 09/11/19 16:27 09/25/19 00:22 Glutose 15 PO 15 gm PRN PRN Administration Hypoglycemia Protocol Dextrose 1,000 mls @ 100 mls/hr 09/11/19 16:27 Dextrose 5% 1,000 Ml IVPB PRN PRN Hypoglycemia Protocol Insulin Aspart 3 - 6 units 09/24/19 12:00 09/29/19 12:22 Novolog SUB-Q 3 units TIDWM YAMILE Administration Protocol Insulin Aspart 5 units 09/28/19 08:00 09/28/19 12:44 Novolog 0.067 un
[2019-09-29 14:00] VITALS: BP 152/68; PULSE 74; RESP 18; TEMP 36.8; O2SAT 98
[2019-09-29 17:11] LABS: Glucose Point of Care 361 (65-105)
[2019-09-29 20:14] VITALS: PULSE 78
[2019-09-29] MEDS: ATORVASTATIN 40 MG TABLET 80 MG PO (20:15)
[2019-09-29 20:26] LABS: Glucose Point of Care 410 (65-105)
[2019-09-29] MEDS: INSULIN GLARGINE (*BKC) 100 UNITS/ML 15 UNITS SUB-Q (20:53)
[2019-09-29 22:00] VITALS: BP 130/57; PULSE 74; RESP 16; TEMP 37.2; O2SAT 100
[2019-09-30] VITALS (7 sets, daily range): BP systolic 140–145; BP diastolic 52–65; PULSE 62–80; RESP 18; TEMP 36.4–36.9; O2SAT 20–100
[2019-09-30] MEDS: LEVOTHYROXINE SODIUM 150 MCG TABLET PO (06:00)
[2019-09-30 06:26] LABS: Glucose Point of Care 207 (65-105)
[2019-09-30] MEDS: INSULIN ASPART (*BKC) 100 UNITS/ML SUB-Q ×2 (07:24→16:45)
[2019-09-30] MEDS: AMLODIPINE BESYLATE 5 MG TABLET 10 MG PO (08:30)
[2019-09-30] MEDS: ISOSORBIDE MONONITRATE 60 MG TAB.ER.24H PO (08:30)
[2019-09-30] MEDS: PANTOPRAZOLE 40 MG TABLET PO (08:30)
[2019-09-30] MEDS: DEXAMETHASONE 4 MG TABLET PO (08:30)
[2019-09-30] MEDS: PAROXETINE 10 MG TABLET PO (08:30)
[2019-09-30] MEDS: CLOPIDOGREL BISULFATE 75 MG TABLET PO (08:30)
[2019-09-30] MEDS: ASPIRIN 81 MG CHEWABLE TABLET PO (08:31)
[2019-09-30] MEDS: METOPROLOL TARTRATE 25 MG TABLET PO ×2 (08:31→20:26)
--- NOTE | 2019-09-30 10:07 | P.PNIM_ITS ---
Progress Note: A&P Assessment and Plan (1) Recent cerebrovascular accident: Code(s): Z86.73 - Personal history of transient ischemic attack (TIA), and cerebral infarction without residual deficits Status: Acute Assessment and Plan: * Was at [facility] and now currently undergoing rehab in [facility]. Worsening symptoms 09/18 when repeat scan showed worsening stroke with hemorrhagic transformation with a midline shift of 10 mm. She has been treated with dexamethasone which is now tapered to once daily. * Repeat MRI 09/25 showed decrease in edema and resolution of the midline shift compared to MRI 09/18. (2) Insulin dependent diabetes mellitus: Status: Chronic Assessment and Plan: * Hgb A1c 8.6. Brittle diabetes and blood glucose levels are quite variable. BGs up to 410 last night and Lantus was increased. Glucose 207 this AM and got 3 units, now down to 56 this afternoon before lunch. * Today - continue 15 units lanuts qHS, continue SSI; monitor accu-cheks. I will adjust discharge medications and instructions for tomorrow after monit oring today's blood sugars. * She has had diabetes for many years and says that she usually takes 7-10 units of Humalog with her meals as well as 36 units of long-acting insulin. (3) Essential hypertension: Code(s): I10 - Essential (primary) hypertension Status: Chronic Assessment and Plan: * Last . Continue home norvasc, imdur, and lopressor. * Home norvasc was increased during this stay. (4) Coronary artery disease: Qualifiers: Associated angina: without angina Coronary Disease-Associated Artery/Lesion type: unspecified vessel or lesion type [place] vs. transplanted heart: unspecified whether [place] or transplanted heart Qualified Code(s): I25.10 - Atherosclerotic heart disease of [place] coronary artery without angina pectoris Code(s): I25.10 - Atherosclerotic heart disease of [place] coronary artery without angina pectoris Status: Chronic Assessment and Plan: * Recently had PCI with stent to circumflex at [facility]. Stable, no chest pain. EKG NSR w/ chronic LBBB compared to prior EKGs 09/2013. * Continue aspirin. Plavix resumed. (5) Hypothyroidism: Qualifiers: Hypothyroidism type: unspecified Qualified Code(s): E03.9 - Hypothyroidism, unspecified Code(s): E03.9 - Hypothyroidism, unspecified Status: Acute Assessment and Plan: * Continue home levothyroxine. (6) Hyperlipidemia: Qualifiers: Hyperlipidemia type: unspecified Qualified Code(s): E78.5 - Hyperli pidemia, unspecified Code(s): E78.5 - Hyperlipidemia, unspecified Status: Acute Assessment and Plan: * Maintained on home statin therapy, she is also on Repatha at home. Additional Plan Thank you for allowing us to participate in this patient's care. Please do not hesitate to contact us with any questions. We will follow with you. Subjective Date/time seen: 09/30/19 0945 Interval history: Ms. Call is a 78yo F in [facility] following a right-sided CVA we are seeing in follow up for management of several medical comorbidities. She is doing very well; plan is for discharge tomorrow. She offers no complaints. She is tolerating oral intake without nausea or vomiting. She denies chest pain, shortness of breath or coughing. COVID negative 09/25/19 (screened for dc purposes). Review of Systems Revie
--- NOTE | 2019-09-30 10:07 | PM.IMPN ---
Progress Note: A&P Assessment and Plan (1) Recent cerebrovascular accident: Code(s): Z86.73 - Personal history of transient ischemic attack (TIA), and cerebral infarction without residual deficits Status: Acute Assessment and Plan: Was at [facility] and now currently undergoing rehab in [facility]. Worsening symptoms 09/18 when repeat scan showed worsening stroke with hemorrhagic transformation with a midline shift of 10 mm. She has been treated with dexamethasone which is now tapered to once daily. Repeat MRI 09/25 showed decrease in edema and resolution of the midline shift compared to MRI 09/18. (2) Insulin dependent diabetes mellitus: Status: Chronic Assessment and Plan: Hgb A1c 8.6. Brittle diabetes and blood glucose levels are quite variable. BGs up to 410 last night and Lantus was increased. Glucose 207 this AM and got 3 units, now down to 56 this afternoon before lunch. Today - continue 15 units lanuts qHS, continue SSI; monitor accu-cheks. I will adjust discharge medications and instructions for tomorrow after monitoring today's blood sugars. She has had diabetes for many years and says that she usually takes 7-10 units of Humalog with her meals as well as 36 units of long-acting insulin. (3) Essential hypertension: Code(s): I10 - Essential (primary) hypertension Status: Chronic Assessment and Plan: Last . Continue home norvasc, imdur, and lopressor. Home norvasc was increased during this stay. (4) Coronary artery disease: Qualifiers: Associated angina: without angina Coronary Disease-Associated Artery/Lesion type: unspecified vessel or lesion type [place] vs. transplanted heart: unspecified whether [place] or transplanted heart Qualified Code(s): I25.10 - Atherosclerotic heart disease of [place] coronary artery without angina pectoris Code(s): I25.10 - Atherosclerotic heart disease of [place] coronary artery without angina pectoris Status: Chronic Assessment and Plan: Recently had PCI with stent to circumflex at [facility]. Stable, no chest pain. EKG NSR w/ chronic LBBB compared to prior EKGs 09/2013. Continue aspirin. Plavix resumed. (5) Hypothyroidism: Qualifiers: Hypothyroidism type: unspecified Qualified Code(s): E03.9 - Hypothyroidism, unspecified Code(s): E03.9 - Hypothyroidism, unspecified Status: Acute Assessment and Plan: Continue home levothyroxine. (6) Hyperlipidemia: Qualifiers: Hyperlipidemia type: unspecified Qualified Code(s): E78.5 - Hyperlipidemia, unspecified Code(s): E78.5 - Hyperlipidemia, unspecified Status: Acute Assessment and Plan: Maintained on home statin therapy, she is also on Repatha at home. Additional Plan Thank you for allowing us to participate in this patient's care. Please do not hesitate to contact us with any questions. We will follow with you. Subjective Date/time seen: 09/30/19 0945 Interval history: Ms. Call is a 78yo F in [facility] following a right-sided CVA we are seeing in follow up for management of several medical comorbidities. She is doing very well; plan is for discharge tomorrow. She offers no complaints. She is tolerating oral intake without nausea or vomiting. She denies chest pain, shortness of breath or coughing. COVID negative 09/25/19 (screened for dc purposes). Review of Systems Review of Systems: Narrative: Twelve systems were reviewed with pertinent positives and negatives as per HPI. Exam Narrative: Exam Narrative: General: Female sitting up in bedside chair in no acute distress. HEENT: Normocephalic, EOMI, oral mucosa moist. Cardiovascular: Rate and rhythm are regular. Respiratory: Lungs clear to auscultation all patterson. Non-labored francis
[2019-09-30 11:34] LABS: Glucose Point of Care 56 (65-105)
--- NOTE | 2019-09-30 11:34 | PC.NURSE ---
pt blood glucose checked at this time. Pt blood glucose 56. pt did not want the glucose gel. she stated that did not taste good and requested juice. call placed to Enriqueta with the hospitalist group. awaiting call back at this time.
--- NOTE | 2019-09-30 11:42 | PC.NURSE ---
Enriqueta from hospitalist group returned call. no insulin to be given with lunch. patient drank juice. rechecking blood glucose in 15 minutes. will continue to monitor.
[2019-09-30 12:08] LABS: Glucose Point of Care 115 (65-105)
[2019-09-30 17:06] LABS: Glucose Point of Care 233 (65-105)
[2019-09-30] MEDS: ATORVASTATIN 40 MG TABLET 80 MG PO (20:27)
[2019-09-30] MEDS: INSULIN GLARGINE (*BKC) 100 UNITS/ML 15 UNITS SUB-Q (20:28)
[2019-09-30 21:41] LABS: Glucose Point of Care 305 (65-105)
[2019-10-01] MEDS: PANTOPRAZOLE 40 MG TABLET PO ×2 (00:15→08:19)
[2019-10-01 03:38] LABS: Glucose Point of Care 122 (65-105)
[2019-10-01 06:00] VITALS: BP 139/85; PULSE 65; RESP 18; TEMP 36.4; O2SAT 100
[2019-10-01 06:43] LABS: Glucose Point of Care 70 (65-105)
[2019-10-01] MEDS: LEVOTHYROXINE SODIUM 150 MCG TABLET PO (06:43)
[2019-10-01 07:17] LABS: Glucose Point of Care 64 (65-105)
[2019-10-01 08:19] VITALS: PULSE 65
[2019-10-01] MEDS: AMLODIPINE BESYLATE 5 MG TABLET 10 MG PO (08:19)
[2019-10-01] MEDS: METOPROLOL TARTRATE 25 MG TABLET PO (08:19)
[2019-10-01] MEDS: ASPIRIN 81 MG CHEWABLE TABLET PO (08:19)
[2019-10-01] MEDS: DEXAMETHASONE 4 MG TABLET PO (08:19)
[2019-10-01] MEDS: PAROXETINE 10 MG TABLET PO (08:19)
[2019-10-01] MEDS: ISOSORBIDE MONONITRATE 60 MG TAB.ER.24H PO (08:19)
[2019-10-01] MEDS: CLOPIDOGREL BISULFATE 75 MG TABLET PO (08:19)
[2019-10-01 11:30] LABS: Glucose Point of Care 150 (65-105)
--- NOTE | 2019-10-01 15:40 | P.PNIM_ITS ---
Progress Note: A&P Assessment and Plan (1) Recent cerebrovascular accident: Code(s): Z86.73 - Personal history of transient ischemic attack (TIA), and cerebral infarction without residual deficits Status: Acute Assessment and Plan: * Was at [facility] and now currently undergoing rehab in [facility]. Worsening symptoms 09/18 when repeat scan showed worsening stroke with hemorrhagic transformation with a midline shift of 10 mm. She has been treated with dexamethasone which is now tapered to once daily. * Repeat MRI 09/25 showed decrease in edema and resolution of the midline shift compared to MRI 09/18. * Discharge today to [facility]. (2) Insulin dependent diabetes mellitus: Status: Chronic Assessment and Plan: * Hgb A1c 8.6. Brittle diabetes and blood glucose levels are quite variable.Will need close glucose monitoring at swing bed * Discharge recommendations - 10 units lanuts qHS plus low dose sliding scale coverage; monitor accu-cheks. (3) Essential hypertension: Code(s): I10 - Essential (primary) hypertension Status: Chronic Assessment and Plan: * Stable at 139/85 before discharge. Continue home norvasc, imdur, and lopressor. * Home norvasc was increased during this stay. (4) Coronary artery disease: Qualifiers: Coronary Disease-Associated Artery/Lesion type: unspecified vessel or lesion type [place] vs. transplanted heart: unspecified whether [place] or transplanted heart Associated angina: without angina Qualified Code(s): I25.10 - Atherosclerotic heart disease of [place] coronary artery without angina pectoris Code(s): I25.10 - Atherosclerotic heart disease of [place] coronary artery without angina pectoris Status: Chronic Assessment and Plan: * Recently had PCI with stent to circumflex at [facility]. Stable, no chest pain. EKG NSR w/ chronic LBBB compared to prior EKGs 09/2013. * Continue aspirin. Plavix resumed. (5) Hypothyroidism: Qualifiers: Hypothyroidism type: unspecified Qualified Code(s): E03.9 - Hypothyroidism, unspecified Code(s): E03.9 - Hypothyroidism, unspecified Status: Acute Assessment and Plan: * Continue home levothyroxine. (6) Hyperlipidemia: Qualifiers: Hyperlipidemia type: unspecified Qualified Code(s): E78.5 - Hyperlipidemia, unspecified Code(s): E78.5 - Hyperlipidemia, unspecified Status: Acute Assessment and Plan: * Maintained on home statin therapy, she is also on Repatha at home. Subjective Date/time seen: 10/01/19 0930 Interval history: Ms. Call is a 78yo F in [facility] following a right-sided CVA we are seeing in follow up for management of several medical comorbidities. She is doing very well; discharging today. She offers no complaints. She is tolerating oral intake without nausea or vomiting. She denies chest pain, shortness of breath or coughing. COVID negative 09/25/19 (screened for dc purposes). Review of Systems Review of Systems: Narrative: Twelve systems were reviewed with pertinent positives and negatives as per HPI. Exam Narrative: Exam Narrative: General: Female sitting up in bedside chair in no acute distress. HEENT: Normocephalic, EOMI, oral mucosa moist. Cardiovascular: Rate and rhythm are regular. Respiratory: Lungs clear to auscultation all patterson. Non-labored breathing. Abdomen: Soft
--- NOTE | 2019-10-01 15:40 | PM.IMPN ---
Progress Note: A&P Assessment and Plan (1) Recent cerebrovascular accident: Code(s): Z86.73 - Personal history of transient ischemic attack (TIA), and cerebral infarction without residual deficits Status: Acute Assessment and Plan: Was at [facility] and now currently undergoing rehab in [facility]. Worsening symptoms 09/18 when repeat scan showed worsening stroke with hemorrhagic transformation with a midline shift of 10 mm. She has been treated with dexamethasone which is now tapered to once daily. Repeat MRI 09/25 showed decrease in edema and resolution of the midline shift compared to MRI 09/18. Discharge today to [facility]. (2) Insulin dependent diabetes mellitus: Status: Chronic Assessment and Plan: Hgb A1c 8.6. Brittle diabetes and blood glucose levels are quite variable.Will need close glucose monitoring at swing bed Discharge recommendations - 10 units lanuts qHS plus low dose sliding scale coverage; monitor accu-cheks. (3) Essential hypertension: Code(s): I10 - Essential (primary) hypertension Status: Chronic Assessment and Plan: Stable at 139/85 before discharge. Continue home norvasc, imdur, and lopressor. Home norvasc was increased during this stay. (4) Coronary artery disease: Qualifiers: Coronary Disease-Associated Artery/Lesion type: unspecified vessel or lesion type [place] vs. transplanted heart: unspecified whether [place] or transplanted heart Associated angina: without angina Qualified Code(s): I25.10 - Atherosclerotic heart disease of [place] coronary artery without angina pectoris Code(s): I25.10 - Atherosclerotic heart disease of [place] coronary artery without angina pectoris Status: Chronic Assessment and Plan: Recently had PCI with stent to circumflex at [facility]. Stable, no chest pain. EKG NSR w/ chronic LBBB compared to prior EKGs 09/2013. Continue aspirin. Plavix resumed. (5) Hypothyroidism: Qualifiers: Hypothyroidism type: unspecified Qualified Code(s): E03.9 - Hypothyroidism, unspecified Code(s): E03.9 - Hypothyroidism, unspecified Status: Acute Assessment and Plan: Continue home levothyroxine. (6) Hyperlipidemia: Qualifiers: Hyperlipidemia type: unspecified Qualified Code(s): E78.5 - Hyperlipidemia, unspecified Code(s): E78.5 - Hyperlipidemia, unspecified Status: Acute Assessment and Plan: Maintained on home statin therapy, she is also on Repatha at home. Subjective Date/time seen: 10/01/19 0930 Interval history: Ms. Call is a 78yo F in [facility] following a right-sided CVA we are seeing in follow up for management of several medical comorbidities. She is doing very well; discharging today. She offers no complaints. She is tolerating oral intake without nausea or vomiting. She denies chest pain, shortness of breath or coughing. COVID negative 09/25/19 (screened for dc purposes). Review of Systems Review of Systems: Narrative: Twelve systems were reviewed with pertinent positives and negatives as per HPI. Exam Narrative: Exam Narrative: General: Female sitting up in bedside chair in no acute distress. HEENT: Normocephalic, EOMI, oral mucosa moist. Cardiovascular: Rate and rhythm are regular. Respiratory: Lungs clear to auscultation all patterson. Non-labored breathing. Abdomen: Soft, non-tender, non-distended, bowel sounds present. Extremities: Peripheral pulses intact. No edema. Neuro: Alert and oriented. Speech is clear. Objective Data Vital Signs Vital Signs: Vital Signs - 24 hr 09/30/19 20:00 09/30/19 20:26 09/30/19 22:00 Temperature 98.5 F Pulse Rate 62 70 62 Respiratory Rate 18 18 Blood Pressure 140/60 Pulse Oximetry 100 100 10/01/19 06:00 0
--- NOTE | 2019-10-06 05:58 | DS_ITS ---
DATE OF DISCHARGE: 10/01/2019 DISCHARGE ACUTE REHAB DIAGNOSIS: Primary rehab impairment category of stroke with etiological diagnosis of acute right middle cerebral artery involvement. DISCHARGE ACTIVE COMORBID CONDITIONS: 1. Diabetes mellitus. 2. Hypertension. 3. Coronary artery disease with history of myocardial infarction and congestive heart failure. 4. Chronic insufficiency. 5. Hyperlipidemia. 6. Hypothyroidism. 7. Depression. REASON FOR ADMISSION: A 78-year-old right-handed female presented to [facility] on 08/30/2019, with left-sided weakness along with the slurred speech. The patient was reportedly clearing her yard, then she had sudden onset of severe midsternal chest discomfort and shortness of breath, which subsided subsequently when she rested. She called a friend later and when she was unable to get up and taken to [facility], she was brought to the emergency room. TPA was not administered as she was outside the window for tPA. [facility]. A CTA revealed right M2 thrombosis with no carotid stenosis. CT of the cerebral perfusion scan demonstrated moderate core infarction with moderate surrounding of penumbra in the right middle cerebral artery distribution. She was admitted to the hospital with the diagnosis of right middle cerebral artery stroke with atx-HM-strguonh myocardial infarction. Repeat CT of the head on 09/01 revealed contrast staining of the large right middle cerebral artery distribution infarct with the right temporal, insular, frontal, and parietal lobes involving also with [id number] 4 mm midline shift and increasing mass effect. Neurologists were consulted who allowed the permissive hypertension. Continue on the statin therapy. Started aspirin and Plavix. A loop recorder was placed to rule out the possibility of atrial fibrillation. Echocardiogram documented abnormalities and cardiac catheterization was also scheduled, which documented critical 3-vessel coronary artery disease with de valeriy stenosis of the ostium circumflex branch, patent two of the two bypass graft of the distal circumferential right coronary artery. Ejection fraction of 50% with moderate mitral regurgitation. Successful percutaneous coronary intervention was performed with implantation of 2.5 x 12 mm drug-eluting stent in the ostium of circumflex branch. Nephrology was consulted on 08/31 for the worsening renal function and IV fluid were stopped. Acute kidney injury was attributed to contrast nephropathy and further toxins were avoided. Her renal function continued to deteriorate. Dialysis catheter was inserted on 09/04/2019. She underwent temporary dialysis. Creatinine issues were downtrending. Dialysis was discontinued, catheter was removed on 09/10/2019. She was diagnosed with UTI and was placed on Rocephin, completed treatment. She passed a modified barium swallow on 09/10/2019 and placed on mechanically altered and moist dysphagia 2 diet with nectar thickened liquids. Continued to have left-sided hemiparesis, impaired balance, decreased motor control, and decreased safety awareness, though she was awake, alert, oriented x4, and she was discharged at this stage to rehab on subcutaneous heparin for DVT prophylaxis. She was started on Lantus at a lower dose than previous considering no more than 10 units of insulin and titrate up as per appropriate. If increasing to medium, [QAMARKER] correction. If daytime blood glucose continues to trend more than 200 despite correction of low dose, then NovoLog will be increased. She was continued to be monitored on the blood glucose and insulin as needed. The patient has not traveled outside the [place] and has no contact with anyone who had the COVID 19. LEVEL OF FUNCTION AT
== END 2019-10-01 13:20 | disposition swing bed (61) | DRG 56 ==
PROVIDERS: Physician Assistant; Admitting Provider Psychiatry & Neurology Neurology; Visit Provider Psychiatry & Neurology Neurology
DX: I69.354 Hemiplegia and hemiparesis following cerebral infarction affecting left non-dominant side (principal); I61.9 Nontraumatic intracerebral hemorrhage, unspecified; I13.0 Hypertensive heart and chronic kidney disease with heart failure and stage 1 through stage 4 chronic kidney disease, or unspecified chronic kidney disease; I50.20 Unspecified systolic (congestive) heart failure; E46 Unspecified protein-calorie malnutrition; F05 Delirium due to known physiological condition; J90 Pleural effusion, not elsewhere classified; R50.9 Fever, unspecified; I25.2 Old myocardial infarction; I69.391 Dysphagia following cerebral infarction; I69.322 Dysarthria following cerebral infarction; R13.19 Other dysphagia; I69.398 Other sequelae of cerebral infarction; H53.40 Unspecified visual field defects; D63.1 Anemia in chronic kidney disease; E11.22 Type 2 diabetes mellitus with diabetic chronic kidney disease; E03.9 Hypothyroidism, unspecified; E78.5 Hyperlipidemia, unspecified; F32.9 Major depressive disorder, single episode, unspecified; I34.0 Nonrheumatic mitral (valve) insufficiency; I25.10 Atherosclerotic heart disease of native coronary artery without angina pectoris; N18.9 Chronic kidney disease, unspecified; Z87.891 Personal history of nicotine dependence; Z95.5 Presence of coronary angioplasty implant and graft; Z79.4 Long term (current) use of insulin; Z95.1 Presence of aortocoronary bypass graft; Z79.82 Long term (current) use of aspirin; Z79.02 Long term (current) use of antithrombotics/antiplatelets
CPT/HCPCS: 36415; 70551; 70553; 71046; 80048; 80061; 81001; 83036; 84443; 85025; 86140; 87635; 92507; 92523; 92526; 92610; 92611; 93005; 97110; 97112; 97116; 97129; 97130; 97162; 97166; 97530; 97535; 97542; A9270; A9577; C9803; J1815; J8540; U0003

== ENCOUNTER 2019-12-18 13:08 | Outpatient (CLI) | payer MEDICARE, SELFPAY ==
--- NOTE | ~2019-12-18 | MR_ITS ---
EXAMINATION: MR brain/brain stem wo con EXAM DATE: 12/18/2019 15:27 INDICATION: Confusion. TECHNIQUE: Magnetic resonance imaging (MRI) of the brain/brain stem obtained without contrast. Louise davalos T1, axial diffusion, gradient echo (T2*), T1, T2, FLAIR sequences obtained. Comparison is made to prior examination from 10/06/2019. FINDINGS: There is large old right MCA distribution infarction. This has demonstrated additional expe cted evolution compared to MRI exam from September, more in the location and encephalomalacia is present. T here are no areas of restricted diffusion to suggest acute infarction. There is no acute hemorrhage seen on the T2*, a hemosiderin sensitive sequence. No intraparenchymal brain mass lesion. There is m ild periventricular and subcortical T2/FLAIR signal hyperintensity, nonspecific but probably related to small vessel ischemic disease (microangiopathy). There is moderate prominence of the sulci and v entricles related to cerebral atrophy. There are no extra-axial collections. Flow voids are seen i n the cerebral arteries on the T2-weighted sequences consistent with their expected patency. The orb its are unremarkable. Soft tissue is unremarkable. IMPRESSION: 1. Large old right MCA distribution infarction. 2. Chronic age related findings. Reviewed, dictated and finalized at location A.
--- NOTE | 2019-12-18 13:30 | NEURO_ITS ---
TEST: ELECTROENCEPHALOGRAM DIAGNOSIS: TIA PATIENT NUMBER: [id number] EEG NUMBER: [id number] RECORDING DATE: 12/18/19 CLINICAL HISTORY: Patient reports she had a stroke about 4 months ago that affected her left arm and leg and has had 2 episodes of uncontrollable shaking on the left side. CONDITION OF RECORDING: Awake, drowsy and sleep EEG DESCRIPTION: Basic resting occipital frequency consists of moderate amount of poorly organized low voltage 8-9hz alpha mixed with low to medium voltage 2- 3hz delta and 5-7hz theta activity. Bilateral symmetrical sleep activity is seen during sleep. Photic stimulation produced poor drive. Nonparoxysmal. Nonfocal. Nonlateralizing. IMPRESSION: Abnormal record due to the presence of bilateral theta and delta activity without evidence of paroxysmal activity. These abnormalities could be consistent with organic or metabolic encephalopathy or a focal structural lesion. Clinical correlation recommended. [facility]
== END 2019-12-18 13:09 | disposition home or self-care (01) ==
PROVIDERS: Visit Provider Psychiatry & Neurology Neurology
DX: G45.9 Transient cerebral ischemic attack, unspecified (principal); R94.131 Abnormal electromyogram [EMG]
CPT/HCPCS: 70551; 95816

== ENCOUNTER 2020-01-11 20:13 | Inpatient (IN) | payer MEDICARE, SELFPAY ==
--- NOTE | ~2020-01-11 | MR_ITS ---
EXAMINATION: MR brain/brain stem wo con DATE: 01/12/2020 14:01 INDICATION: Right facial droop and near syncope, possible seizure TECHNIQUE: Magnetic resonance imaging (MRI) of the brain and brainstem was performed without intraven ous contrast. Sequences included sagittal and axial T1-weighted SE, axial diffusion-weighted FS EPI A SSET, axial T2*-weighted GRE, axial T2-weighted FLAIR Propeller, and axial T2-weighted Propeller. Minor arent diffusion coefficient (ADC) maps were created. COMPARISON: 1120, 09/26/2019 FINDINGS: Again seen is a chronic right middle cerebral artery distribution infarct. No acute areas o f restricted diffusion are identified to suggest new infarction. There is unchanged susceptibility ar tifact in the affected region on T2*and T1-weighted sequences, consistent with laminar necrosis. No e xtra-axial fluid collections are identified. There is moderate prominence of the sulci and ventricles related to cerebral atrophy. The orbits are unremarkable. IMPRESSION: 1. Evolving old right middle cerebral artery distribution infarct without acute findings. Reviewed, dictated and finalized at location A.
[2020-01-11 20:44] VITALS: PULSE 62
[2020-01-11 21:04] VITALS: BP 155/52; PULSE 64; RESP 16; TEMP 36.4; O2SAT 100; BMI 22.1
--- NOTE | 2020-01-11 21:04 | ADMGEN ---
This patient, Randa Call, was admitted to Medical Room 258-. Patient/family oriented to hospital policies and general routines including ID bracelet, bed and alarms, visiting hours, pain management, procedures, bathroom and other care routines, personal items, smoking policy, room service/diet, and visiting hours. Valuables list has been completed. Information on how to activate the Rapid Response Team has been discussed. Patient/Family are encouraged to report perceived risks to care and to ask questions if they do not understand what they are told or what they should do.
[2020-01-12] VITALS (11 sets, daily range): BP systolic 136–159; BP diastolic 53–57; PULSE 54–80; RESP 16; TEMP 36.4–37; O2SAT 99–100
[2020-01-12] MEDS: SODIUM CHLORIDE 0.9% IV 1,000 ML 100 ML IV CONT (01:15)
[2020-01-12 01:20] LABS: Glucose Point of Care 135 (65-105)
[2020-01-12] MEDS: LEVOTHYROXINE SODIUM 150 MCG TABLET PO (05:39)
--- NOTE | 2020-01-12 06:51 | PC.NURSE ---
At 2100 Dr. Ayala came up to nurses station and asked if this patient Randa Call was here. I told her she is here and Wagner is at bedside doing the admission.
[2020-01-12 09:31] LABS: Glucose Point of Care 92 (65-105)
[2020-01-12 09:31] LABS: Glucose Point of Care 47 (65-105)
[2020-01-12 09:31] LABS: Glucose Point of Care 56 (65-105)
[2020-01-12] MEDS: amLODIPine BESYLATE 5 MG TABLET 10 MG PO (09:44)
[2020-01-12] MEDS: FERROUS SULFATE 324 MG TABLET PO (09:44)
[2020-01-12] MEDS: DOCUSATE SODIUM 100 MG CAPSULE PO (09:44)
[2020-01-12] MEDS: METOPROLOL TARTRATE 25 MG TABLET PO ×2 (09:44→20:13)
[2020-01-12] MEDS: PARoxetine 10 MG TABLET PO (09:44)
[2020-01-12] MEDS: ISOSORBIDE MONONITRATE 60 MG TAB.ER.24H PO (09:44)
--- NOTE | 2020-01-12 10:21 | ECG_ITS ---
Measurements Intervals [place] Rate: 61 P: 44 IL: 172 QRS: -21 QRSD: 146 T: 131 QT: 505 QTc: 511 Interpretive Statements SINUS RHYTHM LEFT BUNDLE BRANCH BLOCK ABNORMAL ECG Electronically Signed On 01-12-2020 11:13:13 CDT by Flip Earl D.O.
--- NOTE | 2020-01-12 10:23 | PM.IMHP ---
H&P: HPI History of Present Illness Date/Time: 01/12/20 10:23 Chief complaint: near syncope, possible seizure,acute kidney injury Narrative: Randa Call is a 79 year old female With a past medical history of stroke, heart disease, possible seizures who presented emergency room for altered mental status with bowel and bladder incontinence. patient states she was in her usual state of health when she decided to go camping with her daughter and went to [employer] to get some supplies. Prior to this shopping trip, she was ambulating just fine with no issues. When she got [employer] she started feeling cold, clammy and having abdominal cramping. She knew she was going to have to go to the bathroom. She made it to the bathroom but was unable to hold her bowel or bladder and had an accident there in the bathroom. She says it was dark stool but that is normal for her because she takes iron. No blood or mucus that she remembers. She states that she remembers the whole thing and did not lose consciousness. Her daughter states that she was confused and was not articulating her words right and thought she may have had a right-sided facial droop. no repetitive movements mentioned but the patient was unsure. She is a diabetic and was taking her medicine as prescribed but did not get an Accu-Chek during this time. Prior to all this about a week ago she had some spaghetti casserole and had nausea vomiting for 2 days which had fully resolved. She has not had any sick contacts lately. She denies lightheadedness, dizziness, chest pain, shortness of breath, weakness, headache, vision change in, fever, or cough. She has not had any diarrhea since being here. Of note, she has been getting worked up for possible mini strokes or seizures. When she is at home she suddenly becomes weak but has no unintentional movements. Review of Systems Review of Systems: All systems reviewed & are unremarkable except as noted in HPI and below [facility] Past Medical History Medical History Cerebrovascular accident (~08/2019) 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 Chronic anemia With history of blood transfusion. Congestive heart failure Left ventricular systolic function low end of normal on cardiac catheterization in August 2019. Coronary artery disease Status post 2 vessel CABG and drug-eluting stent to the left circumflex. Depression Dysphagia following cerebrovascular accident Essential hypertension Hyperlipidemia Hypothyroidism Insulin dependent diabetes mellitus Hemoglobin A1c was 8.0% in August 2019. Surgical History Surgical History History of cardiac catheterization (~08/2019) Drug-eluting stent to the left circumflex done at [facility]. History of cataract surgery History of hysterectomy History of loop recorder History of two vessel coronary artery bypass graft Family History Family History Father Malignant neoplasm of prostate Mother Heart disease Sibling Diabetes mellitus Social History Social History Social History: Sadie GORE. Former smoker quit 45 years ago. No Alcohol or drug use. Code status: Full code. Smoking packs per day: 0.5 Smoking cigarettes per day: 10.0 Smoking status: Never smoker Tobacco type: cigarettes Smoking end date: 05/23/64 Alcohol intake: never Substance use: never Substance use type: does not use Additional living arrangements comments: Patient lives in her own home in [place]. She has a cat at home. 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 Spiritual care concerns: No Agree to blood products: Yes Meds Home Medications and Allergies Home Medications Medication Instructions Juan Carlos
[2020-01-12 11:43] LABS: Glucose Point of Care 160 (65-105)
[2020-01-12] MEDS: SODIUM CHLORIDE 0.9% IV 1,000 ML 75 ML IV CONT (13:18)
[2020-01-12 16:46] LABS: Glucose Point of Care 138 (65-105)
--- NOTE | 2020-01-12 17:28 | WPDNEURCNPN ---
Assessment and Plan Assessment and plan (1) Seizure disorder: Code(s): G40.909 - Epilepsy, unspecified, not intractable, without status epilepticus Status: Acute (2) Prolonged QT interval: Code(s): R94.31 - Abnormal electrocardiogram [ECG] [EKG] Status: Acute (3) History of CVA (cerebrovascular accident): Code(s): Z86.73 - Personal history of transient ischemic attack (TIA), and cerebral infarction without residual deficits Status: Acute (4) ASTRID (acute kidney injury): Code(s): N17.9 - Acute kidney failure, unspecified Status: Acute (5) Diarrhea: Code(s): R19.7 - Diarrhea, unspecified Status: Acute (6) Low grade fever: Code(s): R50.9 - Fever, unspecified Status: Acute (7) Hemorrhagic stroke: Code(s): I61.9 - Nontraumatic intracerebral hemorrhage, unspecified Status: Acute (8) Left hemiparesis: Code(s): G81.94 - Hemiplegia, unspecified affecting left nondominant side Status: Acute (9) Coronary artery disease: Qualifiers: Coronary Disease-Associated Artery/Lesion type: unspecified vessel or lesion type [place] vs. transplanted heart: unspecified whether [place] or transplanted heart Associated angina: without angina Qualified Code(s): I25.10 - Atherosclerotic heart disease of [place] coronary artery without angina pectoris Code(s): I25.10 - Atherosclerotic heart disease of [place] coronary artery without angina pectoris Status: Chronic (10) Hyperlipidemia: Qualifiers: Hyperlipidemia type: unspecified Qualified Code(s): E78.5 - Hyperlipidemia, unspecified Code(s): E78.5 - Hyperlipidemia, unspecified Status: Acute (11) Hypothyroidism: Qualifiers: Hypothyroidism type: unspecified Qualified Code(s): E03.9 - Hypothyroidism, unspecified Code(s): E03.9 - Hypothyroidism, unspecified Status: Acute (12) Essential hypertension: Code(s): I10 - Essential (primary) hypertension Status: Chronic (13) Insulin dependent diabetes mellitus: Status: Chronic (14) Recent cerebrovascular accident: Code(s): Z86.73 - Personal history of transient ischemic attack (TIA), and cerebral infarction without residual deficits Status: Acute Additional Plan to my recollection the patient was lately on Eliquis and I do not recall by my memory and the record does not help me when was the Eliquis started and why she used to be on dual anti-platelet therapy however and also lately on Keppra I have left a message to her granddaughter Jayne on her cell phone to call me difficult it out about the Eliquis in the meantime we will continue the present management with the Keppra and observe her here the MRI does not show any new evidence of stroke I have discussed this with the attending nurse practitioner Consult date: 01/12/20 Time Seen: 16:30 HPI: Randa Call is a 79 year old female she is known to me from the previous office visit and also the hospitalization on the acute rehab lately clinically she was having focal seizure with post ictal confusion I had started her on Keppra she was presented to a hospital in [place] with a history of diarrhea and probably having an episode of confusional state of which still continues followed by loss of bladder or bowel continence and she was given IV valproic acid at the other hospital 1 gram and I have opted to continue her Keppra as 500 milligram b.i.d. the patient has a history of having had right hemispheric stroke and also coronary angioplasty and rather complicated course after having had the previous stroke and left with the significant improvement in her left-sided hemiparesis however continues to have left-sided visual field defect the patient denies any headache nausea vomiting diarrhea fever chills sore throat at this time Review of Systems Review of Systems: All systems reviewed & are unremarkable except as not
[2020-01-12] MEDS: ATORVASTATIN 40 MG TABLET 80 MG PO (20:12)
[2020-01-12] MEDS: levETIRAcetam 500 MG TABLET PO (20:12)
[2020-01-12] MEDS: APIXABAN 5 MG TABLET PO (20:12)
[2020-01-12 21:26] LABS: Glucose Point of Care 221 (65-105)
[2020-01-13] VITALS (11 sets, daily range): BP systolic 121–134; BP diastolic 52–56; PULSE 54–100; RESP 18–20; TEMP 36.3–36.6; O2SAT 100
[2020-01-13] MEDS: SODIUM CHLORIDE 0.9% IV 1,000 ML 75 ML IV CONT (03:18)
[2020-01-13 05:41] LABS: Basophils Absolute Auto 0.1 K/mm3 (0.0-0.1); Eosinophils Absolute Auto 0.1 K/mm3 (0-0.3); Eosinophils Percent Auto 1.7 % (0-4.4); Hematocrit 28.3 % (37.0-47.0); Hemoglobin 9.5 g/dL (12.0-15.0); Immature Granulocyte Absolute 0.02 K/mm3 (0.00-0.031); Immature Granulocyte Percent A 0.3 % (0-0.5); Lymphocytes Absolute Auto 2.26 K/mm3 (0.9-3.2); Lymphocytes Percent Auto 39.1 % (18.3-44.2); Mean Corpuscular HGB Conc 33.6 g/dl (32-36); Mean Corpuscular Hemoglobin 32.2 pg (26-34); Mean Corpuscular Volume 95.9 fl (80-100); Mean Platelet Volume 11.1 fl (7.4-10.4); Monocytes Absolute Auto 0.7 K/mm3 (0.1-0.6); Monocytes Percent Auto 12.3 % (2.6-8.5); Neutrophils Absolute Auto 2.6 K/mm3 (1.3-6.7); Neutrophils Percent Auto 45.6 % (45.5-73.1); Platelet Count Result 233 k/mm3 (150-375); Red Blood Count 2.95 M/mm3 (4.2-5.4); White Blood Count 5.8 K/mm3 (4.5-10.0)
[2020-01-13] MEDS: LEVOTHYROXINE SODIUM 150 MCG TABLET PO (05:53)
[2020-01-13 05:55] LABS: Anion Gap 4 mmol/L (8-16); Blood Urea Nitrogen 19 mg/dL (7-17); CRP 0.7 mg/dL (<1.0); Calcium 7.7 mg/dL (8.4-10.2); Carbon Dioxide 25 mmol/L (22-30); Chloride 111 mmol/L (98-107); Estimated CRCL calculation 35 ml/min; Estimated Glomerular Filt Rate 44; Glucose 120 mg/dL (65-105); Magnesium 2.2 mg/dL (1.6-2.3); Phosphorus 3.3 mg/dL (2.5-4.5); Potassium 3.1 mmol/L (3.4-5.0); Sodium 140 mmol/L (137-145)
[2020-01-13 06:29] LABS: Thyroid Stimulating Hormone Reflex 0.162 uIU/mL (0.465-4.68)
[2020-01-13 07:49] LABS: Glucose Point of Care 105 (65-105)
[2020-01-13] MEDS: APIXABAN 5 MG TABLET PO (09:11)
[2020-01-13] MEDS: levETIRAcetam 500 MG TABLET PO ×2 (09:11→21:03)
[2020-01-13] MEDS: PARoxetine 10 MG TABLET PO (09:11)
[2020-01-13] MEDS: ISOSORBIDE MONONITRATE 60 MG TAB.ER.24H PO (09:11)
[2020-01-13] MEDS: DOCUSATE SODIUM 100 MG CAPSULE PO (09:11)
[2020-01-13] MEDS: METOPROLOL TARTRATE 25 MG TABLET PO ×2 (09:12→21:03)
[2020-01-13] MEDS: amLODIPine BESYLATE 5 MG TABLET 10 MG PO (09:12)
[2020-01-13] MEDS: FERROUS SULFATE 324 MG TABLET PO (09:12)
[2020-01-13] MEDS: POTASSIUM CHLORIDE 20 MEQ TABLET 40 MEQ PO (09:12)
[2020-01-13 10:35] LABS: Total Triiodothyronine (T3) 0.78 NG/ML (0.97-1.69)
--- NOTE | 2020-01-13 10:40 | PM.IMPN ---
Progress Note: A&P Assessment and Plan (1) Diarrhea: Code(s): R19.7 - Diarrhea, unspecified Status: Acute Assessment and Plan: -----resolved. The patient had diarrhea last week and once before admission after abdominal cramping. She no longer has abdominal pain or diarrhea at this time. I do not suspect this is an ongoing issue. if she develops pain , develops a fever, or has more diarrhea, we can send off for stool cultures. white blood cell count is normal. Patient has never had C diff (2) ASTRID (acute kidney injury): Code(s): N17.9 - Acute kidney failure, unspecified Status: Acute Assessment and Plan: -----resolved creatinine 1.2. IV fluids have been stopped. Outside area hospital labs show a creatinine of 2.3 on admission. Last creatinine in our system is 1.4. likely due to diarrhea last week and additional episode day of admission (3) Insulin dependent diabetes mellitus: Status: Chronic Assessment and Plan: ----- glucose this morning was 105. A1c today is 8.0. She did have some low glucose readings earlier this stay. I wonder if some of these episodes are hypoglycemia related. She says she usually checks her blood sugar at home and can range from 60-600. She says she does not really comply with a diabetic diet but does take her medicine as prescribed. I told her she always needs to have candy around and if she has these types of symptoms again, she needs to check her glucose a soon as possible. For now, will stop the long-acting insulin and continue sliding scale insulin until we see her pattern. (4) History of CVA (cerebrovascular accident): Code(s): Z86.73 - Personal history of transient ischemic attack (TIA), and cerebral infarction without residual deficits Status: Acute Assessment and Plan: ----- noted in the past with very few deficits. She is no longer on aspirin or plavix and is on this new medication she doesn't know the name of but thinks it is Eliquis. Family is trying to verify it. Neurology consulted (5) Hypothyroidism: Qualifiers: Hypothyroidism type: unspecified Qualified Code(s): E03.9 - Hypothyroidism, unspecified Code(s): E03.9 - Hypothyroidism, unspecified Status: Acute Assessment and Plan: -----Continue levothyroxine. T4 normal (6) Coronary artery disease: Qualifiers: Coronary Disease-Associated Artery/Lesion type: unspecified vessel or lesion type [place] vs. transplanted heart: unspecified whether [place] or transplanted heart Associated angina: without angina Qualified Code(s): I25.10 - Atherosclerotic heart disease of [place] coronary artery without angina pectoris Code(s): I25.10 - Atherosclerotic heart disease of [place] coronary artery without angina pectoris Status: Chronic Assessment and Plan: -----No CP toay or recently. LBBB chronic. Pt on tele. (7) Prolonged QT interval: Code(s): R94.31 - Abnormal electrocardiogram [ECG] [EKG] Status: Acute Assessment and Plan: -----improved. Left bundle. She is on tele and has a loop recorder. (8) Seizure disorder: Code(s): G40.909 - Epilepsy, unspecified, not intractable, without status epilepticus Status: Acute Assessment and Plan: ----- see above. await neurologys recommendations. I talked to the patient and told her if she continues to have fatigue with this medication after about 2 weeks or a month, may consider decreasing dose to 250 mg b.i.d. Time Spent With Patient Time with patient: 25 - 35 minutes Subjective Date/time seen: 01/13/20 10:40 Interval history: Pt is a 79-year-old female here for diarrhea and possible seizure-like activity. Patient was seen today with family at bedside and states she has not had any recurrent symptoms. She has not had any diarrhea or uncontrolled movements that she knows of. Pt denies nausea, vomi
[2020-01-13 11:54] LABS: Glucose Point of Care 254 (65-105)
[2020-01-13] MEDS: INSULIN ASPART (*BKC) 100 UNITS/ML SUB-Q ×2 (11:57→16:59)
[2020-01-13 16:50] LABS: Glucose Point of Care 202 (65-105)
[2020-01-13] MEDS: ATORVASTATIN 40 MG TABLET 80 MG PO (21:02)
[2020-01-13] MEDS: APIXABAN 2.5 MG TABLET PO (21:02)
[2020-01-13 21:40] LABS: Glucose Point of Care 271 (65-105)
[2020-01-14] VITALS (10 sets, daily range): BP systolic 101–127; BP diastolic 50–62; PULSE 67–78; RESP 18–20; TEMP 36.2–36.6; O2SAT 99–100
[2020-01-14 05:49] LABS: Hematocrit 27.2 % (37.0-47.0); Hemoglobin 9.1 g/dL (12.0-15.0); Mean Corpuscular HGB Conc 33.5 g/dl (32-36); Mean Corpuscular Hemoglobin 32.2 pg (26-34); Mean Corpuscular Volume 96.1 fl (80-100); Mean Platelet Volume 11.7 fl (7.4-10.4); Platelet Count Result 216 k/mm3 (150-375); Red Blood Count 2.83 M/mm3 (4.2-5.4); Red Cell Distribution Width 11.9 % (11.5-14.5); White Blood Count 6.9 K/mm3 (4.5-10.0)
[2020-01-14] MEDS: LEVOTHYROXINE SODIUM 150 MCG TABLET PO (06:04)
[2020-01-14 06:07] LABS: Anion Gap 10 mmol/L (8-16); Blood Urea Nitrogen 20 mg/dL (7-17); Calcium 7.6 mg/dL (8.4-10.2); Carbon Dioxide 18 mmol/L (22-30); Chloride 104 mmol/L (98-107); Estimated CRCL calculation 32 ml/min; Estimated Glomerular Filt Rate 40; Glucose 420 mg/dL (65-105); Potassium 4.5 mmol/L (3.4-5.0); Sodium 132 mmol/L (137-145)
[2020-01-14] MEDS: INSULIN ASPART (*BKC) 100 UNITS/ML 8 UNITS SUB-Q (08:03)
[2020-01-14] MEDS: FERROUS SULFATE 324 MG TABLET PO (08:04)
[2020-01-14] MEDS: DOCUSATE SODIUM 100 MG CAPSULE PO (08:04)
[2020-01-14] MEDS: levETIRAcetam 500 MG TABLET PO ×2 (08:04→20:27)
[2020-01-14] MEDS: CLOPIDOGREL BISULFATE 75 MG TABLET PO (08:04)
[2020-01-14] MEDS: ISOSORBIDE MONONITRATE 60 MG TAB.ER.24H PO (08:04)
[2020-01-14] MEDS: amLODIPine BESYLATE 5 MG TABLET 10 MG PO (08:04)
[2020-01-14] MEDS: PARoxetine 10 MG TABLET PO (08:04)
[2020-01-14] MEDS: APIXABAN 2.5 MG TABLET PO ×2 (08:04→20:27)
[2020-01-14] MEDS: METOPROLOL TARTRATE 25 MG TABLET PO ×2 (08:05→20:27)
[2020-01-14 08:07] LABS: Glucose Point of Care 435 (65-105)
[2020-01-14] MEDS: INSULIN ASPART (*BKC) 100 UNITS/ML SUB-Q (10:29)
[2020-01-14 11:26] LABS: Anion Gap 7 mmol/L (8-16); Blood Urea Nitrogen 21 mg/dL (7-17); Calcium 7.7 mg/dL (8.4-10.2); Carbon Dioxide 21 mmol/L (22-30); Chloride 103 mmol/L (98-107); Estimated CRCL calculation 32 ml/min; Estimated Glomerular Filt Rate 40; Glucose 328 mg/dL (65-105); Sodium 131 mmol/L (137-145)
[2020-01-14 11:35] LABS: Glucose Point of Care 277 (65-105)
[2020-01-14 12:32] LABS: Glucose Point of Care 342 (65-105)
[2020-01-14 12:32] LABS: Glucose Point of Care 302 (65-105)
[2020-01-14 14:25] LABS: Glucose Point of Care 370 (65-105)
--- NOTE | 2020-01-14 14:53 | WPDNEUROPN ---
Progress Note: A&P Assessment and Plan (1) Seizure disorder: Code(s): G40.909 - Epilepsy, unspecified, not intractable, without status epilepticus Status: Acute (2) History of CVA (cerebrovascular accident): Code(s): Z86.73 - Personal history of transient ischemic attack (TIA), and cerebral infarction without residual deficits Status: Acute (3) ASTRID (acute kidney injury): Code(s): N17.9 - Acute kidney failure, unspecified Status: Acute (4) Diarrhea: Code(s): R19.7 - Diarrhea, unspecified Status: Acute (5) Left hemiparesis: Code(s): G81.94 - Hemiplegia, unspecified affecting left nondominant side Status: Acute (6) Coronary artery disease: Qualifiers: Coronary Disease-Associated Artery/Lesion type: unspecified vessel or lesion type [place] vs. transplanted heart: unspecified whether [place] or transplanted heart Associated angina: without angina Qualified Code(s): I25.10 - Atherosclerotic heart disease of [place] coronary artery without angina pectoris Code(s): I25.10 - Atherosclerotic heart disease of [place] coronary artery without angina pectoris Status: Chronic (7) Hyperlipidemia: Qualifiers: Hyperlipidemia type: unspecified Qualified Code(s): E78.5 - Hyperlipidemia, unspecified Code(s): E78.5 - Hyperlipidemia, unspecified Status: Acute (8) Hypothyroidism: Qualifiers: Hypothyroidism type: unspecified Qualified Code(s): E03.9 - Hypothyroidism, unspecified Code(s): E03.9 - Hypothyroidism, unspecified Status: Acute (9) Essential hypertension: Code(s): I10 - Essential (primary) hypertension Status: Chronic (10) Insulin dependent diabetes mellitus: Status: Chronic Additional Plan the patient is doing remark she could be discharged the description of the hospitalist once her sugar is controlled and she does have an appointment with this examiner coming up later on and she should keep that appointment Review of Systems Review of Systems: All systems reviewed & are unremarkable except as noted in HPI and below Exam Const: General: comfortable and no acute distress HENMT: General nose exam: Normal nares present Mouth: Yes moist mucous membranes Eyes: General: appearance normal, both eyes and all related structures Neck: Neck: supple and no JVD Resp: Effort & Inspection: normal respiratory effort Auscultation: clear to auscultation bilaterally Cardio: Rate: regular rate Rhythm: regular rhythm GI: Auscultation: normal bowel sounds Skin: General skin exam: normal color and no rashes or lesions noted Neuro: Other: patient is awake alert and well oriented and definitely better than the previous 48 hours a subtle left-sided weakness and visual field defect remains the same Extrem: General: normal to inspection Psych: Mental Status: mental status grossly normal Objective Data Vital Signs Vital Signs: Vital Signs - 24 hr 01/13/20 17:39 01/13/20 20:00 01/13/20 21:03 Temperature Pulse Rate 74 68 100 Respiratory Rate Blood Pressure Pulse Oximetry 01/13/20 22:00 01/14/20 00:00 01/14/20 04:00 Temperature 36.6 C Pulse Rate 100 69 68 Respiratory Rate 20 Blood Pressure 131/56 L Pulse Oximetry 100 01/14/20 05:51 01/14/20 08:00 01/14/20 08:05 Temperature 36.2 C L Pulse Rate 70 74 71 Respiratory Rate 20 Blood Pressure 127/51 L Pulse Oximetry 100 01/14/20 12:00 01/14/20 14:00 Temperature 36.6 C Pulse Rate 67 68 Respiratory Rate 18 Blood Pressure 105/50 L Pulse Oximetry 100 Intake/Output Intake/Output: Intake & Output 01/11/20 01/12/20 01/13/20 01/14/20 23:59 23:59 23:59 23:59 Intake Total 1979 2770 1075 Output Total 1250 1700 975 Balance 730 1070 100 Meds/Results Medications: Active Medications Generic Name Dose Route Start Last Admin Trade Name Freq PRN Reason Stop Dose Admin A
--- NOTE | 2020-01-14 15:35 | PM.IMPN ---
Progress Note: A&P Assessment and Plan (1) Hyperglycemia: Code(s): R73.9 - Hyperglycemia, unspecified Status: Acute Assessment and Plan: -----Pt has brittle diabetes and has been as low as 50s and now 400+. She was given insulin but we have to be careful since she goes low so much. I have restarted her long acting insulin at half the dose and will continue with SSI. hoepfully this will improve and she can be discharged tomorrow. (2) Diarrhea: Code(s): R19.7 - Diarrhea, unspecified Status: Acute Assessment and Plan: -----resolved. The patient had diarrhea last week and once before admission after abdominal cramping. She no longer has abdominal pain or diarrhea at this time. I do not suspect this is an ongoing issue. if she develops pain , develops a fever, or has more diarrhea, we can send off for stool cultures. white blood cell count is normal. Patient has never had C diff (3) ASTRID (acute kidney injury): Code(s): N17.9 - Acute kidney failure, unspecified Status: Acute Assessment and Plan: -----resolved creatinine 1.3. IV fluids have been stopped. Outside area hospital labs show a creatinine of 2.3 on admission. Last creatinine in our system is 1.4. likely due to diarrhea last week and additional episode day of admission (4) Insulin dependent diabetes mellitus: Status: Chronic Assessment and Plan: ----see above. I wonder if some of these episodes are hypoglycemia related. She says she usually checks her blood sugar at home and can range from 60-600. She says she does not really comply with a diabetic diet but does take her medicine as prescribed. I told her she always needs to have candy around and if she has these types of symptoms again, she needs to check her glucose a soon as possible. For now, will stop the long-acting insulin and continue sliding scale insulin until we see her pattern. (5) History of CVA (cerebrovascular accident): Code(s): Z86.73 - Personal history of transient ischemic attack (TIA), and cerebral infarction without residual deficits Status: Acute Assessment and Plan: ----- noted in the past with very few deficits. Family verifies she is on eliquis 2.5mg BID and plavix. Neurology consulted (6) Hypothyroidism: Qualifiers: Hypothyroidism type: unspecified Qualified Code(s): E03.9 - Hypothyroidism, unspecified Code(s): E03.9 - Hypothyroidism, unspecified Status: Acute Assessment and Plan: -----Continue levothyroxine. T4 normal (7) Coronary artery disease: Qualifiers: Coronary Disease-Associated Artery/Lesion type: unspecified vessel or lesion type [place] vs. transplanted heart: unspecified whether [place] or transplanted heart Associated angina: without angina Qualified Code(s): I25.10 - Atherosclerotic heart disease of [place] coronary artery without angina pectoris Code(s): I25.10 - Atherosclerotic heart disease of [place] coronary artery without angina pectoris Status: Chronic Assessment and Plan: -----No CP toay or recently. LBBB chronic. Pt on tele. (8) Prolonged QT interval: Code(s): R94.31 - Abnormal electrocardiogram [ECG] [EKG] Status: Acute Assessment and Plan: -----improved. Left bundle. She is on tele and has a loop recorder. (9) Seizure disorder: Code(s): G40.909 - Epilepsy, unspecified, not intractable, without status epilepticus Status: Acute Assessment and Plan: ----- see above. await neurologys recommendations. I talked to the patient and told her if she continues to have fatigue with this medication after about 2 weeks or a month, may consider decreasing dose to 250 mg b.i.d. Subjective Date/time seen: 01/14/20 15:35 Interval history: Pt is a 79-year-old female here for diarrhea and possible seizure-like activity. Patient was seen today and
[2020-01-14] MEDS: INSULIN GLARGINE (*BKC) 100 UNITS/ML 13 UNITS SUB-Q (15:36)
[2020-01-14 17:01] LABS: Glucose Point of Care 443 (65-105)
[2020-01-14] MEDS: INSULIN ASPART (*BKC) 100 UNITS/ML 10 UNITS SUB-Q (17:07)
[2020-01-14 18:57] LABS: Glucose Point of Care 391 (65-105)
[2020-01-14] MEDS: INSULIN GLARGINE (*BKC) 100 UNITS/ML 10 UNITS SUB-Q (19:31)
[2020-01-14] MEDS: ATORVASTATIN 40 MG TABLET 80 MG PO (20:27)
[2020-01-14 20:49] LABS: Glucose Point of Care 326 (65-105)
[2020-01-15] VITALS: PULSE 66
[2020-01-15 04:00] VITALS: BP 146/58; PULSE 63; RESP 18; TEMP 36.2; O2SAT 100
[2020-01-15 04:04] VITALS: PULSE 59
[2020-01-15 05:45] LABS: Anion Gap 5 mmol/L (8-16); Blood Urea Nitrogen 23 mg/dL (7-17); Calcium 7.8 mg/dL (8.4-10.2); Carbon Dioxide 24 mmol/L (22-30); Chloride 103 mmol/L (98-107); Estimated CRCL calculation 28 ml/min; Estimated Glomerular Filt Rate 34; Glucose 153 mg/dL (65-105); Potassium 3.6 mmol/L (3.4-5.0); Sodium 132 mmol/L (137-145)
[2020-01-15] MEDS: LEVOTHYROXINE SODIUM 150 MCG TABLET PO (05:55)
[2020-01-15 07:40] LABS: Glucose Point of Care 125 (65-105)
[2020-01-15 08:00] VITALS: PULSE 59
--- NOTE | 2020-01-15 09:35 | PM.DS ---
DS: Admitting Diagnosis Admitting Diagnosis Admitting Diagnosis: near syncope, possible seizure,acute kidney injury DS: Discharge Diagnosis Discharge Diagnosis (1) Diarrhea: Qualifiers: Diarrhea type: unspecified type Qualified Code(s): R19.7 - Diarrhea, unspecified Code(s): R19.7 - Diarrhea, unspecified Status: Acute Assessment and Plan: Date of Service is 01/15/20 Ms. Call is a pleasant 79yo F with history of stroke, heart disease, possible seizures who presented to the ED for evaluation of altered mental status with bowel and bladder incontinence. He stated she was in her normal state of health when she decided to go camping with her daughter and went to the store to get some supplies. While at the store, she noted she began to feel cold, clammy, having abdominal cramping with urgency for bowel movement. She was not able to make it the restroom was incontinent of some stool, after that she was more confused than normal. Neurology was consulted and she has followed with Dr. Parson in the past for history of CVA (stayed at [facility] this summer) and possible seizure-like activity. Neurology describes clinically she was having focal seizure with postictal confusion, started on Keppra. Today, she is feeling improved and she is not had any more diarrhea during this admission. She is noted to have brittle insulin-dependent type 2 diabetes mellitus and during this admission, blood sugars as low as 30s, and as high as 400s yesterday. She was instructed to continue taking her blood sugars regularly, keep a record of them to give to primary care provider at follow-up visit next week. He was instructed to continue her sliding scale short-acting insulin with meals, decreased [place] to 17 units daily. She does also follow with endocrinology and is encouraged to follow-up with them as well. Today she is back at her baseline, feeling well, improved, and hemodynamically stable for discharge on 01/15/20 with instructions to follow-up with PCP next week, Dr. Parson, and her imaging clerk. (2) Hyperglycemia: Code(s): R73.9 - Hyperglycemia, unspecified Status: Acute Assessment and Plan: Patient has brittle diabetes and has been as low as 30s and then up to 400+ yesterday. Resume her long-acting insulin at 17 units daily (decreased from 26 units daily) -continue to monitor blood sugars regularly and follow-up with PCP is this dose may need adjusted. (3) History of CVA (cerebrovascular accident): Code(s): Z86.73 - Personal history of transient ischemic attack (TIA), and cerebral infarction without residual deficits Status: Acute Assessment and Plan: CVA September 2019 after which she stayed at [facility]. Doing well with very few deficits. Family verifies she is on eliquis 2.5mg BID and plavix. She was seen by Neurology and will continue to follow them as outpatient. (4) ASTRID (acute kidney injury): Code(s): N17.9 - Acute kidney failure, unspecified Status: Acute Assessment and Plan: Likely associated with dehydration/diarrhea. Cr 1.5 day of discharge, follow-up labs outpatient with results to PCP. (5) Insulin dependent diabetes mellitus: Status: Chronic Assessment and Plan: ----see above. It is possible some of these confusion/clammy episodes are hypoglycemia related. She says she usually checks her blood sugar at home and can range from 60-600. She says she does not really comply with a diabetic diet but does take her medicine as prescribed. I told her she always needs to have candy around and if she has these types of symptoms again, she needs to check her glucose a soon as possible. Follow-up with her established imaging clerk. (6) Hypothyroidism:
[2020-01-15] MEDS: amLODIPine BESYLATE 5 MG TABLET 10 MG PO (10:05)
[2020-01-15] MEDS: CLOPIDOGREL BISULFATE 75 MG TABLET PO (10:05)
[2020-01-15] MEDS: ISOSORBIDE MONONITRATE 60 MG TAB.ER.24H PO (10:05)
[2020-01-15 10:06] VITALS: PULSE 64
[2020-01-15] MEDS: METOPROLOL TARTRATE 25 MG TABLET PO (10:06)
[2020-01-15] MEDS: levETIRAcetam 500 MG TABLET PO (10:06)
[2020-01-15] MEDS: DOCUSATE SODIUM 100 MG CAPSULE PO (10:06)
[2020-01-15] MEDS: APIXABAN 2.5 MG TABLET PO (10:06)
[2020-01-15] MEDS: FERROUS SULFATE 324 MG TABLET PO (10:06)
[2020-01-15] MEDS: PARoxetine 10 MG TABLET PO (10:06)
[2020-01-15 11:28] LABS: Glucose Point of Care 101 (65-105)
== END 2020-01-15 12:20 | disposition home or self-care (01) | DRG 683 ==
PROVIDERS: Internal Medicine; Physician Assistant; Admitting Provider Family Medicine; Visit Provider Physician Assistant
DX: N17.9 Acute kidney failure, unspecified (principal); I69.354 Hemiplegia and hemiparesis following cerebral infarction affecting left non-dominant side; R19.7 Diarrhea, unspecified; R13.10 Dysphagia, unspecified; I69.391 Dysphagia following cerebral infarction; I11.0 Hypertensive heart disease with heart failure; Z23 Encounter for immunization; G40.909 Epilepsy, unspecified, not intractable, without status epilepticus; E03.9 Hypothyroidism, unspecified; R55 Syncope and collapse; D64.9 Anemia, unspecified; I50.9 Heart failure, unspecified; I69.398 Other sequelae of cerebral infarction; H53.40 Unspecified visual field defects; E78.5 Hyperlipidemia, unspecified; E11.65 Type 2 diabetes mellitus with hyperglycemia; I25.10 Atherosclerotic heart disease of native coronary artery without angina pectoris; R50.9 Fever, unspecified; R94.31 Abnormal electrocardiogram [ECG] [EKG]; Z95.5 Presence of coronary angioplasty implant and graft; Z95.1 Presence of aortocoronary bypass graft; Z90.710 Acquired absence of both cervix and uterus; Z87.891 Personal history of nicotine dependence
CPT/HCPCS: 36415; 70551; 80048; 83036; 83735; 84100; 84439; 84443; 84480; 85025; 85027; 86140; 90471; 90686; 93005; 96360; 96361; 97110; 97161; 97165; 97535; A9270; G0008; G0378; J1815; J7030

== ENCOUNTER 2020-03-07 01:55 | Observation (INO) | payer MEDICARE, SELFPAY ==
[2020-03-07] VITALS (12 sets, daily range): BP systolic 106–155; BP diastolic 50–64; PULSE 60–76; RESP 16–18; TEMP 36.6–37.1; O2SAT 97–100; BMI 24.8
--- NOTE | ~2020-03-07 | MR_ITS ---
EXAMINATION: MR brain/brain stem wo con DATE: 03/07/2020 13:55 INDICATION: Altered mental status. TECHNIQUE: Magnetic resonance imaging (MRI) of the brain and brainstem was performed without intraven ous contrast. Sequences included sagittal and axial T1-weighted FSE, axial diffusion-weighted FS EPI, axial T2*-weighted GRE, axial T2-weighted FLAIR Propeller, and axial T2-weighted Propeller. Apparent diffusion coefficient (ADC) maps were created. COMPARISON: Brain MRI 01/12/2020 FINDINGS: There is a large old infarct involving right temporal, parietal, occipital, and posterior f rontal lobes and posterior right insula. Chronic areas of decreased T2*weighted signal intensity with in this distribution may be dystrophic calcifications or old blood products. There are scattered area s of nonspecific increased T2-weighted signal intensity in the cerebral white matter. There is no acu te ischemic infarct or abnormal mass lesion. There is ex vacuo dilatation of temporal horn of right l ateral ventricle. There are likely changes of ocular lens replacement surgeries. There is mild mucosa l thickening in the ethmoid sinuses. The mastoid air cells are normal. IMPRESSION: 1. Large old infarct in the expected distribution of right middle cerebral artery. 2. Stable mild nonspecific cerebral white matter disease, which likely represents chronic small vesse l ischemic disease. Reviewed, dictated and finalized at location A. IMPRESSION: 1. Large old infarct in the expected distribution of right middle cerebral tana ry. 2. Stable mild nonspecific cerebral white matter disease, which likely represen ts chronic small vessel ischemic disease.
--- NOTE | ~2020-03-07 | CT_ITS ---
EXAMINATION: CTA brain carotid DATE: 03/08/2020 09:22 INDICATION: Altered mental status, possible transient ischemic attack TECHNIQUE: Computed tomographic angiography (CTA) of the head was performed without and with 100 mL O mnipaque-350 intravenous contrast. CTA of the neck was performed with intravenous contrast. The dose- length product was 1177.33 mGy-cm. Maximum intensity projection and volume rendered 3D-reconstruction s were created by the technologist on a separate workstation. Automated exposure control and iterativ e reconstruction technique were employed. COMPARISON: MRI, 03/07/2020 FINDINGS: HEAD CTA: There is no acute intraparenchymal hemorrhage. No evidence of mass lesion. No evidence of a cute infarction. Encephalomalacia in the distribution of the right middle cerebral artery is consiste nt with prior infarction. There is mild periventricular and subcortical hypodensity probably related to small vessel ischemic disease. There is mild prominence of the sulci and ventricles related to cer ebral atrophy. Intracranial calcified cerebral atherosclerosis is noted. There are no extra-axial col lections. There is no mass effect or midline shift. Changes in the globes are likely from ocular lens surgery. The visualized sinuses and mastoid air cells are well aerated. There is no significant stenosis of the basilar artery or posterior cerebral arteries. There is no si gnificant stenosis of the intracranial internal carotid arteries or the anterior or middle cerebral a rteries. There is diminished enhancement in distal branches of the right middle cerebral artery, cons istent with prior infarction. The anterior communicating artery and posterior communicating arteries are normal. There is no aneurysm. NECK CTA: The submandibular and parotid glands are symmetric. There is no lymphadenopathy. There are no masses identified. The airway is unremarkable. There are no osseous abnormalities. The superior me diastinum is unremarkable. There are patchy nodular opacities of the visualized lung apices. There is 0% stenosis of the proximal right internal carotid artery relative to normal distal artery l umen diameter (NASCET criteria). There is 0% stenosis of the proximal left internal carotid artery re lative to normal distal artery lumen diameter. Calcified atherosclerosis is noted in the left carotid bulb. IMPRESSION: 1. Changes of prior right middle cerebral artery distribution infarction without acute intracranial a bnormality. Unremarkable head CTA. 2. 0% stenosis of the proximal right internal carotid artery relative to normal distal artery lumen d iameter (NASCET criteria). 3. 0% stenosis of the proximal left internal carotid artery relative to normal distal artery lumen di ameter. 4. Patchy nodular opacities of the visualized lung apices which may be infectious or inflammatory. Reviewed, dictated and finalized at location A. IMPRESSION: 1. Changes of prior right middle cerebral artery distribution infarction withou t acute intracranial abnormality. Unremarkable head CTA. 2. 0% stenosis of the proximal right internal carotid artery relative to normal distal artery lumen diameter (NASCET criteria). 3. 0% stenosis of the proximal left internal carotid artery relative to normal distal artery lumen diameter. 4. Patchy nodular opacities of the visualized lung apices which may be infectio us or inflammatory.
--- NOTE | 2020-03-07 02:02 | ADMGEN ---
This patient, Randa Call, was admitted to Medical Room 257-01 at 0155. Patient/family oriented to hospital policies and general routines including ID bracelet, bed and alarms, visiting hours, pain management, procedures, bathroom and other care routines, personal items, smoking policy, room service/diet, and visiting hours. Information on how to activate the Rapid Response Team has been discussed. Patient/Family are encouraged to report perceived risks to care and to ask questions if they do not understand what they are told or what they should do.
[2020-03-07 05:48] LABS: Anion Gap 5 mmol/L (8-16); Blood Urea Nitrogen 16 mg/dL (7-17); Calcium 7.7 mg/dL (8.4-10.2); Carbon Dioxide 26 mmol/L (22-30); Chloride 107 mmol/L (98-107); Estimated CRCL calculation 26 ml/min; Estimated Glomerular Filt Rate 40; Glucose 264 mg/dL (65-105); Potassium 3.4 mmol/L (3.4-5.0); Sodium 138 mmol/L (137-145)
[2020-03-07 05:51] LABS: Basophils Percent Auto 0.8 % (0.2-1.2); Eosinophils Absolute Auto 0.1 K/mm3 (0-0.3); Hematocrit 27.5 % (37.0-47.0); Hemoglobin 9.1 g/dL (12.0-15.0); Immature Granulocyte Absolute 0.01 K/mm3 (0.00-0.031); Immature Granulocyte Percent A 0.2 % (0-0.5); Lymphocytes Absolute Auto 1.85 K/mm3 (0.9-3.2); Lymphocytes Percent Auto 38.8 % (18.3-44.2); Mean Corpuscular HGB Conc 33.1 g/dl (32-36); Mean Corpuscular Hemoglobin 32.3 pg (26-34); Mean Corpuscular Volume 97.5 fl (80-100); Mean Platelet Volume 11.1 fl (7.4-10.4); Monocytes Absolute Auto 0.4 K/mm3 (0.1-0.6); Monocytes Percent Auto 8.4 % (2.6-8.5); Neutrophils Absolute Auto 2.4 K/mm3 (1.3-6.7); Neutrophils Percent Auto 50.8 % (45.5-73.1); Platelet Count Result 213 k/mm3 (150-375); Red Blood Count 2.82 M/mm3 (4.2-5.4); Red Cell Distribution Width 13.8 % (11.5-14.5); White Blood Count 4.8 K/mm3 (4.5-10.0)
--- NOTE | 2020-03-07 10:15 | PM.IMHP ---
H&P: HPI History of Present Illness Date/Time: 03/07/20 10:15 Chief complaint: Seizure breakthrough Narrative: Randa Call is a 79 year old female With a past medical history of AFib, stroke in August 2019, diabetes and seizure disorder who presented emergency room for altered mental status. The patient states that she was at a restaurant and just finished eating pork chops, coleslaw, potatoes and applesauce when she started feeling weak and dizzy. She asked her granddaughter to help her go to the bathroom although she did not have any abdominal pain at this time. The granddaughter had to help her to the bathroom. the granddaughter states that the patient seemed to be more weak on the left side and she was having to support her Grandma which is unusual as Randa is usually independent when walking. She said she did not notice any facial droop but when she sat down to have a bowel movement, she became more altered. She was slurring her words and not making any sense. She was responsive but incoherent and slumped down. They did not take her glucose during this time. The patient states she remembers all of this and just kept saying she was generally weak but did not notice any specific weakness on either side of her body. She denied chest pain at this time. The granddaughter called 911 but was unable to get transport so they took her to the emergency room themselves. She remained altered for about 2 hours until she finally came to. The granddaughter states she did not notice any seizure activity and this was not like her normal seizure jerking or movements. Today, the patient is alert and oriented x4 but tired. She denies chest pain, shortness of breath, coughing, dysuria, diarrhea, constipation or double vision. She has not noticed any weakness, numbness, tingling or problems with speech. 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 Chronic anemia With history of blood transfusion. Congestive heart failure Left ventricular systolic function low end of normal on cardiac catheterization in August 2019. Constipation Coronary artery disease Status post 2 vessel CABG and drug-eluting stent to the left circumflex. Depression Dysphagia following cerebrovascular accident Essential hypertension Hyperlipidemia Hypothyroidism Insulin dependent diabetes mellitus Hemoglobin A1c was 8.0% in August 2019. Nausea & vomiting Screening for colon cancer Surgical History Surgical History History of cardiac catheterization (~08/2019) Drug-eluting stent to the left circumflex done at [facility]. History of cataract surgery History of hysterectomy History of loop recorder History of two vessel coronary artery bypass graft Family History Family History Father Malignant neoplasm of prostate Mother Heart disease Sibling Diabetes mellitus Social History Social History (Reviewed 03/03/20 @ 14:25 by Kimberlyn Greenberg [facility]) Social History: Sadie GORE. Former smoker quit 45 years ago. No Alcohol or drug use. Code status: Full code. Smoking packs per day: 0.5 Smoking cigarettes per day: 10.0 Smoking status: Former smoker Tobacco type: cigarettes Smoking end date: 05/23/64 Additional smoking assessment comments: Quit 20 years ago Alcohol intake: never Substance use: never Substance use type: does not use Additional living arrangements comments: Patient lives in her own home in [place]. She has a cat at home. 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 Gender identity (if verbal
[2020-03-07] MEDS: DOCUSATE SODIUM 100 MG CAPSULE PO (10:56)
[2020-03-07] MEDS: levETIRAcetam 500 MG TABLET PO ×2 (10:56→20:09)
[2020-03-07] MEDS: LEVOTHYROXINE SODIUM 150 MCG TABLET PO (10:56)
[2020-03-07] MEDS: METOPROLOL TARTRATE 25 MG TABLET PO ×2 (10:56→18:08)
[2020-03-07] MEDS: hydroCHLOROthiazide 25 MG TABLET PO (10:56)
[2020-03-07] MEDS: amLODIPine BESYLATE 5 MG TABLET 10 MG PO (10:56)
[2020-03-07] MEDS: ISOSORBIDE MONONITRATE 60 MG TAB.ER.24H PO (10:56)
[2020-03-07] MEDS: FERROUS SULFATE 324 MG TABLET PO (10:56)
[2020-03-07 11:02] LABS: Glucose Point of Care 262 (65-105)
[2020-03-07 12:25] LABS: Glucose Point of Care 294 (65-105)
[2020-03-07] MEDS: INSULIN ASPART (*BKC) 100 UNITS/ML SUB-Q ×2 (12:49→18:12)
[2020-03-07] MEDS: APIXABAN 2.5 MG TABLET PO (18:08)
[2020-03-07] MEDS: CLOPIDOGREL BISULFATE 75 MG TABLET PO (18:08)
[2020-03-07 18:13] LABS: Glucose Point of Care 213 (65-105)
[2020-03-07] MEDS: PARoxetine 10 MG TABLET PO (20:10)
[2020-03-07] MEDS: ATORVASTATIN 40 MG TABLET 80 MG PO (20:10)
[2020-03-07] MEDS: INSULIN GLARGINE (*BKC) 100 UNITS/ML 12 UNITS SUB-Q (20:10)
[2020-03-07 20:15] LABS: Glucose Point of Care 192 (65-105)
[2020-03-08] VITALS: PULSE 58
[2020-03-08 04:00] VITALS: PULSE 56
[2020-03-08] MEDS: LEVOTHYROXINE SODIUM 150 MCG TABLET PO (05:53)
[2020-03-08 07:07] LABS: Hematocrit 27.9 % (37.0-47.0); Hemoglobin 9.3 g/dL (12.0-15.0); Mean Corpuscular HGB Conc 33.3 g/dl (32-36); Mean Corpuscular Hemoglobin 32.1 pg (26-34); Mean Corpuscular Volume 96.2 fl (80-100); Mean Platelet Volume 11.1 fl (7.4-10.4); Platelet Count Result 217 k/mm3 (150-375); Red Cell Distribution Width 14.3 % (11.5-14.5); White Blood Count 4.5 K/mm3 (4.5-10.0)
[2020-03-08 07:14] LABS: Anion Gap 2 mmol/L (8-16); Blood Urea Nitrogen 16 mg/dL (7-17); CRP 0.6 mg/dL (<1.0); Calcium 8.2 mg/dL (8.4-10.2); Carbon Dioxide 29 mmol/L (22-30); Chloride 109 mmol/L (98-107); Estimated CRCL calculation 28 ml/min; Estimated Glomerular Filt Rate 44; Glucose 88 mg/dL (65-105); Sodium 140 mmol/L (137-145)
[2020-03-08 08:00] VITALS: PULSE 60
[2020-03-08 08:04] VITALS: PULSE 78
[2020-03-08] MEDS: hydroCHLOROthiazide 25 MG TABLET PO (08:04)
[2020-03-08] MEDS: FERROUS SULFATE 324 MG TABLET PO (08:04)
[2020-03-08] MEDS: ISOSORBIDE MONONITRATE 60 MG TAB.ER.24H PO (08:04)
[2020-03-08] MEDS: POTASSIUM CHLORIDE 20 MEQ TABLET 40 MEQ PO (08:04)
[2020-03-08] MEDS: amLODIPine BESYLATE 5 MG TABLET 10 MG PO (08:04)
[2020-03-08] MEDS: CLOPIDOGREL BISULFATE 75 MG TABLET PO (08:04)
[2020-03-08] MEDS: APIXABAN 2.5 MG TABLET PO (08:04)
[2020-03-08] MEDS: METOPROLOL TARTRATE 25 MG TABLET PO (08:04)
[2020-03-08] MEDS: levETIRAcetam 500 MG TABLET PO (08:05)
[2020-03-08] MEDS: DOCUSATE SODIUM 100 MG CAPSULE PO (08:05)
[2020-03-08 08:16] LABS: Glucose Point of Care 77 (65-105)
[2020-03-08 11:49] LABS: Glucose Point of Care 205 (65-105)
[2020-03-08] MEDS: INSULIN ASPART (*BKC) 100 UNITS/ML SUB-Q (11:58)
[2020-03-08 12:00] VITALS: PULSE 63
--- NOTE | 2020-03-08 13:20 | WPDNEURCNPN ---
Assessment and Plan Assessment and plan (1) Afib: Code(s): I48.91 - Unspecified atrial fibrillation Status: Acute (2) Unresponsive episode: Code(s): R41.89 - Other symptoms and signs involving cognitive functions and awareness Status: Acute (3) History of CVA (cerebrovascular accident): Code(s): Z86.73 - Personal history of transient ischemic attack (TIA), and cerebral infarction without residual deficits Status: Acute (4) Essential hypertension: Code(s): I10 - Essential (primary) hypertension Status: Chronic (5) TIA (transient ischemic attack): Code(s): G45.9 - Transient cerebral ischemic attack, unspecified Status: Acute Additional Plan TIA versus the new stroke plans to evaluate her completely she is taking apixaban 2.5 mg twice a day along with Plavix 75 mg daily and her diabetic treatment accordingly Consult date: 03/08/20 Time Seen: 13:00 HPI: Randa Call is a 79 year old female has been admitted to [facility] through the emergency room for the complaints of the change in the mental status. As per the information available she was at a restaurant on just finished eating her dinner when she started feeling weak and dizzy and ask her granddaughter to help her go to the bathroom though she did not have any abdominal pain at that time patient seemed to be very weak on the left side and the granddaughter had to support her grand mal a day usually she is independent when walking he did not notice any facial droop but subsequently her mental status became more altered with slurring of the speech and not making any sense and subsequently slumping down the glucose was not checked at that time the granddaughter called 911 but was unable to get the transport so they brought her to the emergency room no seizures were noted she had no other associated symptoms. Patient does have ongoing history of 1. Atrial fibrillation 2. Diabetes mellitus 3. Seizure disorder 4. Stroke in August of 2019 evaluation this time documented hemoglobin 9.3 with WBC 4.5 electrolytes with potassium only 3.0 and 9 gap of 2 creatinine of 1.2 and GFR estimated 44 with blood sugar 192 MRI documented large old infarct in the distribution of right middle cerebral artery and mild nonspecific white matter disease CTA has been ordered Review of Systems Review of Systems: All systems reviewed & are unremarkable except as noted in HPI and below [facility] Past Medical History Medical History (Updated 03/08/20 @ 13:30 by Kenrick Seymour MD) Afib Cerebrovascular accident (~08/2019) 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 Chronic anemia With history of blood transfusion. Congestive heart failure Left ventricular systolic function low end of normal on cardiac catheterization in August 2019. Constipation Coronary artery disease Status post 2 vessel CABG and drug-eluting stent to the left circumflex. Depression Dysphagia following cerebrovascular accident Essential hypertension Hyperlipidemia Hypothyroidism Insulin dependent diabetes mellitus Hemoglobin A1c was 8.0% in August 2019. Nausea & vomiting Screening for colon cancer Surgical History Surgical History History of cardiac catheterization (~08/2019) Drug-eluting stent to the left circumflex done at [facility]. History of cataract surgery History of hysterectomy History of loop recorder History of two vessel coronary artery bypass graft Family History Family History Father Malignant neoplasm of prostate Mother Heart disease Sibling Diabetes mellitus Social History Social History Social History: Sadie GORE. Former smoker quit 45 years ago. No Alcohol or drug use. Code status: Full code. Smoking packs per day: 0.5 Smoking cigarettes per day: 10.0
[2020-03-08 14:00] VITALS: BP 122/50; PULSE 64; RESP 18; TEMP 36.8; O2SAT 100
--- NOTE | 2020-03-08 14:55 | PM.DS ---
DS: Admitting Diagnosis Admitting Diagnosis Admitting Diagnosis: Seizure breakthrough DS: Discharge Diagnosis Discharge Diagnosis (1) Unresponsive episode: Code(s): R41.89 - Other symptoms and signs involving cognitive functions and awareness Status: Acute Assessment and Plan: -----After speaking with the patient and granddaughter, Jayne, it appears pt may have had a TIA. MRI negative for new stroke. Patient was previously Plavix and Eliquis 2.5 mg b.i.d.. I have increased her Eliquis to 5 mg b.i.d., stop the Plavix and started 81 mg of aspirin. As mentioned above, family states the day of admission she was more weak on her left side, wasn't able to walk independently, and was slurring her words and was incoherent. This was not like her usual seizure symptoms per Robert. Nursing staff called [place] who manages her loop recorder and they said they have no device notifications from. Pt and family state she takes her medications routinely and had not missed any dosages. Seizure could be possible, but seems not as likely. She was also having a BM when she became altered but the AMS lasted for 2 hours and she was weak when walking to the bathroom, so vasovagal reaction seems less likely as well. She is a diabetic but had just eaten pork chops, potatoes, slaw and applesauce so hypoglycemia seems less likely. She says she has been running from 200-300 at home. Pt remembers most of the event and her story is consistent with her family's story. She had no CP at this time, just dizziness. Neurology was consulted during her stay and agrees with current plan (2) Seizure disorder: Code(s): G40.909 - Epilepsy, unspecified, not intractable, without status epilepticus Status: Acute Assessment and Plan: -----Likely d/t stroke earlier this year. No signs of infection, mass or new stroke/bleed on CT at [facility]. She does not drink alcohol. Pt is on SSRI which theoretically can lower threshold but rare and thought to be less likely. No other home meds seem to be the cause. Continue home Keppra (3) History of CVA (cerebrovascular accident): Code(s): Z86.73 - Personal history of transient ischemic attack (TIA), and cerebral infarction without residual deficits Status: Acute Assessment and Plan: -----CVA august 2019 affecting her left side in which she completed rehab and got back most of her function. She is discharged on Eliquis and aspirin (4) Coronary artery disease: Qualifiers: Coronary Disease-Associated Artery/Lesion type: unspecified vessel or lesion type [place] vs. transplanted heart: unspecified whether [place] or transplanted heart Associated angina: without angina Qualified Code(s): I25.10 - Atherosclerotic heart disease of [place] coronary artery without angina pectoris Code(s): I25.10 - Atherosclerotic heart disease of [place] coronary artery without angina pectoris Status: Chronic Assessment and Plan: -----No CP today. She had a CABG and stent in the past and on aspirin (5) Insulin dependent diabetes mellitus: Status: Chronic Assessment and Plan: -----Last glucose 205. She is known to have brittle diabetes and can range from 40-400. She may need to run high to avoid hypoglycemia. (6) Essential hypertension: Code(s): I10 - Essential (primary) hypertension Status: Chronic Assessment and Plan: -----Last bp 122/50. Will continue norvasc, imdur, and metoprolol (7) Hypothyroidism: Qualifiers: Hypothyroidism type: unspecified Qualified Code(s): E03.9 - Hypothyroidism, unspecified Code(s): E03.9 - Hypothyroidism, unspecified Status: Acute Assessment and Plan: -----TSH normal, Continue home levothyroxine. (8) Chronic anemia: Code(s): D64.9 - Anemia, unspecified Status: Acute Assessment and Plan: -----chronic and stable. Last hgb 9.3. She is on i
== END 2020-03-08 16:20 | disposition home or self-care (01) ==
PROVIDERS: Physician Assistant; Admitting Provider Internal Medicine; Visit Provider Family Medicine
DX: R41.89 Other symptoms and signs involving cognitive functions and awareness (principal); G40.909 Epilepsy, unspecified, not intractable, without status epilepticus; I48.91 Unspecified atrial fibrillation; G45.9 Transient cerebral ischemic attack, unspecified; I69.354 Hemiplegia and hemiparesis following cerebral infarction affecting left non-dominant side; I69.391 Dysphagia following cerebral infarction; R13.10 Dysphagia, unspecified; E11.9 Type 2 diabetes mellitus without complications; D64.9 Anemia, unspecified; I11.0 Hypertensive heart disease with heart failure; I50.9 Heart failure, unspecified; I25.10 Atherosclerotic heart disease of native coronary artery without angina pectoris; Z95.1 Presence of aortocoronary bypass graft; F32.9 Major depressive disorder, single episode, unspecified; E78.5 Hyperlipidemia, unspecified; E03.9 Hypothyroidism, unspecified; Z79.4 Long term (current) use of insulin; Z87.891 Personal history of nicotine dependence; R90.82 White matter disease, unspecified; R93.89 Abnormal findings on diagnostic imaging of other specified body structures
CPT/HCPCS: 36415; 70496; 70498; 70551; 80048; 84443; 85025; 85027; 86140; 97161; 97165; A9270; G0378; G0379; J1815; Q9967